=== PATIENT | female | born 1960 | race Caucasian/White ===

== ENCOUNTER 2023-07-14 07:49 | Observation (INO) ==
--- NOTE | 2023-07-05 10:54 | Anesthesiology Consultation ---
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 2021 stress echo, showing stress imaging with findings consistent with RCA/Lcx territory ischemia...congenitally bicuspid aortic valve with mild AI present. Abnormal prompted cardiac catheterization, with showed angiographically normal coronary arteries...EKG obtained in clinic today showing normal sinus rhythm with ventricular response of 79 bpm...easily able to meet METS greater than 4, without the development of anginal symptoms. Revised cardiac risk index score of 0 points (class I risk) or 3.9% 30 day risk of , [place] or cardiac arrest. No further cardiac testing recommended prior to undergoing planned oracle scm consultant procedure. .Will update echo...does not need to occur prior to planned procedure..." - tirzepatide instructions: Patient informed by PAT RN to stop 7 days prior to surgery. - Per technology manager on 07/05/23: No known infectious disease contacts, current infectious disease symptoms in past 10 days or COVID positive test result in the past 30 days. Chart Review Chart Review: Acceptable Risk for Surgery and Patient NOT seen in Pre Admission Testing History Surgery Operation Date: 07/14/23 07:00 Proposed Procedures p Robotic Assisted Supracervical Hysterectomy, Robotic Assisted Sacral Colpopexy - Jeffery Hamlin MD Height/Weight Height: 5 ft 4 in Weight: 73.028 kg Allergies Allergy/AdvReac Type Severity Reaction Status Date / Time sulfamethoxazole Allergy Mild Rash Verified 07/05/23 10:02 [From Bactrim] trimethoprim [From Bactrim] Allergy Mild Rash Verified 07/05/23 10:02 Medications Home Medications Medication Instructions Recorded Confirmed Last Taken [place] [facility] 1 tab PO QAM 07/05/23 07/05/23 Unknown Cynthia 1 tab PO QAM 07/05/23 07/05/23 Unknown acetaminophen 650 mg 650 mg PO Q12H PRN Pain 07/05/23 07/05/23 Unknown tablet,extended release clonidine HCl 0.1 mg tablet 0.1 mg PO TID PRN hot flashes/BP 07/05/23 07/05/23 Unknown diphenhydramine HCl 25 mg capsule 50 mg PO HS PRN Sleep 07/05/23 07/05/23 Unknown (Benadryl) famotidine 20 mg tablet (Pepcid) 20 mg PO BID PRN Heartburn 07/05/23 07/05/23 Unknown gabapentin 100 mg tablet 100 mg PO BID PRN Pain 07/05/23 07/05/23 Unknown levothyroxine 125 mcg tablet 125 mcg PO QAM 07/05/23 07/05/23 Unknown (Synthroid) loratadine 10 mg capsule 10 mg PO BID PRN allergies 07/05/23 07/05/23 Unknown melatonin 10 mg tablet,extended 10 mg PO QPM 07/05/23 07/05/23 Unknown release oxybutynin chloride 5 mg tablet 5 mg PO BID PRN urinary symptoms 07/05/23 07/05/23 Unknown rosuvastatin 10 mg tablet (Crestor) 10 mg PO QAM 07/05/23 07/05/23 Unknown spironolactone 25 mg tablet 50 mg PO QAM 07/05/23 07/05/23 Unknown tirzepatide 5 mg/0.5 mL 5 mg subcut WK 07/05/23 07/05/23 Unknown subcutaneous pen injector (Mounjaro) Past Medical History Medical History (Updated 07/05/23 @ 10:48 by Megha Ventura PA-C) Aortic regurgitation follows with [facility] cardio "mild" Arm pain rt arm pain, 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, reason for gabapentin Cardiac murmur has bicuspid instead of tricuspid valve - mild - sees [facility] cardio Female bladder prolapse GERD (gastroesophageal reflux disease) Hiatal hernia History of chronic urinary tract infection History of postoperative nausea and vomiting Hypercholesteremia Hypothyroid Insomnia Orthostatic hypertension not noted in S cardio or PCP records, per patient taking clonidine PRN for this, PCP records note prn clonidine is for hot flashes Seasonal allergies Urinary frequency Past Surgical History Surgical History History of colonoscopy History of esophagogastroduodenoscopy (EGD) Hx of cardiac catheterization (~2020) [facility], pos stress, no stents, Hx of removal of cyst ganglion cyst, left hand, had general anesthesia Social History Smoking Status: Never smoker Do You Dip or Chew Tobacco: No Hx Alcohol Use: No Hx Substance Use: No substance use type: does not use Testing Laboratory Results 06/15/23 WBC: 6.3 H/H: 13/40 PLATELETS: 327,000 SODIUM: 137 POTASSIUM: 4 CHLORIDE: 100 CO2: 27 BUN: 15 CREATININE: 0.8 GLUCOSE: 107 Electrocardiogram Date: 06/23/23 NSR, rate 79 bpm Left axis deviation Stress Test Date: 04/19/21 Exercise Positive for inducible ischemia-subsequent cardiac catheterization completed 05/03/21: normal coronary arteries EF 55-59% Mild cLVH Grade I diastolic dysfunction Congenitally bicuspid aortic valve, mild aortic valve regurgitation Cardiac Catheterization Date: 05/03/21 Left main: no evidence of disease LAD: medium caliber vessel Cx: no evidence of disease RCA: no evidence of disease Coronary arteries are angiographically normal
--- NOTE | 2023-07-14 05:04 | History & Physical Report ---
Date of Service July 14, 2023 Assessment & Plan (1) Incomplete uterovaginal prolapse: Plan: Options were reviewed including doing nothing, Kegel exercises, pessary therapy or surgery. Patient was interested in surgery. I reviewed vaginal approach versus robotic a pproaches. She was interested in the robotic approach and also requested to have her ovaries removed. We reviewed robotic hysterectomy, sacral colpopexy, possible posterior repair, and cystoscopy We further reviewed the risks of surgery including infection, bleeding, injury, pain, mesh exposure, bowel obstruction, urinary incontinence, urinary retention and prolapse recurrence. Patient requests to keep her ovaries. Patient counseled that she may develop cysts, tumors, or even ovarian cancer in the future. She understands and still wishes to keep her oaries. All questions answered. Informed consent confirmed. Present on Admission?: Yes Admission and Anticipated Discharge Date Admission Date: 07/14/2023 Anticipated date of discharge: 07/15/23 History of Present Illness Chief Complaint: Uterovaginal prolapse Primary Care Provider: NO PCP Paula Arzate complains of feeling a vaginal bulge in the past year. Since seeing Dr. Olsen a month ago, she feels that the bulge has improved somewhat. But she has history of 5-6 UTI's this past year and is concerned that the prolapse is contributing to the UTI's. She has some urinary frequency and urgency every 3 hours, nocturia x 2. A few episodes of Urge incontinence if she waits tool long. She denies stress incontinence with coughing or sneezing currently or in the distant past. She feels that she must void twice at each visit to the restroom to completely empty. Allergies Allergy/AdvReac Type Severity Reaction Status Date / Time sulfamethoxazole Allergy Mild Rash Verified 07/14/23 08:11 [From Bactrim] trimethoprim [From Bactrim] Allergy Mild Rash Verified 07/14/23 08:11 Home Medications Medication Instructions Recorded Confirmed Type [place] [facility] 1 tab PO QAM 07/05/23 07/14/23 History Cynthia 1 tab PO QAM 07/05/23 07/14/23 History acetaminophen 650 mg 650 mg PO Q12H PRN Pain 07/05/23 07/14/23 History tablet,extended release clonidine HCl 0.1 mg tablet 0.1 mg PO TID PRN hot flashes/BP 07/05/23 07/14/23 History diphenhydramine HCl 25 mg capsule 50 mg PO HS PRN Sleep 07/05/23 07/14/23 History (Benadryl) famotidine 20 mg tablet (Pepcid) 20 mg PO BID PRN Heartburn 07/05/23 07/14/23 History gabapentin 100 mg tablet 100 mg PO BID PRN Pain 07/05/23 07/14/23 History levothyroxine 125 mcg tablet 125 mcg PO QAM 07/05/23 07/14/23 History (Synthroid) loratadine 10 mg capsule 10 mg PO BID PRN allergies 07/05/23 07/14/23 History melatonin 10 mg tablet,extended 10 mg PO QPM 07/05/23 07/14/23 History release oxybutynin chloride 5 mg tablet 5 mg PO BID PRN urinary symptoms 07/05/23 07/14/23 History rosuvastatin 10 mg tablet (Crestor) 10 mg PO QAM 07/05/23 07/14/23 History spironolactone 25 mg tablet 50 mg PO QAM 07/05/23 07/14/23 History tirzepatide 5 mg/0.5 mL 5 mg subcut WK 07/05/23 07/14/23 History subcutaneous pen injector (Mounjaro) Past Med/Surg History Problem List Incomplete uterovaginal prolapse Medical History History of chronic urinary tract infection Aortic regurgitation follows with [facility] cardio "mild" Cardiac murmur has bicuspid instead of tricuspid valve - mild - sees [facility] cardio Orthostatic hypertension not noted in [facility] cardio or PCP records, per patient taking clonidine PRN for this, PCP records note prn clonidine is for hot flashes Hypercholesteremia Hypothyroid Insomnia Arm pain rt arm pain, 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, reason for gabapentin Female bladder prolapse Urinary frequency Seasonal allergies History of postoperative nausea and vomiting Hiatal hernia GERD (gastroesophageal reflux disease) Surgical History Hx of cardiac catheterization (~2020) [facility] [place], pos stress, no stents, History of esophagogastroduodenoscopy (EGD) History of colonoscopy Hx of removal of cyst ganglion cyst, left hand, had general anesthesia Social History Smoking Status: Never smoker Second Hand Exposure: No; Do You Dip or Chew Tobacco: No; Tobacco Cessation Education Requested by Patient: No Hx Alcohol Use: No Hx Substance Use: No Preferred Language: Croatian Communication Ability: Effective Social Economist Required: No Beliefs That Will Affect Care: None Current Living Situation: Spouse Other Information That Helps Us Care for You: No Feels Safe at Home: Yes Safety Concerns: Feels Safe At This Time Assistive Devices: Glasses Review of Systems Review of Systems: All systems reviewed & are unremarkable except as noted in HPI & below Physical Exam Constitutional: WD/WN, vitals as above Eyes: PERRL, conjunctivae normal, anicteric sclerae Neck: normal visual inspection Respiratory: normal respiratory effort Cardiovascular: Rate/Rhythm: regular rate and regular rhythm Gastrointestinal (Abdomen): Inspection/Auscultation: abdomen normal to inspection Skin: no rashes, warm and dry Psychiatric: A+Ox3, euthymic affect Results & Data Results & Data Laboratory Results hgb 13.1 Cr 0.8 Hgb A1c 5.9 Code Status & VTE Plan VTE Prophylaxis Plan VTE Prophylaxis will be ordered: Yes
[2023-07-14] MEDS ORDERED: SUGAMMADEX SODIUM 200 MG/2 ML VIAL IV ONE (08:27)
[2023-07-14] MEDS ORDERED: fentaNYL citrate PF 100 MCG/2 ML VIAL ONE (08:27)
[2023-07-14] MEDS ORDERED: DEXAMETHASONE SOD INJ 4 MG/ML VIAL ONE (08:27)
[2023-07-14] MEDS ORDERED: LIDOCAINE 2% 2 ML VIAL/AMP(20MG/ML) INFIL ONE (08:27)
[2023-07-14] MEDS ORDERED: MIDAZOLAM HCL 1 MG/ML 2ML VIAL ONE (08:27)
[2023-07-14] MEDS ORDERED: ONDANSETRON INJ 2 MG/ML 2 ML VIAL ONE (08:27)
[2023-07-14] MEDS ORDERED: PROPOFOL IV EMULSION 10 MG/ML 20 ML VIAL IV ONE (08:27)
[2023-07-14] MEDS ORDERED: ROCURONIUM BROMIDE 10 MG/ML 5 ML VIAL IV ONE (08:27)
[2023-07-14] MEDS: LR 15ML/HR IV SCH (08:29)
[2023-07-14] MEDS: metroNIDAZOLE 500 MG/100 ML BAG IV SCH (08:39)
[2023-07-14] MEDS ORDERED: ePHEDrine sulfate 50 MG/ML AMP IV PRN (09:22)
[2023-07-14] MEDS ORDERED: fentaNYL citrate PF 100 MCG/2 ML VIAL IV PRN (09:22)
[2023-07-14] MEDS ORDERED: PROMETHAZINE HCL 6.25 MG in SODIUM CHLORIDE 0.9% 50 ML IV PRN (09:22)
[2023-07-14] MEDS ORDERED: ONDANSETRON INJ 2 MG/ML 2 ML VIAL IV PRN (09:22)
[2023-07-14] MEDS ORDERED: ATROPINE SULFATE 0.1 MG/ML 10ML SYR IV PRN (09:22)
[2023-07-14] MEDS ORDERED: HYDROmorphone INJ 2 MG/ML SYR/VIAL IV PRN (09:22)
[2023-07-14] MEDS ORDERED: ACETAMINOPHEN 1000 MG/100 ML IV IV ONE (09:26)
[2023-07-14] MEDS: ceFAZolin 2000MG 2,000 MG/15 ML SYR IV SCH (09:52)
[2023-07-14] MEDS ORDERED: HYDROmorphone INJ 2 MG/ML SYR/VIAL ONE (10:15)
[2023-07-14] MEDS ORDERED: oxyCODONE/ACETAMINOPHEN 5mg/325mg TAB PO PRN ×2 (12:50)
[2023-07-14] MEDS: BUPIVACAINE 0.5 % 5 MG/1 ML MPF 30ML VIAL ONE (12:50)
[2023-07-14] MEDS ORDERED: IBUPROFEN 600 MG TAB PO PRN (12:50)
[2023-07-14] MEDS ORDERED: FAMOTIDINE 20 MG TAB PO PRN (12:55)
--- NOTE | 2023-07-14 13:03 | Operative Report ---
Post Operative Report Pre & Post Diagnosis Operation Date: 07/14/23 09:50 <No data on this case meets the specified criteria> Preoperative Diagnosis: Uterovaginal prolapse, cystocele Postoperative Diagnosis: Same I identified the patient and participated in the time-out.: Yes Procedure Operation Date: 07/14/23 09:50 <No data on this case meets the specified criteria> Robotic Hysterectomy, Bilateral Salpingectomy, Sacral colpopexy, Cystoscopy Surgeon Jeffery Hamlin MD Technical Training Coordinator Jyotsna Page PA-C Estimated Blood Loss 30 Findings Consistent with Post-Op Diagnosis Grade 3 cystocele, Grade 2 uterine prolapse. Atrophic normal appearing ovaries bilaterally. Normal cystoscopy without lesions. Excellent efflux of ureters bilaterally. Fluids Crystalloid Specimens cervix, uterus, bilateral fallopian tubes Drains Chaves catheter Anesthesia Type General Complications none Disposition Accompanied Patient To Recovery: Yes Disposition: Recovery Room Indications symptomatic uterovaginal prolapse, feeling of incomplete bladder emptying, recurrent UTI's Description of Procedure After Paula rAzate was identified in the preoperative area, the diagnosis, indications, risks, benefits, and alternatives were reviewed. Patient requested to keep her ovaries but consented to robotic hysterectomy, bilateral salpingectomy, sacral colpopexy, cystoscopy. Risks of infection, bleeding, injury, urinary incontinence, mesh exposure, pain were discussed. All questions answered. Informed consent confirmed. She was then taken to the operating room and given general anesthesia per anesthesia service. She was placed in dorsal lithotomy position using Cuauhtemoc stirrups. She was prepped and draped in the usual fashion. Time out was performed. A Chaves catheter was inserted into the bladder. The cervix was visible but the cervical os was obliterated. A bulb syringe attached to a Hulka tenaculum was placed in the vagina. At the umbilicus, an 8 mm skin incision was made. An 8 mm trocar with Optiview was advanced through the incision, fascia, peritoneum, into the abdominal cavity under direct visualization. CO2 gas was attached with an opening pressure of less than 5 mm Hg. The abdomen was insufflated. On the left, two 8 mm trocars were placed under direct visualization. The right, two 8 mm trocars were placed under direct visualization. Patient was placed in Trendelenburg position to allow retraction of the bowel out the pelvis. The robot was docked and the robotic instruments were placed. The cornua of the uterus was grasped to elevate the uterus out of the pelvis. The left fallopian tube was dissected from the left atrophic ovary. The left utero-ovarian pedicle was grasped, vessel sealed, and transected. The left round ligament was grasped, vessel sealed, and transected. The bladder flap was developed. The left uterine vessels were dissected free. The left uterine vessels were grasped, vessel sealed, and transected at the level of the bulb syringe previously placed in the vagina. The right fallopian tube was dissected from the right atrophic ovary. The right utero-ovarian pedicle was grasped, vessel sealed, and transected. The right round ligament was grasped, vessel sealed, and transected. The bladder flap was completed. The right uterine vessels were dissected free. The right uterine vessels were grasped, vessel sealed, and transected at the level of the bulb syringe previously placed in the vagina. The bulb syringe was well visualized at the junction of the cervix and vagina. A colpotomy incision was made around the cervix. The cervix, uterus, bilateral fallopian tubes were delivered out the vagina and sent to pathology as specimen. Excellent hemostasis was noted. The cuff was closed in two layers with 0 delayed absorbable V-lock suture. The bladder was then dissected off the anterior vagina for 6 cm. The rectum was dissected off the posterior vagina for 8 cm. The peritoneum overlying the sacral promontory was incised and extended along the right derik-colic gutter. The Y-mesh was secured to the anterior and posterior vaginal rivers with interrupted sutures of CV-3 [place]-ruth suture. The tail end of the y-mesh was secured to the anterior longitudnal ligament just below the sacral promontory with two interrupted sutures of CV-0 [place] ruth. Excellent hemostasis was noted. The peritoneum was closed over the Y mesh with 2-0 v-lock suture in a running fashion. The robot was undocked. The trocars were removed under direct visualization. The gas was allowed to recede. The skin incisions were closed with 4-0 Monocryl in a subcuticular fashion. The bulb syringe was removed from the vagina. The vaginal cuff was intact and well supported. The anterior and posterior vaginal rivers were well supported with a normal genital hiatus. The Chaves catheter was removed. Cystoscopy was performed in a systematic fashion. No lesions were noted. Excellent efflux of ureters were noted bilaterally. The bladder was drained, the cystoscoped removed, and the Chaves catheter was reinserted. All sponge, lap and needle counts were correct. The patient was awakened, extubated, and sent to recovery room in good condition. I attest to the content of the Intraoperative Record and any orders documented therein. Any exceptions are noted below. No qualified resident was available. An advanced practice provider was necessary for assistance to position the patient, drape the patient, retract, irrigate, exchange robotic instruments, and close incisions.
--- NOTE | 2023-07-14 13:59 | Anesthesiology Progress Note ---
Date of Service July 14, 2023 Anesthesia Post Procedure Vital Signs Vital Signs: Temp Pulse Pulse Resp BP Pulse Ox O2 Del Method 07/14/23 13:50 36.3 C L 77 11 L 158/75 H 92 Room Air 07/14/23 13:40 36.3 C L 78 17 158/86 H 99 Room Air 07/14/23 13:30 74 15 131/85 100 Oxymask 07/14/23 13:20 78 13 171/81 H 98 Oxymask 07/14/23 13:10 78 17 179/80 H 97 Oxymask 07/14/23 13:00 79 13 169/77 H 98 Oxymask 07/14/23 12:54 36.1 C L 99 H 17 163/81 H 98 Oxymask 07/14/23 08:17 36.5 C 66 20 124/65 99 Room Air O2 Flow Rate 07/14/23 13:50 2 07/14/23 13:40 07/14/23 13:30 3 07/14/23 13:20 5 07/14/23 13:10 7 07/14/23 13:00 7 07/14/23 12:54 10 07/14/23 08:17 Transfer of Care Handoff Completed per policy Notes Mental Status: alert / awake / arousable Patient Amnestic to Procedure: Yes Nausea / Vomiting: adequately controlled Pain: adequately controlled Airway Patency, RR, SpO2: stable & adequate BP & HR: stable & adequate Hydration State: stable & adequate Anesthetic Complications: no major complications apparent
[2023-07-14] MEDS: GLYCERIN ADULT 12 SUPP/BOX SUPP PR ONE (15:45)
[2023-07-14] MEDS ORDERED: KETOROLAC TROMETHAMINE 15 MG/ML VIAL IM PRN (16:10)
[2023-07-14] MEDS ORDERED: Nursing to Pharmacy Communication SCH ×2 (16:15→21:30)
[2023-07-14] MEDS: KETOROLAC TROMETHAMINE 15 MG/ML VIAL ONE (16:17)
[2023-07-14] MEDS ORDERED: oxyBUTYnin chloride 5 MG TAB PO PRN (19:13)
[2023-07-14] MEDS ORDERED: diphenhydrAMINE Capsule 25 MG CAP PO PRN (19:13)
[2023-07-14] MEDS ORDERED: cloNIDine HCL 0.1 MG TAB PO PRN (19:13)
[2023-07-14] MEDS ORDERED: LORATADINE 10 MG TAB PO PRN (19:20)
[2023-07-14] MEDS ORDERED: GABAPENTIN 100 MG CAP PO PRN (21:00)
[2023-07-14] MEDS: NITROFURANTOIN MONOHYDRATE 100 MG CAP PO SCH (21:00)
[2023-07-14] MEDS: ACETAMINOPHEN 325 MG TAB PO PRN (21:01)
[2023-07-14] MEDS: MELATONIN 3 MG TAB PO SCH (21:01)
[2023-07-14] MEDS: cloNIDine HCL 0.1 MG TAB PO SCH (22:20)
[2023-07-15] MEDS: LEVOTHYROXINE SODIUM 125 MCG TABLET PO SCH (05:59)
--- NOTE | 2023-07-15 06:37 | Gynecologic Progress Note ---
Date of Service July 15, 2023 Assessment & Plan (1) Incomplete uterovaginal prolapse: Plan: POD#1 s/p robotic total hysterectomy, bilateral salpingectomy, sacral colpopexy, cystoscopy Doing well. Discharge home today. post op instructions reviewed. Procedure r kathe. All questions answered. Follow up in 2 weeks and 6 weeks. Ibuprofen and Macrobid RX. Present on Admission?: Yes Admission and Anticipated Discharge Date Admission Date: July 14, 2023 Anticipated date of discharge: 07/15/23 Subjective Feeling well. Pain well controlled. No nausea, no SOB, noCP Review of Systems Review of Systems: All systems reviewed & are unremarkable except as noted in HPI & below Physical Exam Constitutional: WD/WN, vitals as above Eyes: PERRL, conjunctivae normal, anicteric sclerae Neck: normal visual inspection Respiratory: normal respiratory effort Cardiovascular: Rate/Rhythm: regular rate and regular rhythm Gastrointestinal (Abdomen): Inspection/Auscultation: abdomen normal to inspection Incisions clean dry and intact Musculoskeletal: NT calves, neg edema Skin: no rashes, warm and dry Psychiatric: A+Ox3, euthymic affect Results & Data Vital Signs (Past 12 Hours) Vital Signs Temp Pulse Pulse Resp BP BP Pulse Ox 07/15/23 03:17 37 C 83 18 99/59 L 97 07/14/23 23:22 37.6 C H 98 H 18 122/64 94 07/14/23 21:00 37.5 C 109 H 18 148/90 H 148/90 H 07/14/23 21:00 O2 Del Method 07/15/23 03:17 Room Air 07/14/23 23:22 Room Air 07/14/23 21:00 Room Air 07/14/23 21:00 Room Air
--- NOTE | 2023-07-15 06:47 | Discharge Summary ---
Date of Service July 15, 2023 Admission HPI Per Admitting Provider Paula Arzate complains of feeling a vaginal bulge in the past year. Since seeing Dr. Olsen a month ago, she feels that the bulge has improved somewhat. But she has history of 5-6 UTI's this past year and is concerned that the prolapse is contributing to the UTI's. She has some urinary frequency and urgency every 3 hours, nocturia x 2. A few episodes of Urge incontinence if she waits tool long. She denies stress incontinence with coughing or sneezing currently or in the distant past. She feels that she must void twice at each visit to the restroom to completely empty. Admission Exam (Per Admitting) Constitutional WD/WN, vitals as above Eyes PERRL, conjunctivae normal, anicteric sclerae Neck normal visual inspection Respiratory normal respiratory effort Cardiovascular Rate/Rhythm: regular rate and regular rhythm Gastrointestinal (Abdomen) Inspection/Auscultation: abdomen normal to inspection Skin no rashes, warm and dry Psychiatric A+Ox3, euthymic affect Discharge Data Procedures Performed Operation Date: 07/14/23 09:50 Actual Procedures p Robotic Assisted Supracervical Hysterectomy, Robotic Assisted Sacral Colpopexy(Not Applicable) - Jeffery Hamlin MD Hospital Course (1) Incomplete uterovaginal prolapse: POD#1 s/p robotic total hysterectomy, bilateral salpingectomy, sacral colpopexy, cystoscopy Doing well. Discharge home today. post op instructions reviewed. Procedure reviewed. All questions answered. Follow up in 2 weeks and 6 weeks. Ibuprofen and Macrobid RX.
[2023-07-15 06:58] LABS: Basophils # (auto) 0.01 K/uL (0.00-0.20); Basophils % (auto) 0.1 %; Hematocrit (blood only) 36.7 % (37.0-47.0); Hemoglobin 12.1 g/dl (12.0-16.0); Immature Granulocytes # (auto) 0.21 K/uL (0.01-0.20); Immature Granulocytes % (auto) 1.9 %; Lymphocytes # (auto) 0.91 K/uL (1.20-3.40); Lymphocytes % (auto) 8.1 %; Mean Corpuscular Hemoglobin 30.8 pg (25.0-34.0); Mean Corpuscular Volume 93.4 fL (80.0-100.0); Monocytes # (auto) 0.96 K/uL (0.11-0.59); Monocytes % (auto) 8.5 %; Neutrophils # (auto) 9.17 K/uL (1.40-6.50); Neutrophils % (auto) 81.4 %; Platelet Count 276 K/uL (130-400); RDW Coefficient of Variation 11.7 % (11.5-14.5); RDW Standard Deviation 40.4 fL (36.4-46.3); Red Blood Count 3.93 M/uL (4.20-5.40); White Blood Count 11.26 K/ul (4.8-10.8)
[2023-07-15 07:02] LABS: BUN Creatinine Ratio 19.4 (10-20); Calcium 8.6 mg/dl (8.6-10.3); Creatinine Clr Calc Pharmacy 82.5 ml/min; Est GFR (African American) 106.9 ml/min; Est GFR (Non-African American) 92.2 ml/min; Potassium 4.6 mmol/L (3.5-5.1)
[2023-07-15] MEDS: SPIRONOLACTONE 25 MG TAB PO SCH (08:24)
[2023-07-15] MEDS: ROSUVASTATIN CALCIUM 10 MG TAB PO SCH (08:24)
[2023-07-15] MEDS ORDERED: [UNRECOGNIZED DRUG - REMARK] PO SCH (09:00)
[2023-07-15] MEDS ORDERED: [UNRECOGNIZED DRUG - OTHER] PO SCH (09:00)
--- OUTSIDE RECORDS SUMMARY | 2023-07-15 09:53 | External Medical Summary ---
Author Name Unknown Address Unknown Organization [id number]:[facility] - [address] [facility] [address] Laboratory Report Ordering Provider Test Date Status SHANDA MARY 07/10/2023 07:33:50 Final Observation Date Value Abnormality Reference (Units ) Status Bacteria identified in Specimen by Culture 07/10/2023 07:33:50 [id number]^ENTEROC OCCUS SPECIES Abnormal Final 10,000 to 100,000 colonies/m L Enterococcus species Bacteria identified in Specimen by Culture 07/10/2023 07:33:50 [id number]^STAPHYLOCOCCUS AUREUS MRSA Abnormal Final 10,000 to 100,000 colonies/m L Staphylococcus aureus MRSA, This patient may require isolation. Performing Location [facility] [place] [address] [facility] [address] Ordering Provider Test Date Status SHANDA MARY 07/10/2023 07:33:50 Final Observation Date Value Abnormality Reference (Units ) Status Ampicillin 07/10/2023 07:33:50 <=2 Susceptible Final Nitrofurantoin susceptibility 07/10/2023 07:33:50 <=16 Susceptible Final Tetracyclinesusceptibility 07/10/2023 07:33:50 >=16 Resistant Final Vancomycinsusceptibility 07/10/2023 07:33:50 1 Susceptible Final Performing Location [facility] [place] [address] [facility] [id number] Ordering Provider Test Date Status SHANDA MARY 07/10/2023 07:33:50 Final Observation Date Value Abnormality Reference (Units ) Status Nitrofurantoin susceptibility 07/10/2023 07:33:50 <=16 Susceptible Final Oxacillinsusceptibility 07/10/2023 07:33:50 >=4 Resistant Final Oxacillin/Methicillin resist ant Staphylococci are considered clinically resistant to all Beta-lactam (Penicillin and Cephalosporin) antibiotics. Quinolone antibiotics should also not be used for Staphylococci that are Oxacillin resistant. Tetracyclinesusceptibility 07/10/2023 07:33:50 <=1 Sera ceptible Final TMP-SMZ susceptibility 07/10/2023 07:33:50 <=10 Suscept ible Final Vancomycinsusceptibility 07/10/2023 07:33:50 1 Susce ptible Final Test: Culture, Urine, Quanti tative
Specimen Source: Urine, Clean Catch
Specimen Type: Urine
Specimen Date: 07/10/2023 7:33 AM
Result Date: 07/13/2023 2:06 PM
Result Status: Final result
Abnormal: Yes
Resulting Lab: [facility]
[address]
[facility] [address]

CULTURE

10,000 to 100,000 colonies/mL Enterococcus species (Abnormal)

10,000 to 100,000 colonies/mL Staphylococcus aureus MRSA, This patient may
require isolation. (Abnormal)

SUSCEPTIBILITY

Enterococcus Staphylococcus
species aureus MRSA, This
patient may
require
isolation.
METHOD MICROBROTH MICROBROTH
DILUTIONS DILUTIONS

AMPICILLIN <=2 Susceptible
NITROFURANTOIN <=16 Susceptible <=16 Susceptible
OXACILLIN >=4 Resistant
TETRACYCLINE >=16 Resistant <=1 Susceptible
TRIMETH/SULFAMETHOXAZOLE <=10 Susceptible
VANCOMYCIN 1 Susceptible 1 Susceptible

null Performing Location [facility] [place] [address] [facility] [address]
--- OUTSIDE RECORDS SUMMARY | 2023-07-15 09:53 | External Medical Summary | Summary of Care ---
Author Name Unknown Organization [facility] Address [address] [place] [address] Phone [phone] Care Team Providers Care Associate Technician Name Role Phone Petra De La Cruz PA-C Primary Care Provider Reason for Visit * Reason Comments Outpatient Testing Encounter Details Date Type Department Care Team (Late st Contact Info) Description 07/10/2023 7:40 AM EDT Laboratory Laboratory, [place] [id number] [place] [address] [facility], Lab [address] [place] [id number] Overweight (BMI 25.0-29.9); Recurrent UTI Allergies Active Allergy Reactions Criticality Noted Date Comments Sulfa Antibiotics Rash Low 08/04/2020 documented as of this encounter (statuses as of 07/10/2023) Medications Medication Sig Dispensed Refills Start Date End Date Status diphenhydrAMINE HCl 25 MG Oral Capsule at bedtime as needed. 0 Active Caltrate 600+D3 Soft 600-800 MG-UNIT Oral Tablet Chewable (Calcium Carb-Cholecalciferol ) Take by mouth. Patient takes 2 daily. 0 Active Slow Fe 142 (45 Fe) MG Oral Tablet Extended Release (Ferrous Sulfate ER) Take by mouth 2 times a day. 0 Active Rosuvastatin Calcium 10 MG Oral Tablet (Crestor)Indications :Other hyperlipidemia TAKE 1 TABLET BY MOUTH IN THE MORNING 30 Tablet 5 09/19/2022 Active oxyBUTYnin Chloride 5 MG Oral Tablet (Ditropan)Indication s:Overactive bladder due to prolapse of female genital organ TAKE ONE-HALF (1/2) TABLET IN THE MORNING, ONE-HALF (1/2) TABLET AT NOON AND ONE-HALF (1/2) TABLET BEFORE BEDTIME 135 Tablet 3 12/19/2022 Active Additional Information Patient taking differently: Takes 1/2 tab in morning and 1 tablet at night, Reported on 06/23/2023 Estradiol 0.1 MG/GM Vaginal Cream (Estrace) Apply pea sized amount (0.5 gm) vaginally every other night. 42.5 g 3 01/11/2023 Active Additional Information Patient not taking.Reported on 06/23/2023 cloNIDine HCl 0.1 MG Oral Tablet (Catapres) TAKE 1 TABLET BY MOUTH EVERY MORNING, 1 TABLET BY MOUTH AT NOON AND 1 TABLET BY MOUTH AT BEDTIME 270 Tablet 0 04/14/2023 Active Additional Information Patient taking differently: TAKE TABLET BY MOUTH EVERY MORNING, AND 2 TABLET BY MOUTH AT BEDTIME, Reported on 06/23/2023 Synthroid 125 MCG Oral TabletIndications:Ac quired hypothyroidism,Abnor mal stress echocardiogram TAKE 1 TABLET BY MOUTH IN THE MORNING AT LEAST 30 MINUTES PRIOR TO BREAKFAST OR OTHER MEDICATIONS 90 Tablet 0 05/10/2023 Active Spironolactone 25 MG Oral Tablet (Aldactone) TAKE 1 TO 2 TABLETS ONCE DAILY 180 Tablet 1 06/05/2023 Active Gabapentin 100 MG Oral Capsule (Neurontin)Indicatio ns:Nerve pain TAKE 1 CAPSULE BY MOUTH ONCE DAILY NEEDED FOR PAIN 90 Capsule 0 06/19/2023 Active documented as of this encounter (statuses as of 07/10/2023) Active Problems Problem Noted Date Diagnosed Date Postoperative state 01/23/2023 YONIS III (cervical intraepithelial neoplasia III) 11/29/2022 Encounter for Papanicolaou c ervical smear to confirm findings of recent normal smear following initial abnormal smear 11/29/2022 Dyslipidemia, goal LDL below 70 04/22/2021 Positive cardiac stress test 04/22/2021 HTN, goal below 150/90 08/04/2020 Acquired hypothyroidism 08/04/2020 Lower extremity edema 08/04/2020 Prolapse of female genital organs 11/13/2018 Mixed stress and urge urinary incontinence 11/13 documented as of this encounter (statuses as of 07/10/2023) Immunizations Name Administration Dates Next Due PPD 01/28/2023, 2,12/21/2021,2021,06/12/2020 Seasonal Influenza Virus Vac cine, Unspecified Formulation 01/06/2023 Seasonal Influenza, PF, 6 M & above, IM , (FluLaval or Fluzone) 10/30/2020 Seasonal Influenza, QUAD, wi th Preserv, 6 mons & Above, 0.5 mL, IM 12/28/2021 TDAP (age 10 and older)(Boostrix) 08/04/2020 documented as of this encounter Social History Tobacco Use Types Packs/Day Years Used Date Smoking Tobacco: Never Smokeless Tobacco: Never Alcohol Use Standard Drinks/Week Comments Yes 0 (1 standard drink = 0.6 oz pur e alcohol) occ PHQ-2 Answer Date Recorded PHQ Adult Total Score 0 06/19/2023 Hunger Vital Sign Answer Date Recorded Within the past 12 months, y ou worried that your food would run out before you got the money to buy more. Never true 08/03/19 23 Within the past 12 months, t he food you bought just didn't last and you didn't have money to get more. Never true 08/02/2022 Sex and Gender Information Value Date Recorded Sex Assigned at Female 04/21/2021 12:28 PM EST Gender Identity Female 04/21/2021 12:28 PM EST Sexual Orientation Straight 04/21/2021 12 :28 PM EST Job Start Date Occupation Industry Not on file Not on file Not on file documented as of this encounter Plan of Treatment Upcoming Encounters Date Type Department Care Team (Late st Contact Info) Description 07/21/2023 1:15 PM EDT Cardiac Studies Cardiac Studies [facility] [address] [facility] [place] [address] 07/26/2023 8:00 AM EDT Telemedicine Urogynecology [facility] [address] [address] Jeffery Hamlin MD [address] [address] 07/31/2023 10:15 AM EDT Appointment Radiology, [facility] [address] [place] [address] 07/31/2023 1:00 PM EDT Appointment Radiology, [facility] [address] [place] [address] 08/23/2023 3:10 PM EDT Office Visit Urogynecology [facility] [address] [facility] [place] [address] Jeffery Hamlin MD [address] [place] [address] 06/24/2024 5:00 PM EDT Office Visit Family Practice, [facility] [address] [place] [address] Petra De La Cruz PA-C [address] [place] [address] 07/10/2024 11:30 AM EDT Office Visit Cardiology, [place] [address] [place] [address] Kaila Simental, CURLY [address] [place] [address] Scheduled Orders Name Type Priority Associated Diagnoses Orde r Schedule URINALYSIS, REFLEX TO CULTUR E (CUP ONLY) Lab Routine Recurrent UTI Ordered: 07/10/2023 URINALYSIS, REFLEX TO CULTURE Lab Routine Recurrent UTI Ordered: 07/10/2023 Health Maintenance Due Date Last Done Comments HIV Screening 1975 Hepatitis C Screening 01/25/1976 Colonoscopy 2003 Fecal Occult Blood Test 2003 Sigmoidoscopy 2003 Zoster Vaccines (1 of 2) 01/25/2008 COVID-19 Vaccine ( - 2022- season) 2022 DXA Scan 2023 Pneumococcal Vaccine: 65+ Years (1 of 1 - PCV) 2023 Mammogram 04/11/2023 04/11/2022, 10/15/2020 GFR 06/14/2024 06/15/2023, 04/0 04/2022, 03/14/2022, Additional history exists TSH 06/14/2024 06/15/2023, 04/0 04/2022, 03/14/2022, Additional history exists Depression Screening 06/18/2024 06/19/2023 Cologuard 07/06/2025 07/06/2022, 04/2 10/2022, 06/25/2022 Colorectal Cancer Screening 07/06/2025 Albumin/Creatinine Ratio 05/07/2026 024, 03/14/2022, 04/20/2021 Diabetes Screening 06/14/2026 06/15/2023, 0 05/30/2022, 03/14/2022, Additional history exists Lipid Panel 06/14/2028 06/15/2023, 04/0 04/2022, 03/14/2022, Additional history exists DTaP,Tdap,and Td Vaccines (2 - Td or Tdap) 08/04/2030 08/04/2020 Cervical Cancer Screening Discontinued HPV/Co-Test Discontinued 07/18/2022 Pap Smear Discontinued 07/18/2022 Influenza Vaccine (FLU shot) Completed 01/06/2023, 12/28/2021, 10/30/2020 GARDASIL-HPV IMMUNIZATION SERIES Aged Out No longer eligible based on patient's age to complete this topic Hepatitis B Aged Out No longer eligi ble based on patient's age to complete this topic MENINGOCOCCAL (MENACTRA/MENVEO) Aged Out No longer eligible based on patient's age to complete this topic documented as of this encounter Medical Devices Not on filedocumented as of this encounter Visit Diagnoses Diagnosis Overweight (BMI 25.0-29.9) Overweight Recurrent UTI Urinary tract infection, site not specified documented in this encounter Advance Directives Latest Code Status on File Code Status Date Activated Date Inactivated Comments Full Code 12/13/2022 2:27 PM 12/13/2022 8:22 PM Thi s order reflects the patients wishes and were consensually agreed upon. Question Answer Comments Discussion of Advance Directives occurred with: Not Discussed due to patient's condition Care Teams Associate Technician Relationship Specialty Start Date End Date Petra De La Cruz PA-C [facility] [place] [address] PCP - General Physician Electronic Gluing Machine Operator 05/30/22 documented as of this encounter
--- OUTSIDE RECORDS SUMMARY | 2023-07-15 09:53 | External Medical Summary | Summary of Care ---
Author Name Unknown Organization [facility] Address [address] [place] [address] Phone [phone] Care Team Providers Care Bead Filler Name Role Phone Petra Land PA-C Primary Care Provider Reason for Visit * Reason Comments eRx-Medication Refill Encounter Details Date Type Department Care Team (Late st Contact Info) Description 07/12/2023 Refill Family [facility] [address] [place] [address] Petra Land PA-C [address] [place], [place] [id number] Allergies Active Allergy Reactions Criticality Noted Date Comments Sulfa Antibiotics Rash Low 08/04/2020 documented as of this encounter (statuses as of 07/12/2023) Medications Medication Sig Dispensed Refills Start Date End Date Status diphenhydrAMINE HCl 25 MG Oral Capsule at bedtime as needed. 0 Active Caltrate 600+D3 Soft 600-800 MG-UNIT Oral Tablet Chewable (Calcium Carb-Cholecalcifero l) Take by mouth. Patient takes 2 daily. 0 Active Slow Fe 142 (45 Fe) MG Oral Tablet Extended Release (Ferrous Sulfate ER) Take by mouth 2 times a day. 0 Active Rosuvastatin Calcium 10 MG Oral Tablet (Crestor)Indication s:Other hyperlipidemia TAKE 1 TABLET BY MOUTH IN THE MORNING 30 Tablet 5 3 Active oxyBUTYnin Chloride 5 MG Oral Tablet (Ditropan)Indicatio ns:Overactive bladder due to prolapse of female genital organ TAKE ONE-HALF (1/2) TABLET IN THE MORNING, ONE-HALF (1/2) TABLET AT NOON AND ONE-HALF (1/2) TABLET BEFORE BEDTIME 135 Tablet 3 3 Active Additional Information Patient taking differently: Takes 1/2 tab in morning and 1 tablet at night, Reported on 06/23/2023 Estradiol 0.1 MG/GM Vaginal Cream (Estrace) Apply pea sized amount (0.5 gm) vaginally every other night. 42.5 g 3 3 Active Additional Information Patient not taking.Reported on 06/23/2023 Synthroid 125 MCG Oral TabletIndications:A cquired hypothyroidism,Abno rmal stress echocardiogram TAKE 1 TABLET BY MOUTH IN THE MORNING AT LEAST 30 MINUTES PRIOR TO BREAKFAST OR OTHER MEDICATIONS 90 Tablet 0 4 Active Spironolactone 25 MG Oral Tablet (Aldactone) TAKE 1 TO 2 TABLETS ONCE DAILY 180 Tablet 1 4 Active Gabapentin 100 MG Oral Capsule (Neurontin)Indicati ons:Nerve pain TAKE 1 CAPSULE BY MOUTH ONCE DAILY NEEDED FOR PAIN 90 Capsule 0 4 Active Nitrofurantoin Monohyd Macro 100 MG Oral Capsule (Macrobid) Take 1 Capsule by mouth in the morning and 1 Capsule before bedtime. Do all this for 7 days. With food until gone. 14 Capsule 0 4 07/18/19 24 Active cloNIDine HCl 0.1 MG Oral Tablet (Catapres) TAKE 1 TABLET EVERY MORNING, 1 TABLET AT NOON AND 1 TABLET AT BEDTIME (NEED OFFICE VISIT) 270 Tablet 1 4 Active cloNIDine HCl 0.1 MG Oral Tablet (Catapres) TAKE 1 TABLET BY MOUTH EVERY MORNING, 1 TABLET BY MOUTH AT NOON AND 1 TABLET BY MOUTH AT BEDTIME 270 Tablet 0 4 07/12/19 24 Discontinued documented as of this encounter (statuses as of 07/12/2023) Active Problems Problem Noted Date Diagnosed Date [...] as of this encounter (statuses as of 07/12/2023) Immunizations Name Administration Dates Next Due PPD [...] money to buy more. Never true 08/03/19 Within the past 12 months, t he [...] on file documented as of this encounter Miscellaneous Notes * Telephone Encounter - Petra Land PA-C - 07/12/2023 8:27 AM EDT Signed Prescriptions: Disp Refills cloNIDine HCl 0.1 MG Oral Tablet (Catapres)270 Ta*1 Sig: TAKE 1 TABLET EVERY MORNING, 1 TABLET AT NOON AND 1 TABLET AT BEDTIME (NEED OFFICE VISIT) Authorizing Provider: PETRA LAND * Telephone Encounter - Adriana Skelton MED ASSIST - 07/12/2023 7:45 AM EDT Pending Prescriptions: Disp Refills cloNIDine HCl 0.1 MG Oral Tablet (Catapres)270 Ta*1 Sig: TAKE 1 TABLET EVERY MORNING, 1 TABLET AT NOON AND 1 TABLET AT BEDTIME (NEED OFFICE VISIT) * Telephone Encounter - Adriana Skelton MED ASSIST - 07/12/2023 7:44 AM EDT Pending Prescriptions: Disp Refills cloNIDine HCl 0.1 MG Oral Tablet (Catapre*270 Ta*3 Sig: TAKE 1 TABLET EVERY MORNING, 1 TABLET AT NOON AND 1 TABLET AT BEDTIME (NEED OFFICE VISIT) Last Visit: 06/19/2023 (in office), 11/11/2021 (telemedicine) Next Visit: 06/24/2024 Last date the medication was ordered: 04/14/2023 Patient Active Problem List Diagnosis Code HTN, goal below 150/90 I10 Acquired hypothyroidism E03.9 Lower extremity edema R60.0 Prolapse of female genital organs N81.9 Mixed stress and urge urinary incontinence N39.46 Dyslipidemia, goal LDL below 70 E78.5 Positive cardiac stress test R94.39 YONIS III (cervical intraepithelial neoplasia III) D06.9 Encounter for Papanicolaou cervical smear to confirm findings of recent normal smear following initial abnormal smear Z01.42 Postoperative state Z98.890 Labs: Lab Results Component Value Date/Time CREATININE - [facility] 0.8 06/15/2023 08:43 AM CREATININE, RANDOM URINE - [facility] 108 05/08/2023 04:11 PM Lab Results Component Value Date/Time POTASSIUM - [facility] 4.0 06/15/2023 08:43 AM Lab Results Component Value Date/Time TSH - [facility] 1.53 06/15/2023 08:43 AM Lab Results Component Value Date/Time LDL CHOLESTEROL (CALCULATED) - [facility] 113 06/15/2023 08:43 AM LDL CHOLESTEROL (CALCULATED) - [facility] 81 05/30/2022 11:30 AM Lab Results Component Value Date/Time ALT - [facility] 24 06/15/2023 08:43 AM Hemoglobin AIC Results: Lab Results Component Value Date/Time HEMOGLOBIN A1C - [facility] 5.9 (H) 07/10/2023 07:33 AM * Telephone Encounter - Ena Mcmahon - 07/12/2023 4:19 AM EDTPending Prescriptions: Disp Refills cloNIDine HCl 0.1 MG Oral Tablet [Pharmacy*270 Ta*3 Sig: TAKE 1TABLET EVERY MORNING, 1 TABLET AT NOON AND 1 TABLET AT BEDTIME (NEED OFFICE VISIT) documented in this encounter Plan of Treatment Upcoming Encounters Date Type Department Care Team (Late st Contact Info) Description 07/21/2023 1:15 PM EDT Cardiac Studies Cardiac Studies [facility] [address] [facility] [place] [address] 07/26/2023 8:00 AM EDT Telemedicine Urogynecology [facility] [address] [id number] Jeffery Hamlin MD [address] [place] [address] 07/31/2023 10:15 AM EDT Appointment Radiology, [facility] [address] [place] [address] 07/31/2023 1:00 PM EDT Appointment Radiology, [facility] [address] [place] [address] 08/23/2023 3:10 PM EDT Office Visit Urogynecology [facility] [address] [place] [address] Jeffery Hamlin MD [address] [facility] [place] [address] 06/24/2024 5:00 PM EDT Office Visit Family Practice, [facility] [address] [place] [address] Petra Land PA-C [address] [place] [address] 07/10/2024 11:30 AM EDT Office Visit Cardiology, [place] [address] [place] [address] Kaila Simental, CURLY [address] [place], [place] [phone] Health Maintenance Due Date Last Done Comments HIV Screening 1975 Hepatitis C Screening 01/25/1976 Colonoscopy 2003 Fecal Occult Blood Test 2003 Sigmoidoscopy 2003 Zoster Vaccines (1 of 2) 01/25/2008 COVID-19 Vaccine ( - 2022-24 season) 2022 DXA Scan 2023 Pneumococcal Vaccine: 65+ Years (1 of 1 - PCV) 2023 Mammogram 04/11/2023 04/11/2022, 10/15/2020 GFR 06/14/2024 06/15/2023, 04/0 04/2022, 03/14/2022, Additional history exists TSH 06/14/2024 06/15/2023, 04/0 04/2022, 03/14/2022, Additional history exists Depression Screening 06/18/2024 06/19/2023 Cologuard 07/06/2025 07/06/2022, 2 10/2022, 06/25/2022 Colorectal Cancer Screening 07/06/2025 Albumin/Creatinine Ratio 05/07/2026 024, 03/14/2022, 04/20/2021 Diabetes Screening 07/09/2026 07/10/2023, 0 06/15/2023, 05/30/2022, Additional history exists Lipid Panel 06/14/2028 06/15/2023, [...] Not on filedocumented as of this encounter Advance Directives Latest Code Status on File Code Status Date Activated Date Inactivated Comments Full Code 12/13/2022 2:27 PM 12/13/2022 8:22 PM Thi s order reflects the patients wishes and were consensually agreed upon. Question Answer Comments Discussion of Advance Directives occurred with: Not Discussed due to patient's condition Care Teams Bead Filler Relationship Specialty Start Date End Date Petra Land PA-C [address] [place] [address] PCP - General Physician Endoscopy Technican 05/30/22 documented as of this encounter
--- OUTSIDE RECORDS SUMMARY | 2023-07-15 09:53 | External Medical Summary ---
Author Name Unknown Address Unknown Organization [id number]:[facility] [place] [address] [place] [address] Laboratory Report Ordering Provider Test Date Status SHANDA MARY 07/10/2023 07:33:26 Final Observation Date Value Abnormality Reference (Units ) Status HbA1C 07/10/2023 07:33:26 5.9 Above high normal 4. 0-5.6 (%) Final The use of HbA1c to monitor glycemic status is based on normal hemoglobin and HbA composition. This test should not be used in patients with abnormal hemoglobin that affects the half life of the red blood cell or the in vivo glycation rates. Glucose, estimated average 07/10/2023 07:33:26 123 <126 (mg/dL) Final Performing Location [facility] [address] [facility] [address]
--- OUTSIDE RECORDS SUMMARY | 2023-07-15 09:53 | External Medical Summary | Summary of Care ---
Author Name Unknown Organization [facility] Address [address] [place] [address] Phone [phone] Care Team Providers Care Balance Staff Inspector Name Role Phone Petra De La Cruz PA-C Primary Care Provider Reason for Referral * Medication Prior Authorization - Closed Specialty Diagnoses / Procedures Referred By Contjean marie t Referred To Contact Diagnoses Nerve pain Petra De La Cruz PA-C [address] [place] [phone] Referral ID Status Reason Start Date Expiration Date Visits Re quested Visits Authorized [id number] Closed 999 184 Reason for Visit * Reason Comments NEW PATIENT Get established, rev iew recent lab results. . Encounter Details Date Type Department Care Team (Late st Contact Info) Description 06/19/2023 5:00 PM EDT Office Visit [facility] [address] [place] [address] Petra De La Cruz PA-C [address] [place] [id number] Dyslipidemia, goal LDL below 70*; Acquired hypothyroidism; HTN, goal below 150/90; Mixed stress and urge urinary incontinence; Postmenopausal status, age-related; Nerve pain; Risk and functional assessment; Recurrent UTI Allergies Active Allergy Reactions Criticality Noted Date Comments Sulfa Antibiotics Rash Low 08/04/2020 documented as of this encounter (statuses as of 06/19/2023) Medications Medication Sig Dispensed Refills Start Date End Date Status diphenhydrAMINE HCl 25 MG Oral Capsule Benadryl 0 Active Caltrate 600+D3 Soft 600-800 MG-UNIT Oral Tablet Chewable (Calcium Carb-Cholecalcifer ol) Take by mouth. Patient takes 2 daily. 0 Active Slow Fe 142 (45 Fe) MG Oral Tablet Extended Release (Ferrous Sulfate ER) Take by mouth 2 times a day. 0 Active Rosuvastatin Calcium 10 MG Oral Tablet (Crestor)Indicatio ns:Other hyperlipidemia TAKE 1 TABLET BY MOUTH IN THE MORNING 30 Tablet 5 3 Active oxyBUTYnin Chloride 5 MG Oral Tablet (Ditropan)Indicati ons:Overactive bladder due to prolapse of female genital organ TAKE ONE-HALF (1/2) TABLET IN THE MORNING, ONE-HALF (1/2) TABLET AT NOON AND ONE-HALF (1/2) TABLET BEFORE BEDTIME 135 Tablet 3 3 Active Estradiol 0.1 MG/GM Vaginal Cream (Estrace) Apply pea sized amount (0.5 gm) vaginally every other night. 42.5 g 3 3 Active cloNIDine HCl 0.1 MG Oral Tablet (Catapres) TAKE 1 TABLET BY MOUTH EVERY MORNING, 1 TABLET BY MOUTH AT NOON AND 1 TABLET BY MOUTH AT BEDTIME 270 Tablet 0 4 Active Synthroid 125 MCG Oral TabletIndications: Acquired hypothyroidism,Abn ormal stress echocardiogram TAKE 1 TABLET BY MOUTH IN THE MORNING AT LEAST 30 MINUTES PRIOR TO BREAKFAST OR OTHER MEDICATIONS 90 Tablet 0 4 Active Spironolactone 25 MG Oral Tablet (Aldactone) TAKE 1 TO 2 TABLETS ONCE DAILY 180 Tablet 1 4 Active Gabapentin 100 MG Oral Capsule (Neurontin)Indicat ions:Nerve pain TAKE 1 CAPSULE BY MOUTH ONCE DAILY NEEDED FOR PAIN 90 Capsule 0 4 Active Amoxicillin-Pot Clavulanate 875-125 MG Oral Tablet (Augmentin) Take 1 Tablet by mouth in the morning and 1 Tablet before bedtime. 0 024 Discontinued predniSONE 20 MG Oral Tablet (Deltasone)Indicat ions:Pain, dental Take 2 Tablets by mouth in the morning for 5 days. 10 Tablet 0 4 024 Discontinued oxyCODONE-Acetamin ophen 5-325 MG Oral Tablet (Percocet) Take 1 Tablet by mouth every 6 hours as needed for Pain, Mild. 0 4 024 Discontinued(Ri dication List Clean Up) Ciprofloxacin HCl 500 MG Oral Tablet (Cipro)Indications :Acute cystitis with hematuria Take 1 Tablet by mouth in the morning and 1 Tablet before bedtime. Do all this for 5 days. 10 Tablet 0 4 024 Discontinued Gabapentin 100 MG Oral Capsule (Neurontin)Indicat ions:Nerve pain TAKE 1 CAPSULE BY MOUTH ONCE DAILY NEEDED FOR PAIN 7 Capsule 0 4 024 Discontinued(Re fill) documented as of this encounter (statuses as of 06/19/2023) Active Problems Problem Noted Date Diagnosed Date [...] as of this encounter (statuses as of 06/19/2023) Immunizations Name Administration Dates Next Due PPD [...] Answer Date Recorded PHQ Adult Total Score 1 06/13/2022 Hunger Vital Sign Answer Date Recorded Within [...] on file documented as of this encounter Last Filed Vital Signs Vital Sign Reading Time Taken Comments Blood Pressure 120/80 06/19/2023 4:20 PM EDT Pulse 104 06/19/2023 4:20 PM EDT Temperature 37.1 C (98.7 F) 06/19/2023 4:20 PM ED T Respiratory Rate 20 06/19/2023 4:20 PM EDT Oxygen Saturation 96% 06/19/2023 4:20 PM EDT Inhaled Oxygen Concentration - - Weight 74.7 kg (164 lb 9.6 oz) 06/19/2023 4:20 P M EDT Height 162.6 cm (5' 4") 06/19/2023 4:20 PM EDT Body Mass Index 28.25 06/19/2023 4:20 PM EDT documented in this encounter Patient Instructions * Patient Instructions* Petra De La Cruz PA-C - 06/19/2023 4:17 PM EDT Please have your blood work performed prior to your next visit, fasting 10-12 hours, you can drink water and/or black coffee. Continue your medications as prescribed. Patient Instructions - Fall Prevention (This education is for all patients over 65 regardless of symptoms) Remember to take your current medications as prescribed. In order to prevent falls, you are encouraged to: Exercise Utilize assistive/adaptive devices Avoid multifocal lenses when walking Avoid hazards in home Maintain a regular toileting schedule Any questions please contact our office. Preventing Falls in the Home (This education is for all patients over 65 regardless of symptoms) As you get older, falls are more likely. Thats because your reaction time slows. Your muscles and joints may also get stiffer, making them less flexible. Illness, medications, and vision changes can also affect your balance. A fall could leave you unable to live on your own. To make your home safer, follow these tips: Floors Put nonskid pads under area rugs Remove throw rugs Replace worn floor coverings Tack carpets firmly to each step on carpeted stairs. Put nonskid strips on the edges of uncarpeted stairs Keep floors and stairs free of clutter and cords Arrange furniture so there are clear pathways Clean up any spills right away Bathrooms Install grab bars in the tub or shower Apply nonskid strips or put a nonskid rubber mat in the tub or shower Sit on a bath chair to bathe Use bathmats with nonskid backing Lighting Keep a flashlight in each room Put a nightlight along the pathway between the bedroom and the bathroom Pili Patient Education Copyright 2008 - 2010 [employer] except where otherwise noted Preventing Falls: Exercises to Improve Balance, Flexibility, Strength, and Staying Power (This education is for all patients over 65 regardless of symptoms) Certain types of exercises may help make you less likely to fall. Try the ones below. Or do other exercises that your healthcare provider suggests. Depending on your health, you may need to start slowly. Dont let that stop you. Even small amounts of exercise can help you. Be sure to talk to yourhealthcare provider before starting any exercise program. Improve Balance Many types of exercise can help improve balance. Shin chi and yoga are good examples. Heres another one to try. You can do it anytime and almost anywhere. Stand next to a counter or solid support. Push yourself up onto your tiptoes. Hold for 5 seconds. If you start to lose your balance, hold on to the counter. Rest and repeat 5 times. Work up to holding for 20 to 30 seconds, if you can. Increase Flexibility Being more flexible makes it easier for you to move around safely. Try exercises like the seated hamstring stretch. Sit in a chair and put one foot on a stool. Straighten your leg and reach with both hands down either side of your leg. Reach as far down your leg as you can. Hold for about 20 seconds. Go back to the starting position. Then repeat 5 times. Switch legs. Build Strength Resistance exercises help build strength. You can do them without equipment. Or you can use weights, elastic bands, or special machines. One such exercise is called the biceps curl. You can hold a 1 pound weight or even a can of soup. Do this exercise at least 3 times a week. Strive for everyday. Sit up straight in a chair. Keep your elbow close to your body and your wrist straight. Bend your arm, moving your hand up to your shoulder. Then slowly lower your arm. Repeat 5 times. Switch to the other arm. Build Your Staying Power Aerobic exercises make your heart and lungs stronger so you can keep moving longer. Walking and swimming are two of the best types of exercises you can do. Using a stationary bike is great, too. Find an aerobic exercise that you enjoy. Start slowly and build up. Even 5 minutes is helpful. Aimfor a goal of 30 minutes, at least 3 times a week. You dont have to do 30 minutes in one session. Break it up and walk a little throughout the day. More Helpful Tips Start easy. Slowly work up to doing more. Talk with your healthcare provider about the best exercises for you. Call senior centers or health clubs about exercise programs. If needed, have a family member watch you walk every so often to check your stability. Exercise with a friend. Choose an activity you both enjoy. Try exercises that you can do anytime, anywhere. Here are two examples. Have someone with you when you first try these: Practice walking by placing one foot right in front of the other. Stand up and sit down 10 times. Repeat this throughout the day. Pili Patient Education Copyright 2009 - 2010 Pili except where otherwise noted. Preventing Falls: Moving Safely Using a Cane or Walker (This education is for all patients over 65 regardless of symptoms) Keep the cane away from your feet so you dont trip. A walking aid, such as a cane or walker, can help you stay more independent and avoid falls. Remember to keep your walking aid within easy reach when youre in a chair or in bed. And learn how to use it safely so you dont injure yourself. Using a Cane If you have a stronger side, hold the cane on that side. Get your balance. Move the cane and your weaker leg forward. Support your weight on both the cane and your weaker side. Step with your stronger leg. Start again from step 1. If youre using a folding walker, be sure you know how to lock it open. Check that its locked open before each use. Using a Walker Roll the walker (or lift it, if youre using one without wheels) forward about 12 inches. Step forward with your weaker leg first. Use the walker to help keep your balance. Bring your other foot forward to the center of the walker. Start again from step 1. Helpful Tips Check with your healthcare provider about the right walking aid to use. Ask about a walker with a seat attached. Check the tips of your cane or walker to make sure they have nonskid covers. Move slowly from room to room. Dont garza. Sit down to get dressed. Use a robert pack or backpack to keep your hands free. Get help for jobs that mean climbing, even on a stepstool. Pili Patient Education Copyright 2008 - 2010 [employer] except where otherwise noted. Urinary Incontinence Plan of Care Documentation: (This education is for all patients over 65 regardless of symptoms) Current medications reconciled. Patient encouraged to: Practice kegal exercises Provide education materials Use the restroom every 2 hours throughout the day Limit caffeine, alcohol, spicy foods and acidic foods Keep a bladder diary Limit fluid intake 3-4 hours before bed Lose weight Prevent constipation Take fluid pills at a time when you can get to the bathroom quickly Control sugar better if diabetic Limit fluid intake to 60 oz. per day Wear support stockings (TEDs)if you have edema Adriana Skelton, MED ASSIST 06/19/2023 Kegel Exercises Kegel exercises dont require special clothing or equipment. Theyre easy to learn and simple to do. And if you do them right, no one can tell youre doing them, so they can be done almost anywhere. Your doctor, nurse, or physical therapist can answer any questions you have and help you get started. A Weak Pelvic Floor The pelvic floor muscles may weaken due to aging, and vaginal childbirth, injury, surgery, chronic cough, or lack of exercise. If the pelvic floor is weak, your bladder and other pelvic organs may sag out of place. The urethra may also open too easily and allow urine to leak out. Kegel exercises can help you strengthen your pelvic floor muscles so they can better support the pelvic organs and control urine flow. How Kegel Exercises Are Done Try each of the Kegel exercises described below. When youre doing them, try not to move your leg, buttock, or stomach muscles. While youre urinating, try to stop the flow of urine. Start and stop it as often as you can. Contract as if you were stopping your urine stream, but do it when youre not urinating. Tighten your rectum as if trying not to pass gas. Contract your anus, but dont move your buttocks. Helpful Hints Do your Kegels as often as you can. The more you do them, the faster youll feel the results. Pick an activity you do often as a reminder. For instance, do your Kegels every time you sit down. Tighten your pelvic floor before you sneeze, get up from a chair, cough, laugh, or lift. This protects your pelvic floor from injury and can help prevent urine leakage. Try to hold each Kegel for a slow count to five. You probably wont be able to hold them for thatlong at first, but keep practicing. It will get easier as your pelvic floor gets stronger. Eventually, special weights that you place in your vagina may be recommended to help make your Kegels even more effective. Pili Patient Education Copyright 2009 - 2010 Pili except where otherwise noted. Here are some helpful tips for your urinary incontinence: (This education is for all patients over 65 regardless of symptoms) Practice Kegel exercises Use the restroom every 2 hours throughout the day Limit caffeine, alcohol, spicy foods, and acidic foods Keep a bladder diary Limit fluid intake 3-4 hours before bed Lose weight Prevent constipation Take fluid pills at a time when can get to the bathroom quickly Control sugar better if diabetic Limit fluid intake to 60 oz. per day Any questions, please feel free to contact our office. documented in this encounter Progress Notes * Petra De La Cruz PA-C - 06/19/2023 4:19 PM EDT Chief Complaint Patient presents with NEW PATIENT Get established, review recent lab results. . Subjective: Paula Arzate is a 63 year old female HPI: Patient presents today for routine follow up. She is a new patient to me, was previously seeing Dr. Osorio. She has HTN and is currently on clonidine, spironolactone. She was also taking clonidine for hot flashes. She has urinary incontinence and is currently on ditropan and estrace. She follows bladder prolapse. She follows urogyn and has an scheduled appt 07/26/2023. 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 She has hypothyroidism and is currently on levothyroxine. She has HLD and is currently on crestor. She tolerates this well. She has a h/o positive cardiac stress test, cardiac catheterization was negative. She has a h/o needle stick injury from a flu shot. Area is still sore if she touches. She was givengabapentin due to the nerve pain. She reports it mostly bothers her in the winter time. She takes the gabapentin as needed. Patient has been verbally educated on the need or importance of Hepatitis C, HIV, and Immunizations: shingles, pneumonia and patient has declined topic(s). Past Medical History: Diagnosis Date Acquired hypothyroidism On synthroid OAB (overactive bladder) on oxybutynin Uterovaginal prolapse Medication list, PMH, Family history, social history, and problem list have been reviewed and updated in the Electronic Medical Record as noted below. Patient Active Problem List Diagnosis Code HTN, [...] initial abnormal smear Z01.42 Postoperative state Z98.890 Current Outpatient Medications Medication Sig Dispense Refill Caltrate 600+D3 Soft 600-800 MG-UNIT Oral Tablet Chewable (Calcium Carb- Cholecalciferol) Take by mouth. Patient takes 2 daily. Rosuvastatin Calcium 10 MG Oral Tablet (Crestor) TAKE 1 TABLET BY MOUTH IN THE MORNING 30 Tablet 5 oxyBUTYnin Chloride 5 MG Oral Tablet (Ditropan) TAKE ONE-HALF (1/2) TABLET IN THE MORNING, ONE-HALF(1/2) TABLET AT NOON AND ONE-HALF (1/2) TABLET BEFORE BEDTIME 135 Tablet 3 Estradiol 0.1 MG/GM Vaginal Cream (Estrace) Apply pea sized amount (0.5 gm) vaginally every other night. 42.5 g 3 cloNIDine HCl 0.1 MG Oral Tablet (Catapres) TAKE 1 TABLET BY MOUTH EVERY MORNING, 1 TABLET BY MOUTHAT NOON AND 1 TABLET BY MOUTH AT BEDTIME 270 Tablet 0 Synthroid 125 MCG Oral Tablet TAKE 1 TABLET BY MOUTH IN THE MORNING AT LEAST 30 MINUTES PRIOR TO BREAKFAST OR OTHER MEDICATIONS 90 Tablet 0 Spironolactone 25 MG Oral Tablet (Aldactone) TAKE 1 TO 2 TABLETS ONCE DAILY 180 Tablet 1 Gabapentin 100 MG Oral Capsule (Neurontin) TAKE 1 CAPSULE BY MOUTH ONCE DAILY NEEDED FOR PAIN 90Capsule 0 diphenhydrAMINE HCl 25 MG Oral Capsule Benadryl Slow Fe 142 (45 Fe) MG Oral Tablet Extended Release (Ferrous Sulfate ER) Take by mouth 2 times a day. (Patient not taking: Reported on 04/05/2023) No current facility-administered medications for this visit. Past Surgical History: Procedure Laterality Date BREAST BIOPSY CORONARY ANGIOGRAPHY W/LEFT HEART CATH Right 05/03/2021 CORONARY ANGIOGRAPHY W/LEFT HEART CATH performed by Robert Olson MD at [facility] – [place], [place] REMOVE CERVIX CONE W/LOOP ELECTRODE N/A 12/13/2022 LOOP ELECTROSURGERY EXCISION PROCEDURE performed by Alan Olsen MD at [facility] Review of patient's allergies indicates: Allergen Reactions Sulfa Antibiotics Rash Family History Problem Relation Age of Onset Other (RAMILA) Mother 40 Leukemia Mother 83 Heart attack Mother 60 - 69 GI problems Father diverticulitis GI problems Sister 40 diverticulitis, partial colectomy Breast Cancer Sister 58 no genetic testing Cancer Grandfather (Paternal) GI problems Niece diverticulitis GI problems Niece diverticulitis GI problems Niece diverticulitis Cancer Cousin (Paternal) colon vs pancreatic Other (RAMILA) Aunt (Maternal) 40s Other (RAMILA) Aunt (Maternal) 40s Other (RAMILA) Aunt (Maternal) 40s Family Status Relation Status Mo at age 83 Fa at age 40s d. suicide Sis Alive, age 62y MGMA at age 60s MGFA at age 70s PGMA at age 60s PGFA Son Alive, age 28y Niece Alive Niece Alive Niece Alive PCOUS at age 60s PCOUS Alive PCOUS Alive MAUNT MAUNT MAUNT PAUNT MUNC Other pat. aunts/uncles n=10 d. heart/stroke Other Alive Social History Tobacco Use Smoking status: Never Smokeless tobacco: Never Substance Use Topics Alcohol use: Yes Comment: occ Vaping/E-Cigarette Use Vaping/E-Cigarette Use Never User Vaping/E-Cigarette Substances Vaping/E-Cigarette Devices Review of Systems Constitutional: Negative for chills and fever. Respiratory: Negative for cough and shortness of breath. Cardiovascular: Negative for chest pain and palpitations. Gastrointestinal: Negative for abdominal pain, constipation and diarrhea. Skin: Negative for rash. Objective: BP 120/80 (BP Site: Left Arm, BP Position: Sitting, BP Cuff Size: Regular) | Pulse 104 | Temp 37.1 C (98.7 F) (Tympanic) | Resp 20 | Ht 1.626 m (5' 4") | Wt 74.7 kg (164 lb 9.6 oz) | SpO2 96% | BMI 28.25 kg/m | BSA 1.84 m Wt Readings from Last 4 Encounters: 06/19/23 74.7 kg (164 lb 9.6 oz) 04/14/23 74.1 kg (163 lb 6.4 oz) 04/05/23 74.4 kg (164 lb) 03/21/23 77.1 kg (170 lb) Physical Exam Constitutional: Appearance: Normal appearance. HENT: Right Ear: External ear normal. Left Ear: External ear normal. Eyes: Extraocular Movements: Extraocular movements intact. Conjunctiva/sclera: Conjunctivae normal. Pupils: Pupils are equal, round, and reactive to light. Neck: Vascular: No carotid bruit. Cardiovascular: Rate and Rhythm: Normal rate and regular rhythm. Heart sounds: Normal heart sounds. No murmur heard. Pulmonary: Effort: Pulmonary effort is normal. Breath sounds: Normal breath sounds. No wheezing. Neurological: General: No focal deficit present. Mental Status: She is alert and oriented to person, place, and time. Psychiatric: Mood and Affect: Mood normal. Behavior: Behavior normal. Results for orders placed or performed in visit on 06/15/23 LIPID PANEL WITH DIRECT LDL IF TG IS HIGH Result Value Ref Range Triglycerides 100 <=174 mg/dL Cholesterol 186 <200 mg/dL HDL Cholesterol 53 >49 mg/dL Non-HDL Cholesterol 133 <=159 mg/dL LDL Cholesterol 113 <=129 mg/dL COMPREHENSIVE METABOLIC PANEL Result Value Ref Range BUN 15 6 - 20 mg/dL Creatinine 0.8 0.5 - 1.0 mg/dL Estimated Glomerular Filtration Rate 88 >=60 mL/min Sodium 137 135 - 146 mmol/L Potassium 4.0 3.5 - 5.1 mmol/L Chloride 100 98 - 107 mmol/L CO2 27 22 - 32 mmol/L Anion Gap 10 7 - 15 mmol/L Glucose 107 70 - 120 mg/dL Albumin 4.5 3.8 - 5.0 g/dL AST 19 10 - 35 U/L Alkaline Phosphatase 56 35 - 130 U/L Bilirubin, Total 0.4 <=1.2 mg/dL Calcium 9.3 8.4 - 10.2 mg/dL Protein 6.9 6.0 - 8.3 g/dL ALT 24 10 - 35 U/L TSH WITH FREE T4 IF INDICATED Result Value Ref Range TSH 1.53 0.27 - 4.20 uIU/mL 25-HYDROXY VITAMIN D Result Value Ref Range 25-Hydroxy Vitamin D 39 >19 ng/mL CBC Result Value Ref Range WBC 6.31 4.00 - 10.80 K/uL RBC 4.17 3.85 - 5.15 M/uL HGB 13.1 12.0 - 15.3 g/dL HCT 40.1 36.0 - 45.2 % MCV 96.2 81.5 - 97.5 fL MCH 31.4 27.0 - 34.0 pg MCHC 32.7 32.0 - 36.0 g/dL RDW 12.3 11.5 - 15.5 % PLT 327 140 - 400 K/uL MPV 9.0 6.6 - 11.1 fL DIFFERENTIAL, AUTOMATED Result Value Ref Range WBC 6.31 4.00 - 10.80 K/uL Neutrophils % 54.4 40.0 - 75.0 % Lymphocytes % 29.3 18.0 - 42.0 % Monocytes % 12.2 (H) 1.0 - 11.0 % Eosinophils % 3.6 0.0 - 6.0 % Basophils % 0.5 0.0 - 2.0 % Absolute Neutrophils 3.43 1.80 - 7.70 K/uL Absolute Lymphocytes 1.85 1.00 - 4.80 K/ul Absolute Monocytes 0.77 0.00 - 1.10 K/uL Absolute Eosinophils 0.23 0.00 - 0.70 K/uL Absolute Basophils 0.03 0.00 - 0.20 K/uL ASSESSMENT/PLAN: Dyslipidemia, goal LDL below 70 (Primary) Discussed not at goal, she declines increasing medication - LIPID PANEL WITH DIRECT LDL IF TG IS HIGH; Future; Expected date: 05/18/2024 - ALBUMIN / CREATININE RATIO, URINE; Future; Expected date: 05/18/2024 - CBC WITH WBC DIFFERENTIAL; Future; Expected date: 05/18/2024 - COMPREHENSIVE METABOLIC PANEL; Future; Expected date: 05/18/2024 - TSH WITH FREE T4 IF INDICATED; Future; Expected date: 05/18/2024 - 25-HYDROXY VITAMIN D; Future; Expected date: 05/18/2024 Acquired hypothyroidism TSH at goal - LIPID PANEL WITH DIRECT LDL IF TG IS HIGH; Future; Expected date: 05/18/2024 - ALBUMIN / CREATININE RATIO, URINE; Future; Expected date: 05/18/2024 - CBC WITH WBC DIFFERENTIAL; Future; Expected date: 05/18/2024 - COMPREHENSIVE METABOLIC PANEL; Future; Expected date: 05/18/2024 - TSH WITH FREE T4 IF INDICATED; Future; Expected date: 05/18/2024 - 25-HYDROXY VITAMIN D; Future; Expected date: 05/18/2024 HTN, goal below 150/90 BP stable - LIPID PANEL WITH DIRECT LDL IF TG IS HIGH; Future; Expected date: 05/18/2024 - ALBUMIN / CREATININE RATIO, URINE; Future; Expected date: 05/18/2024 - CBC WITH WBC DIFFERENTIAL; Future; Expected date: 05/18/2024 - COMPREHENSIVE METABOLIC PANEL; Future; Expected date: 05/18/2024 - TSH WITH FREE T4 IF INDICATED; Future; Expected date: 05/18/2024 - 25-HYDROXY VITAMIN D; Future; Expected date: 05/18/2024 Mixed stress and urge urinary incontinence Postmenopausal status, age-related - DEXA SCAN/BONE MINERAL AXIAL - 25-HYDROXY VITAMIN D; Future; Expected date: 05/18/2024 Nerve pain - Gabapentin 100 MG Oral Capsule (Neurontin); TAKE 1 CAPSULE BY MOUTH ONCE DAILY NEEDED FOR PAIN Risk and functional assessment Follow Up: Return in about 1 year (around 06/18/2024) for routine follow up. | For: routine follow up Patient Instructions Please have your blood work performed prior to your next visit, fasting 10-12 hours, you can drink water and/or black coffee. Continue your medications as prescribed. Patient Instructions - Fall Prevention (This education is for all patients over 65 regardless of symptoms) Remember to take your current medications as prescribed. In order to prevent falls, you are encouraged to: Exercise Utilize assistive/adaptive devices Avoid multifocal lenses when walking Avoid hazards in home Maintain a regular toileting schedule Any questions please contact our office. Preventing Falls in the Home (This education is for all patients over 65 regardless of symptoms) As you get older, falls are more likely. Thats because your reaction time slows. Your muscles and joints may also get stiffer, making them less flexible. Illness, medications, and vision changes can also affect your balance. A fall could leave you unable to live on your own. To make your home safer, follow these tips: Floors Put nonskid pads under area rugs Remove throw rugs Replace worn floor coverings Tack carpets firmly to each step on carpeted stairs. Put nonskid strips on the edges of uncarpeted stairs Keep floors and stairs free of clutter and cords Arrange furniture so there are clear pathways Clean up any spills right away Bathrooms Install grab bars in the tub or shower Apply nonskid strips or put a nonskid rubber mat in the tub or shower Sit on a bath chair to bathe Use bathmats with nonskid backing Lighting Keep a flashlight in each room Put a nightlight along the pathway between the bedroom and the bathroom [employer]ili Patient Education Copyright 2008 - 2010 [employer] except where otherwise noted Preventing Falls: Exercises to Improve Balance, Flexibility, Strength, and Staying Power (This education is for all patients over 65 regardless of symptoms) Certain types of exercises may help make you less likely to fall. Try the ones below. Or do other exercises that your healthcare provider suggests. Depending on your health, you may need to start slowly. Dont let that stop you. Even small amounts of exercise can help you. Be sure to talk to yourhealthcare provider before starting any exercise program. Improve Balance Many types of exercise can help improve balance. Shin chi and yoga are good examples. Heres another one to try. You can do it anytime and almost anywhere. Stand next to a counter or solid support. Push yourself up onto your tiptoes. Hold for 5 seconds. If you start to lose your balance, hold on to the counter. Rest and repeat 5 times. Work up to holding for 20 to 30 seconds, if you can. Increase Flexibility Being more flexible makes it easier for you to move around safely. Try exercises like the seated hamstring stretch. Sit in a chair and put one foot on a stool. Straighten your leg and reach with both hands down either side of your leg. Reach as far down your leg as you can. Hold for about 20 seconds. Go back to the starting position. Then repeat 5 times. Switch legs. Build Strength Resistance exercises help build strength. You can do them without equipment. Or you can use weights, elastic bands, or special machines. One such exercise is called the biceps curl. You can hold a 1 pound weight or even a can of soup. Do this exercise at least 3 times a week. Strive for everyday. Sit up straight in a chair. Keep your elbow close to your body and your wrist straight. Bend your arm, moving your hand up to your shoulder. Then slowly lower your arm. Repeat 5 times. Switch to the other arm. Build Your Staying Power Aerobic exercises make your heart and lungs stronger so you can keep moving longer. Walking and swimming are two of the best types of exercises you can do. Using a stationary bike is great, too. Find an aerobic exercise that you enjoy. Start slowly and build up. Even 5 minutes is helpful. Aimfor a goal of 30 minutes, at least 3 times a week. You dont have to do 30 minutes in one session. Break it up and walk a little throughout the day. More Helpful Tips Start easy. Slowly work up to doing more. Talk with your healthcare provider about the best exercises for you. Call senior centers or health clubs about exercise programs. If needed, have a family member watch you walk every so often to check your stability. Exercise with a friend. Choose an activity you both enjoy. Try exercises that you can do anytime, anywhere. Here are two examples. Have someone with you when you first try these: Practice walking by placing one foot right in front of the other. Stand up and sit down 10 times. Repeat this throughout the day. [employer] Patient Education Copyright 2008 - 2010 [employer] except where otherwise noted. Preventing Falls: Moving Safely Using a Cane or Walker (This education is for all patients over 65 regardless of symptoms) Keep the cane away from your feet so you dont trip. A walking aid, such as a cane or walker, can help you stay more independent and avoid falls. Remember to keep your walking aid within easy reach when youre in a chair or in bed. And learn how to use it safely so you dont injure yourself. Using a Cane If you have a stronger side, hold the cane on that side. Get your balance. Move the cane and your weaker leg forward. Support your weight on both the cane and your weaker side. Step with your stronger leg. Start again from step 1. If youre using a folding walker, be sure you know how to lock it open. Check that its locked open before each use. Using a Walker Roll the walker (or lift it, if youre using one without wheels) forward about 12 inches. Step forward with your weaker leg first. Use the walker to help keep your balance. Bring your other foot forward to the center of the walker. Start again from step 1. Helpful Tips Check with your healthcare provider about the right walking aid to use. Ask about a walker with a seat attached. Check the tips of your cane or walker to make sure they have nonskid covers. Move slowly from room to room. Dont garza. Sit down to get dressed. Use a robert pack or backpack to keep your hands free. Get help for jobs that mean climbing, even on a stepstool. [employer] Patient Education Copyright 2008 - 2010 [employer] except where otherwise noted. Urinary Incontinence Plan of Care Documentation: (This education is for all patients over 65 regardless of symptoms) Current medications reconciled. Patient encouraged to: Practice kegal exercises Provide education materials Use the restroom every 2 hours throughout the day Limit caffeine, alcohol, spicy foods and acidic foods Keep a bladder diary Limit fluid intake 3-4 hours before bed Lose weight Prevent constipation Take fluid pills at a time when you can get to the bathroom quickly Control sugar better if diabetic Limit fluid intake to 60 oz. per day Wear support stockings (TEDs)if you have edema Adriana Skelton, MED ASSIST 06/19/2023 Kegel Exercises Kegel exercises dont require special clothing or equipment. Theyre easy to learn and simple to do. And if you do them right, no one can tell youre doing them, so they can be done almost anywhere. Your doctor, nurse, or physical therapist can answer any questions you have and help you get started. A Weak Pelvic Floor The pelvic floor muscles may weaken due to aging, and vaginal childbirth, injury, surgery, chronic cough, or lack of exercise. If the pelvic floor is weak, your bladder and other pelvic organs may sag out of place. The urethra may also open too easily and allow urine to leak out. Kegel exercises can help you strengthen your pelvic floor muscles so they can better support the pelvic organs and control urine flow. How Kegel Exercises Are Done Try each of the Kegel exercises described below. When youre doing them, try not to move your leg, buttock, or stomach muscles. While youre urinating, try to stop the flow of urine. Start and stop it as often as you can. Contract as if you were stopping your urine stream, but do it when youre not urinating. Tighten your rectum as if trying not to pass gas. Contract your anus, but dont move your buttocks. Helpful Hints Do your Kegels as often as you can. The more you do them, the faster youll feel the results. Pick an activity you do often as a reminder. For instance, do your Kegels every time you sit down. Tighten your pelvic floor before you sneeze, get up from a chair, cough, laugh, or lift. This protects your pelvic floor from injury and can help prevent urine leakage. Try to hold each Kegel for a slow count to five. You probably wont be able to hold them for thatlong at first, but keep practicing. It will get easier as your pelvic floor gets stronger. Eventually, special weights that you place in your vagina may be recommended to help make your Kegels even more effective. [employer] Patient Education Copyright 2009 - 2011 [employer] except where otherwise noted. Here are some helpful tips for your urinary incontinence: (This education is for all patients over 65 regardless of symptoms) Practice Kegel exercises Use the restroom every 2 hours throughout the day Limit caffeine, alcohol, spicy foods, and acidic foods Keep a bladder diary Limit fluid intake 3-4 hours before bed Lose weight Prevent constipation Take fluid pills at a time when can get to the bathroom quickly Control sugar better if diabetic Limit fluid intake to 60 oz. per day Any questions, please feel free to contact our office. Petra De La Cruz PA-C 06/19/23 documented in this encounter Nursing Notes * Adriana Skelton MED ASSIST - 06/19/2023 4:23 PM EDT Patient presents today for a new patient - get established visit. Patient has been verbally educated on the need or importance of Immunizations: shingles and pneu vaccines, KIMBERLEY Pitt documented in this encounter Plan of Treatment Upcoming Encounters Date Type Department Care Team (Late st Contact Info) Description 06/23/2023 2:00 PM EDT [facility] [address] [place] [address] Kaila Simental CRNP [address] [place] [address] 07/26/2023 8:00 AM EDT Telemedicine Urogynecology [facility] [address] [facility] [place] [address] Jeffery Hamlin MD [address] [place] [address] 07/31/2023 10:15 AM EDT Appointment Radiology, [facility] [address] [place] [address] 07/31/2023 1:00 PM EDT Appointment Radiology, [facility] [address] [place] [address] 08/23/2023 3:10 PM EDT Office Visit Urogynecology [facility] [address] [place] [address] Jeffery Hamlin MD [address] [place] [address] 06/24/2024 5:00 PM EDT Office Visit [facility] [address] [place] [address] Petra De La Cruz PA-C [address] [place] [address] Scheduled Orders Name Type Priority Associated Diagnoses Orde r Schedule DEXA SCAN/BONE MINERAL AXIAL Medical Imaging Routine Postmenopausal status, age-related Ordered: 06/19/2023 LIPID PANEL WITH DIRECT LDL IF TG IS HIGH Lab Routine Dyslipidemia, goal LDL below 70 Acquired hypothyroidism HTN, goal below 150/90 Expected: 05/18/2024 (Approximate), Expires: 07/18/2024 ALBUMIN / CREATININE RATIO, URINE Lab Routine Dyslipidemia, goal LDL below 70 Acquired hypothyroidism HTN, goal below 150/90 Expected: 05/18/2024 (Approximate), Expires: 07/18/2024 CBC WITH WBC DIFFERENTIAL Lab Routine Dyslipidemia, goal LDL below 70 Acquired hypothyroidism HTN, goal below 150/90 Expected: 05/18/2024 (Approximate), Expires: 07/18/2024 COMPREHENSIVE METABOLIC PANEL Lab Routine Dyslipidemia, goal LDL below 70 Acquired hypothyroidism HTN, goal below 150/90 Expected: 05/18/2024 (Approximate), Expires: 07/18/2024 TSH WITH FREE T4 IF INDICATED Lab Routine Dyslipidemia, goal LDL below 70 Acquired hypothyroidism HTN, goal below 150/90 Expected: 05/18/2024 (Approximate), Expires: 07/18/2024 25-HYDROXY VITAMIN D Lab Routine Dyslipidemia, goal LDL below 70 Acquired hypothyroidism HTN, goal below 150/90 Postmenopausal status, age-related Expected: 05/18/2024 (Approximate), Expires: 07/18/2024 URINALYSIS, REFLEX TO CULTURE (NOT FOR NEUTROPENIC PATIENTS) Lab Routine Recurrent UTI Expected: 06/19/2023, Expires: 06/18/2024 Health Maintenance Due Date Last Done Comments HIV Screening 1975 Hepatitis C Screening 01/25/1976 Colonoscopy 2003 Fecal Occult Blood Test 2003 Sigmoidoscopy 2003 Zoster Vaccines (1 of 2) 01/25/2008 COVID-19 Vaccine (1 - 2022-24 season) 2022 DXA Scan 2023 [...] as of this encounter Visit Diagnoses Diagnosis Dyslipidemia, goal LDL below 70- Primary Other and unspecified hyperlipidemia Acquired hypothyroidism Unspecified hypothyroidism HTN, goal below 150/90 Mixed stress and urge urinary incontinence Mixed incontinence urge and stress (male)(female) Postmenopausal status, age-related Asymptomatic postmenopausal status (age-related) (natural) Nerve pain Neuralgia, neuritis, and radiculitis, unspecified Risk and functional assessment Screening for unspecified condition Recurrent UTI Urinary tract infection, site not specified documented in this encounter Advance Directives Latest Code Status on File Code Status Date Activated Date Inactivated Comments Full Code 12/13/2022 2:27 PM 12/13/2022 8:22 PM Thi s order reflects the patients wishes and were consensually agreed upon. Question Answer Comments Discussion of Advance Directives occurred with: Not Discussed due to patient's condition Care Teams Balance Staff Inspector Relationship Specialty Start Date End Date Petra De La Cruz PA-C [address] [place] [address] PCP - General Physician Cardiology Clinical Nurse Specialist 05/30/22 documented as of this encounter
--- OUTSIDE RECORDS SUMMARY | 2023-07-15 09:53 | External Medical Summary | Summary of Care ---
Author Name Unknown Organization [facility] Address [address] [place] [address] Phone [phone] Care Team Providers Care Psychology Professor Name Role Phone Petra De La Cruz PA-C Primary Care Provider Encounter Details Date Type Department Care Team (Late st Contact Info) Description 06/26/2023 Orders Only PATIENT PORTAL DO NOT DELETE THIS DEPT USED BY [place] [id number] Allergies Active Allergy Reactions Criticality Noted Date Comments Sulfa Antibiotics Rash Low 08/04/2020 documented as of this encounter (statuses as of 06/26/2023) Medications Medication Sig Dispensed Refills Start Date [...] as of this encounter (statuses as of 06/26/2023) Active Problems Problem Noted Date Diagnosed Date [...] as of this encounter (statuses as of 06/26/2023) Immunizations Name Administration Dates Next Due PPD [...] 1:15 PM EDT Cardiac Studies Cardiac Studies [address] [place] [address] 07/26/2023 8:00 AM EDT Telemedicine [facility]cology [facility] [place] [address] Jeffery Hamlin MD [address] [place] [address] 07/31/2023 10:15 AM EDT Appointment Radiology, [facility] [address] [facility] [address] 07/31/2023 1:00 PM EDT Appointment Radiology, [address] [id number] 08/23/2023 3:10 PM EDT [facility] [address] [place] [address] Jeffery Hamlin MD [address] [place] [address] 06/24/2024 5:00 PM EDT [facility] [address] [place] [address] Petra De La Cruz PA-C [address] [place] [address] 07/10/2024 11:30 AM EDT Office Visit Cardiology, [place] [address] [place] [address] Kaila Simental, CURLY [address] [place], [place] [id number] Health Maintenance Due Date Last Done Comments HIV Screening 1975 Hepatitis C Screening 01/25/1976 Colonoscopy 2003 Fecal Occult Blood Test 2003 Sigmoidoscopy 2003 Zoster Vaccines (1 of 2) 01/25/2008 COVID-19 Vaccine (1 - 2022- season) 2022 DXA Scan 2023 [...] Discussed due to patient's condition Care Teams Psychology Professor Relationship Specialty Start Date End Date Petra De La Cruz PA-C [facility] [place] [address] PCP - General Physician Travel Registered Nurse Pacu 05/30/22 documented as of this encounter
--- OUTSIDE RECORDS SUMMARY | 2023-07-15 09:53 | External Medical Summary ---
Author Name Unknown Address Unknown Organization K1G:LABORATORY [facility] - [address] [facility] [id number] Laboratory Report Ordering Provider Test Date Status SHANDA MARY 07/10/2023 07:33:50 Final Observation Date Value Abnormality Reference (Units ) Status Color of Urine by Auto 07/10/2023 07:33:50 Yellow Light Yellow, Yellow, Dark Yellow Final Clarity, Urine 07/10/2023 07:33:50 Clear Clear Final Glucose [Mass/volume] in Urine by Automated test strip 07/10/2023 07:33:50 Negative Negative (mg/dL) Final Bilirubin.total [Presence] in Urine by Automated test strip 07/10/2023 07:33:50 Negative Negative Final Ketones [Mass/volume] in Urine by Automated test strip 07/10/2023 07:33:50 Negative Negative (mg/dL) Final Specific gravity, Urine 07/10/2023 07:33:50 1.010 1.003-1.030 Final Hemoglobin [Presence] in Urine by Automated test strip 07/10/2023 07:33:50 Trace Abnormal Negative Final pH, Urine 07/10/2023 07:33:50 7.0 5.0-7.5 (Units) Final Protein [Mass/volume] in Urine by Automated test strip 07/10/2023 07:33:50 Negative Negative (mg/dL) Final Urobilinogen [Mass/volume] in Urine by Automated test strip 07/10/2023 07:33:50 0.2 0.2, 1.0 (mg/dL) Final Nitrite [Presence] in Urine by Automated test strip 07/10/2023 07:33:50 Negative Negative Final Leukocyte esterase [Presence] in Urine by Automated test strip 07/10/2023 07:33:50 Large Abnormal Negative Final RBC, Urine 07/10/2023 07:33:50 3-5 Abnormal 0-2 (/HPF) Final WBC, Urine 07/10/2023 07:33:50 10-19 Abnormal 0-2 (/HPF) Final Bacteria [#/area] in Urine sediment by Microscopy high power field 07/10/2023 07:33:50 0-25 0-25 (/HPF) Final Epithelial cells.squamous [#/area] in Urine sediment by Microscopy high power field 07/10/2023 07:33:50 Many Abnormal None (/HPF) Final Leukocyte clumps [#/area] in Urine sediment by Microscopy high power field 07/10/2023 07:33:50 Present Abnormal None (/HPF) Final CULTURE, URINE - [facility] 07/10/2023 07:33:50 Final Quantitative urine culture t o be performed Performing Location LABORATORY [facility] - [address] [facility] [id number]
--- OUTSIDE RECORDS SUMMARY | 2023-07-15 09:53 | External Medical Summary | Summary of Care ---
Author Name Unknown Organization [facility] Address [address] [place] [address] Phone [phone] Care Team Providers Care Plastics Spreading Machine Operator Name Role Phone Petra De La Cruz PA-C Primary Care Provider Reason for Visit * Reason Comments eRx-Medication Refill Encounter Details Date Type Department Care Team (Late st Contact Info) Description 06/18/2023 Refill Family [facility] [address] [place] [address] Petra De La Cruz PA-C [address] [place], [place] [phone] Nerve pain Allergies Active Allergy Reactions Criticality Noted Date [...] THE MORNING 30 Tablet 5 09/19/2022 Active Additional Information Patient not taking.Reported on 04/05/2023 oxyBUTYnin Chloride 5 MG Oral Tablet (Ditropan)Indication s:Overactive bladder due to prolapse of female genital organ TAKE ONE-HALF (1/2) TABLET IN THE MORNING, ONE-HALF (1/2) TABLET AT NOON AND ONE-HALF (1/2) TABLET BEFORE BEDTIME 135 Tablet 3 12/19/2022 Active Estradiol 0.1 MG/GM Vaginal Cream (Estrace) Apply pea sized amount (0.5 gm) vaginally every other night. 42.5 g 3 01/11/2023 Active Amoxicillin-Pot Clavulanate 875-125 MG Oral Tablet (Augmentin) Take 1 Tablet by mouth in the morning and 1 Tablet before bedtime. 0 Active oxyCODONE-Acetaminop hen 5-325 MG Oral Tablet (Percocet) Take 1 Tablet by mouth every 6 hours as needed for Pain, Mild. 0 03/23/2023 Active cloNIDine HCl 0.1 MG Oral Tablet (Catapres) TAKE 1 TABLET BY MOUTH EVERY MORNING, 1 TABLET BY MOUTH AT NOON AND 1 TABLET BY MOUTH AT BEDTIME 270 Tablet 0 04/14/2023 Active Synthroid 125 MCG Oral TabletIndications:Ac quired hypothyroidism,Abnor [...] DAILY NEEDED FOR PAIN 7 Capsule 0 06/13/2023 Active documented as of this encounter (statuses [...] Name Administration Dates Next Due PPD 01/28/2023, 2,12/21/2021,07/29/19,06/12/2020 Seasonal Influenza, PF, 6 M & above, [...] encounter Miscellaneous Notes * Telephone Encounter - Ena Mcmahon - 06/19/2023 5:30 AM EDTRefused Prescriptions: Disp Refills Gabapentin 100 MG Oral Capsule (Neurontin) 7 Caps*0 Sig: TAKE 1CAPSULE BY MOUTH ONCE DAILY NEEDED FOR PAINRefused By: Abdi MCMAHONon for Refusal: Duplicate Request documented in this encounter Plan of Treatment Upcoming Encounters Date Type Department Care Team (Late st Contact Info) Description 06/19/2023 5:00 PM EDT Office Visit Family [facility] [address] [place] [address] Petra De La Cruz PA-C [address] [place] [address] 06/23/2023 2:00 PM EDT Office Visit Cardiology, [place] [address] [place] [address] Kaila Simental, CURLY [address] [facility] [place] [id number] 07/26/2023 8:00 AM EDT Telemedicine Urogynecology [facility] [address] [facility] [place] [address] Jeffery Hamlin MD [address] [facility] [place] [address] 07/31/2023 10:15 AM EDT Appointment Radiology, [facility] [address] [place] [address] 08/23/2023 3:10 PM EDT Office Visit Urogynecology [facility] [address] [facility] [place] [address] Jeffery Hamlin MD [address] [place] [address] Health Maintenance Due Date Last Done Comments HIV Screening 1975 Hepatitis C Screening 01/25/1976 Colonoscopy 2003 Fecal Occult Blood Test 2003 Sigmoidoscopy 2003 Zoster Vaccines (1 of 2) 01/25/2008 COVID-19 Vaccine (1 - 2022-24 season) 2022 DXA Scan 2023 Pneumococcal Vaccine: 65+ Years (1 of 1 - PCV) 2023 Mammogram 04/11/2023 04/11/2022, 10/15/2020 Depression Screening 06/14/2023 06/13/2022 GFR 06/14/2024 06/15/2023, 04/0 04/2022, 03/14/2022, Additional history exists TSH 06/14/2024 06/15/2023, 04/0 04/2022, 03/14/2022, Additional history exists Cologuard 07/06/2025 07/06/2022, 042 10/2022, 06/25/2022 Colorectal Cancer Screening 07/06/2025 Albumin/Creatinine [...] as of this encounter Visit Diagnoses Diagnosis Nerve pain Neuralgia, neuritis, and radiculitis, unspecified documented in this encounter Advance Directives Latest Code Status on File Code Status Date Activated Date Inactivated Comments Full Code 12/13/2022 2:27 PM 12/13/2022 8:22 PM Thi s order reflects the patients wishes and were consensually agreed upon. Question Answer Comments Discussion of Advance Directives occurred with: Not Discussed due to patient's condition Care Teams Plastics Spreading Machine Operator Relationship Specialty Start Date End Date Petra De La Cruz PA-C [facility] [place] [address] PCP - General Physician Tour Driver 05/30/22 documented as of this encounter
--- OUTSIDE RECORDS SUMMARY | 2023-07-15 09:53 | External Medical Summary | Summary of Care ---
Author Name Unknown Organization [facility] Address [address] [place] [address] Phone [phone] Care Team Providers Care Employee Communications Intern Name Role Phone Petra De La Cruz PA-C Primary Care Provider Reason for Visit * Reason Comments Outpatient Testing Encounter Details Date Type Department Care Team (Late st Contact Info) Description 07/10/2023 7:40 AM EDT Laboratory Laboratory, [place] [id number] [place] [address] [facility], Lab [address] [place] [phone] Overweight (BMI 25.0-29.9); Recurrent UTI Allergies [...] 1:15 PM EDT Cardiac Studies Cardiac Studies [facility] [address] [facility] [place] [address] 07/26/2023 8:00 AM EDT Telemedicine Urogynecology [facility] [address] [place] [address] Jeffery Hamlin MD [address] [place] [address] 07/31/2023 10:15 AM EDT Appointment Radiology, [facility] [address] [place] [address] 07/31/2023 1:00 PM EDT Appointment Radiology, [facility] [address] [place] [address] 08/23/2023 3:10 PM EDT Office Visit Urogynecology [facility] [address] [facility] [place] [address] Jeffery Hamlin MD [address] [place] [address] 06/24/2024 5:00 PM EDT Office Visit Family Practice, [facility] [address] [place] [address] Petra De La Cruz PA-C [address] [place] [address] 07/10/2024 11:30 AM EDT Office Visit Cardiology, [place] [address] [place] [address] Kaila Simental, CURLY [address] [place] [address] Scheduled Orders Name Type Priority [...] Discussed due to patient's condition Care Teams Employee Communications Intern Relationship Specialty Start Date End Date Petra De La Cruz PA-C [facility] [place] [address] PCP - General Physician Channel Sales Director 05/30/22 documented as of this encounter
--- OUTSIDE RECORDS SUMMARY | 2023-07-15 09:53 | External Medical Summary | Summary of Care ---
Author Name Unknown Organization [facility] Address [address] [place] [address] Phone [phone] Care Team Providers Care Television Picture Tube Rebuilder Name Role Phone Petra De La Cruz PA-C Primary Care Provider Reason for Referral * Precert (Within 10 days (routine)) - Pending Review Specialty Diagnoses / Procedures Referred By Contjean marie t Referred To Contact Cardiac Studies Diagnoses Aortic valve insufficiency, etiology of cardiac valve disease unspecified Procedures ECHO, COMPLETE (2D), TRANS-THORACIC Kaila Simental CRNP [address] [place] [address] Referral ID Status Reason Start Date Expiration Date Visits Requested Visits Authorized [id number] Pending Review Precert 06/23/2023 999 999 Reason for Visit * Reason Comments Follow Up Encounter Details Date Type Department Care Team (Late st Contact Info) Description 06/23/2023 2:00 PM EDT Office Visit [facility] [address] [place] [address] Kaila Simentla CRNP [address] [place] [address] Aortic valve insufficiency, etiology of cardiac valve disease unspecified*; Lower extremity edema; Dyslipidemia, goal LDL below 130 Allergies Active Allergy Reactions Criticality Noted Date Comments Sulfa Antibiotics Rash Low 08/04/2020 documented as of this encounter (statuses as of 06/23/2023) Medications Medication Sig Dispensed Refills Start Date [...] as of this encounter (statuses as of 06/23/2023) Active Problems Problem Noted Date Diagnosed Date [...] as of this encounter (statuses as of 06/23/2023) Immunizations Name Administration Dates Next Due PPD 01/28/2023,,12/21/2021,2021,06/12/2020 Seasonal Influenza Virus Vac cine, Unspecified Formulation [...] Sign Reading Time Taken Comments Blood Pressure 124/64 06/23/2023 1:41 PM EDT Pulse 76 06/23/2023 1:41 PM EDT Temperature - - Respiratory Rate - - Oxygen Saturation 98% 06/23/2023 1:41 PM EDT Inhaled Oxygen Concentration - - Weight 74.8 kg (165 lb) 06/23/2023 1:41 PM EDT Height - - Body Mass Index 28.32 06/19/2023 4:20 PM EDT documented in this encounter Progress Notes * Luisito Mercado, CURLY Chew - 06/23/2023 2:00 PM EDT Paula Arzate is a 63 year old female referred by Petra De La Cruz PA-C for evaluation of pre-surgical cardiac risk stratification . She presents to today's clinic visit alone. Pertinent Past Medical History: Angiographically normal coronaries by cardiac cath (2021) Acquired Hypothyroidism on Synthroid OAB Uterovaginal prolapse HPI: Paula Arzate is a 63-year-old female with significant past medical history as listed above. Presents today for pre-surgical cardiac risk stratification. Referred for the following reason: "Pt is having surgery with Dr Hamlin at [facility] on 07/23 for a Robotic assisted supracervical hysterectomyand sacral colpopexy. Dr Hamlin would like pt to have a cardiac clearance. Please contact pt with an appt. Thanks" In speaking with Ms. Arzate today, Endorses history of 11 UTI's over the course of the past year, thought to be secondary to retrograde flow of urine in setting of uterovaginal prolapse, prompting above planned surgery. 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 No formal exercise. Walking up and down the stairs briskly at work, without chest pain or dyspnea. Denies chest pain, pressure, tightness, and/or discomfort. Denies dyspnea with exertion or at rest. Sleeping in bed at night, without pillow most nights. Denies Orthopnea, PND, and/or cough when lying flat. No notable edema, provided she is taking her Spironolactone. Denies abdominal bloating and/or sensation of early satiety. Appetite has been good. On and off palpitations, that are not significantly concerning to her or limiting her. Denies lightheadedness, pre-syncope, and/or syncopal events. Risk factors for CAD (-) Diabetes mellitus (+) HTN (+) Dyslipidemia (-) Sleep apnea. (-) Renal disease (-) Vascular disease (+) Family history of CAD (male relative < 55 year old or female relative < 65 year old with history of angina, acute [place], CABG, PCI, or SCD). Mother with history of heart attack in her 60's (-) Smokes. (rare) Drinks. (-) Recreational Drugs. (-) Stroke Pertinent Imaging/Studies: 04/2021 Cardiac Catheterization: The coronary arteries are angiographically normal. 04/19/2021 Stress Echo: nterpretation Summary The examination is adequate to evaluate the referral indication. The stress echo is positive for inducible ischemia. Findings consistent with RCA/LCx territory ischemia. Resting study: The qualitative LV ejection fraction is 55-59% (normal). The LV wall thickness is mildly increased (concentric). No resting LV segmental wall motion abnormalities. The aortic valve is congenitally bicuspid. Mild aortic valve regurgitation is present. This study has what is deemed to be a "significant abnormality" consistent with ACT 112. See additional documentation regarding notification of patient and ordering provider. Labs Reviewed: Latest Reference Range & Units 06/15/23 08:43 Triglycerides <=174 mg/dL 100 Cholesterol <200 mg/dL 186 Non-HDL Cholesterol <=159 mg/dL 133 HDL Cholesterol >49 mg/dL 53 LDL Cholesterol <=129 mg/dL 113 Sodium 135 - 146 mmol/L 137 Potassium 3.5 - 5.1 mmol/L 4.0 Chloride 98 - 107 mmol/L 100 CO2 22 - 32 mmol/L 27 BUN 6 - 20 mg/dL 15 Creatinine 0.5 - 1.0 mg/dL 0.8 Estimated Glomerular Filtration Rate >=60 mL/min 88 Anion Gap 7 - 15 mmol/L 10 Glucose 70 - 120 mg/dL 107 Calcium 8.4 - 10.2 mg/dL 9.3 Protein 6.0 - 8.3 g/dL 6.9 25-Hydroxy Vitamin D >19 ng/mL 39 25-HYDROXY VITAMIN D Rpt TSH 0.27 - 4.20 uIU/mL 1.53 TSH WITH FREE T4 IF INDICATED Rpt CBC Rpt WBC 4.00 - 10.80 K/uL 6.31 RBC 3.85 - 5.15 M/uL 4.17 HGB 12.0 - 15.3 g/dL 13.1 HCT 36.0 - 45.2 % 40.1 MCV 81.5 - 97.5 fL 96.2 MCH 27.0 - 34.0 pg 31.4 MCHC 32.0 - 36.0 g/dL 32.7 RDW 11.5 - 15.5 % 12.3 PLT 140 - 400 K/uL 327 MPV 6.6 - 11.1 fL 9.0 CBC WITH WBC DIFFERENTIAL Rpt ! Absolute Neutrophils 1.80 - 7.70 K/uL 3.43 Absolute Lymphocytes 1.00 - 4.80 K/ul 1.85 Absolute Monocytes 0.00 - 1.10 K/uL 0.77 Absolute Eosinophils 0.00 - 0.70 K/uL 0.23 Absolute Basophils 0.00 - 0.20 K/uL 0.03 Albumin 3.8 - 5.0 g/dL 4.5 AST 10 - 35 U/L 19 ALT 10 - 35 U/L 24 Alkaline Phosphatase 35 - 130 U/L 56 Bilirubin, Total <=1.2 mg/dL 0.4 Current Outpatient Medications Medication Sig Dispense Refill diphenhydrAMINE HCl 25 MG Oral Capsule Benadryl Caltrate 600+D3 Soft 600-800 MG-UNIT Oral Tablet Chewable (Calcium Carb- Cholecalciferol) Take by mouth. Patient takes 2 daily. Slow Fe 142 (45 Fe) MG Oral Tablet Extended Release (Ferrous Sulfate ER) Take by mouth 2 times a day. (Patient not taking: Reported on 04/05/2023) Rosuvastatin Calcium 10 MG Oral Tablet (Crestor) [...] ONCE DAILY NEEDED FOR PAIN 90Capsule 0 No current facility-administered medications for this visit. Review of patient's allergies indicates: Allergen Reactions Sulfa Antibiotics Rash Past Surgical History: Procedure Laterality Date BREAST BIOPSY CORONARY ANGIOGRAPHY W/LEFT HEART CATH Right 05/03/2021 CORONARY ANGIOGRAPHY W/LEFT HEART CATH performed by Robert Olson MD at [facility] – [place] REMOVE CERVIX CONE W/LOOP ELECTRODE N/A 12/13/2022 LOOP ELECTROSURGERY EXCISION PROCEDURE performed by Alan Olsen MD at OR [facility] Family History Problem Relation Age of Onset [...] (Maternal) 40s Other (RAMILA) Aunt (Maternal) 40s Social History Tobacco Use Smoking status: Never Smokeless tobacco: Never Vaping Use Vaping Use: Never used Substance Use Topics Alcohol use: Yes Comment: occ Drug use: Not Currently Wt Readings from Last 4 Encounters: 06/19/23 74.7 kg (164 lb 9.6 oz) 04/14/23 74.1 kg (163 lb 6.4 oz) 04/05/23 74.4 kg (164 lb) 03/21/23 77.1 kg (170 lb) Review of Systems: All other systems reviewed and negative aside from those mentioned above in HPI Physical exam: Today's Vital signs: BP 124/64 (BP Site: Right Arm, BP Position: Sitting, BP Cuff Size: Regular) | Pulse 76 | Wt 74.8 kg (165 lb) | SpO2 98% | BMI 28.32 kg/m | BSA 1.84 m General: Alert and pleasant woman in no acute distress. HEENT: Unremarkable. No eyelid Xanthoma, conjunctiva normal. Neck: No adenopathy, No thyromegaly, NO JVD Neuro: Alert and oriented X 3, No facial droop noted, tube dispatcher equal and strong Pulmonary: Clear to auscultation, No wheezing, no dyspnea noted Cardiac: Regular rate and rhythm, No murmur, normal S1 and S2, No S3, No S4, No rub, Carotid Right +2----Left +2----No bruit bilaterally Radial Right +2----Left +2 DP Right +2----Left +2 PT Right +2----Left +2 Abdomen: Soft, not distended, non tender, No hepatomegaly palpitated, NO abdominal bruits heard Musculoskeletal: Unremarkable. Gait is steady without assitance Extremities: no edema, no cyanosis noted Skin: Warm dry and intact, Unremarkable Impression and Plan: Paula Arzate is a 63-year-old female with significant past medical history as listed above. Presents today for pre-surgical cardiac risk stratification prior to undergoing planned robotic assisted supracervical hysterectomy and sacral colpopexy on 07/14/2023 at [facility]. Angiographically normal coronaries by cardiac cath (2021) Acquired Hypothyroidism on Synthroid OAB Uterovaginal prolapse Note: Endorses history of 11 UTI's over the course of the past year, thought to be secondary to retrograde flow of urine in setting of uterovaginal prolapse, prompting above planned surgery. 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 No formal exercise. Walking up and down the stairs briskly at work, without chest pain or dyspnea. Denies chest pain, pressure, tightness, and/or discomfort.Denies dyspnea with exertion or at rest. Sleeping in bed at night, without pillow most nights. Denies Orthopnea, PND, and/or cough when lying flat. No notable edema, provided she is taking her Spironolactone. Denies abdominal bloating and/or sensation of early satiety. Appetite has been good. On and off palpitations, that are not significantly concerning to her or limiting her. Denies lightheadedness, pre-syncope, and/or syncopal events. She is euvolemic on exam today without signs/symptomsof decompensated heart failure. Vital signs obtained in clinic today and within normal limits. Plan: -Review of prior cardiac testing. 2021 Stress Echo, showing stress imaging with findings consistentwith RCA/Lcx territory ischemia. LVEF at rest 55-59%, mildly increased concentric LV wall thickness, no resting LV segmental WMA's. Congenitally bicuspid aortic valve with Mild AI present. Abnormal prompted cardiac catheterization, which showed angiographically normal coronary arteries. -She presents today without cardiac complaint. EKG obtained in clinic today showing normal sinus rhythm with ventricular response of 79 bpm. Normal EKG. -Easily able to meet METs greater than 4, without the development of anginal symptoms. Revised Cardiac Risk Index Score of 0 points (Class I Risk) or 3.9 % 30-day risk of , [place], or cardiac arrest. No further cardiac testing recommended prior to undergoing planned Media Operator procedure. -Will update Echo, for continued surveillance of aortic valve in setting of congenitally bicuspid aortic valve and known mild AI. This does NOT need to occur prior to planned procedure. -Blood pressure well controlled in clinic today. Continue current medication regimen. Continued monitoring and management per PCP. -Most recent lipid panel reviewed with LDL within goal at 113. Continue Crestor 10 mg PO Daily. Continued monitoring and management per PCP. Patient to return to clinic in 1 year and PRN. OK to call patient with results and leave message, and/or [facility]. The plan was communicated to the patient, who verbalized understanding and agreement. All questions were answered to their satisfaction today. Patient instructed to call with any further questions or concerns. Total time spent on this date of service including non face to face was 60 minutes in preparation, delivery, and documentation of care provided to Paula Arzate, excluding time spent in performance of separately billable services. Details outlined above in impression and plan. Kaila Carmona, MSN, CATERING TRUCK DRIVER, ACN-AG Nurse Practitioner Division of Cardiology [address] [address] documented in this encounter Plan of Treatment Upcoming Encounters Date Type Department Care Team (Late st Contact Info) Description 07/21/2023 1:15 PM EDT Cardiac Studies Cardiac Studies [facility] [address] [facility] [place] [address] 07/26/2023 8:00 AM EDT Telemedicine Urogynecology [facility] [address] [place] [address] Jeffery Hamlin MD [address] [place] [address] 07/31/2023 10:15 AM EDT Appointment Radiology, [facility] [address] [place] [address] 07/31/2023 1:00 PM EDT Appointment Radiology, [id number] [place] [address] 08/23/2023 3:10 PM EDT Office Visit Urogynecology [facility] [address] [facility] [place] [address] Jeffery Hmalin MD [address] [place] [address] 06/24/2024 5:00 PM EDT Office Visit Family Practice, [facility] [address] [place] [address] Petra De La Cruz PA-C [address] [place] [address] 07/10/2024 11:30 AM EDT [facility] [address] [place] [address] Kaila Simental, CURLY [address] [place] [address] Scheduled Orders Name Type Priority Associated Diagnoses Orde r Schedule ECHO, COMPLETE (2D), TRANS-THORACIC Echocardiology Routine Aortic valve insufficiency, etiology of cardiac valve disease unspecified Expected: 06/23/2023 (Approximate), Expires: 06/22/2024 EKG COMPLETE (TRACING AND INTERP) EKG Routine Aortic valve insufficiency, etiology of cardiac valve disease unspecified Ordered: 06/23/2023 Health Maintenance Due Date Last Done Comments HIV Screening 1975 Hepatitis C Screening 01/25/1976 Colonoscopy 2003 Fecal Occult Blood Test 2003 Sigmoidoscopy 2003 Zoster Vaccines (1 of 2) 01/25/2008 COVID-19 Vaccine (1 - season) 2022 DXA Scan 2023 Pneumococcal Vaccine: [...] as of this encounter Visit Diagnoses Diagnosis Aortic valve insufficiency, etiology of cardiac valve disease unspecified- Primary Lower extremity edema Edema Dyslipidemia, goal LDL below 130 Other and unspecified hyperlipidemia documented in this encounter Advance Directives Latest Code Status on File Code Status Date Activated Date Inactivated Comments Full Code 12/13/2022 2:27 PM 12/13/2022 8:22 PM Thi s order reflects the patients wishes and were consensually agreed upon. Question Answer Comments Discussion of Advance Directives occurred with: Not Discussed due to patient's condition Care Teams Television Picture Tube Rebuilder Relationship Specialty Start Date End Date Petra De La Cruz PA-C [facility] [place] [address] PCP - General Physician Webfed Offset Press Operator 05/30/22 documented as of this encounter
--- OUTSIDE RECORDS SUMMARY | 2023-07-15 09:54 | External Medical Summary ---
Author Name Unknown Address Unknown Organization [id number]:[facility] - [address] [facility] [id number] Laboratory Report Ordering Provider Test Date Status SHANDA MARY 06/15/2023 08:43:00 Final Observation Date Value Abnormality Reference (Units ) Status BUN 06/15/2023 08:43:00 15 6-20 (mg/dL) Final Creatinine 06/15/2023 08:43:00 0.8 0.5-1.0 (mg/dL) Final Glomerular filtration rate/1.73 sq M.predicted [Volume Rate/Area] in Serum, Plasma or Blood by Creatinine-based formula (CKD-EPI) 06/15/2023 08:43:00 88 >=60 (mL/min) Final eGFR is calculated based on the CKD-EPI 2020 equation Sodium 06/15/2023 08:43:00 137 135-146 (m mol/L) Final Potassium 06/15/2023 08:43:00 4.0 3.5-5.1 (m mol/L) Final Cl 06/15/2023 08:43:00 100 98-107 (mm ol/L) Final CO2 06/15/2023 08:43:00 27 22-32 (mmo l/L) Final Anion gap 06/15/2023 08:43:00 10 7-15 (mmol /L) Final Glucose 06/15/2023 08:43:00 107 70-120 (mg /dL) Final Albumin 06/15/2023 08:43:00 4.5 3.8-5.0 (g /dL) Final AST (Aspartate aminotransferase) 06/15/2023 08:43:00 19 10-35 (U/L) Final Alk Phos 06/15/2023 08:43:00 56 35-130 (U/ L) Final Bilirubin, Total 06/15/2023 08:43:00 0.4 <=1 .2 (mg/dL) Final Calcium 06/15/2023 08:43:00 9.3 8.4-10.2 ( mg/dL) Final Protein 06/15/2023 08:43:00 6.9 6.0-8.3 (g /dL) Final ALT (Alanine aminotransferase) 06/15/2023 08:43:00 24 10-35 (U/L) Final Performing Location [facility] - [address] [facility] [id number]
--- OUTSIDE RECORDS SUMMARY | 2023-07-15 09:54 | External Medical Summary | Summary of Care ---
Author Name Unknown Organization [facility] Address [address] [place] [address] Phone [phone] Care Team Providers Care Shoe Laster Name Role Phone Petra De La Cruz PA-C Primary Care Provider Reason for Visit * Reason Onset Date Comments Surgery 03/15/2023 Encounter Details Date Type Department Care Team (Late st Contact Info) Description 03/15/2023 Telephone Urogynecology [facility] [email or web address] [place] [address] Jeffery Hamlin MD [email or web address] [place] [address] Surgery Allergies Active Allergy Reactions Criticality Noted Date Comments Sulfa Antibiotics Rash Low 08/04/2020 documented as of this encounter (statuses as of 05/08/2023) Medications Medication Sig Dispensed Refills Start Date End Date Status diphenhydrAMINE HCl 25 MG Oral Capsule Benadryl 0 Active Caltrate 600+D3 Soft 600-800 MG-UNIT Oral Tablet Chewable (Calcium Carb-Cholecalcifero l) Take by mouth. Patient takes 2 daily. 0 Active Slow Fe 142 (45 Fe) MG Oral Tablet Extended Release (Ferrous Sulfate ER) Take by mouth 2 times a day. 0 Active Spironolactone 25 MG Oral Tablet (Aldactone) TAKE 1 TO 2 TABLETS ONCE DAILY 180 Tablet 1 04/21/2022 Active Rosuvastatin Calcium 10 MG Oral Tablet (Crestor)Indication s:Other hyperlipidemia TAKE 1 TABLET BY MOUTH IN THE MORNING 30 Tablet 5 09/19/2022 Active Additional Information Patient not taking.Reported on 04/05/2023 Synthroid 125 MCG Oral TabletIndications:A cquired hypothyroidism,Abno rmal stress echocardiogram TAKE 1 TABLET BY MOUTH IN THE MORNING (AT LEAST 30 MINUTES PRIOR TO BREAKFAST OR OTHER MEDS) 90 Tablet 1 11/22/2022 Active oxyBUTYnin Chloride 5 MG Oral Tablet (Ditropan)Indicatio ns:Overactive bladder due to prolapse of female genital organ TAKE ONE-HALF (1/2) TABLET IN THE MORNING, ONE-HALF (1/2) TABLET AT NOON AND ONE-HALF (1/2) TABLET BEFORE BEDTIME 135 Tablet 3 12/19/2022 Active Estradiol 0.1 MG/GM Vaginal Cream (Estrace) Apply pea sized amount (0.5 gm) vaginally every other night. 42.5 g 3 01/11/2023 Active Gabapentin 100 MG Oral Capsule (Neurontin)Indicati ons:Nerve pain Take 1 Capsule by mouth daily as needed (pain). 30 Capsule 1 03/14/2023 Active cloNIDine HCl 0.1 MG Oral Tablet (Catapres) TAKE 1 TABLET BY MOUTH EVERY MORNING, 1 TABLET BY MOUTH AT NOON AND 1 TABLET BY MOUTH AT BEDTIME 30 Tablet 0 12/26/2022 4 Discontinu ed(Refill) documented as of this encounter (statuses as of 05/08/2023) Active Problems Problem Noted Date Diagnosed Date [...] as of this encounter (statuses as of 05/08/2023) Immunizations Name Administration Dates Next Due PPD 01/28/2023, 2,12/21/2021,07/29/19 22,06/12/2020 Seasonal Influenza, PF, 6 M & above, [...] encounter Miscellaneous Notes * Telephone Encounter - Rosangela Brink OSA - 05/08/2023 10:26 AM EDT Pt needs to be seen sooner that 07/12, her surgery is 07/13 at [facility]. Would she be able to get in for a cardiac clearance. Please call pt with an appt. Thanks * Telephone Encounter - Veronica Travis OSA - 04/25/2023 9:11 AM EST Looks like Pt is already scheduled for July 12. Maybe Pt can be seen sooner since the appointment isthe day before surgery? * Telephone Encounter - Rosangela Brink OSA - 04/25/2023 8:45 AM EST Pt needs a preop clearance for cardiology. 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 Can we get her scheduled at or [place]? Thanks * Telephone Encounter - Rosangela Brink OSA - 04/25/2023 8:[address] Hamlin, since pt is having surgery at [facility], does she need a type and screen ordered? * Telephone Encounter - Rosangela Brink OSA - 04/20/2023 12:57 PM EST Pt is having surgery on 07/13 at [facility]. Sorry there was a typo in the note. * Telephone Encounter - Sharona Bailon MED ASSIST - 04/10/2023 2:51 PM EST Schedule. .Sharona Bailon MED ASSIST * Telephone Encounter - Rosangela Brink OSA - 04/10/2023 10:12 AM EST Would you be able to help this pt get scheduled with cardiology for a preop clearance for surgery. See note below. Thank you * Telephone Encounter - Rosangela Brink OSA - 04/06/2023 1:53 PM EST Pt is having surgery with Dr Hamlin at [facility] on 07/23 for a Robotic assisted supracervical hysterectomy and sacral colpopexy. Dr Hamlin would like pt to have a cardiac clearance. Please contact pt with an appt. Thanks * Telephone Encounter - Rosangela Brink OSA - 04/06/2023 12:46 PM EST Pt has decided to go forward with her surgery. * Telephone Encounter - Rosangela Brink OSA - 04/06/2023 9:[address] Hamlin. Pt wanted to know if she could hold off a year to have surgery done. Pt has insurance but she has no paid time off. Please advise. * Telephone Encounter - Rosangela Brink OSA - 03/15/2023 11:35 AM EST LM on pt VM to call and schedule surgery with Dr Hamlin at [facility]. documented in this encounter Plan of Treatment Upcoming Encounters Date Type Department Care Team (Late st Contact Info) Description 06/19/2023 5:00 PM EDT Office Visit [facility] [address] [place] [address] Petra De La Cruz PA-C [address] [place] [address] 07/13/2023 10:15 AM EDT Office Visit Cardiology, [place] [address] [place] [address] Damion Pitt MD [address] [facility] [place] [address] 07/26/2023 8:00 AM EDT Telemedicine Urogynecology [facility] [address] [place] [address] Jeffery Hamlin MD [address] [place] [address] 07/31/2023 10:15 AM EDT Appointment Radiology, [facility] [address] [place] [address] 08/23/2023 3:10 PM EDT Office Visit Urogynecology [facility] [address] [place] [address] Jeffery Hamlin MD [address] [place] [address] Health Maintenance Due Date Last Done Comments HIV Screening 1973 Hepatitis C Screening 01/25/1976 Colonoscopy 2003 Fecal Occult Blood Test 2003 Sigmoidoscopy 2003 Zoster Vaccines (1 of 2) 01/25/2008 COVID-19 Vaccine ( - season) 2022 DXA Scan 2023 Pneumococcal Vaccine: 65+ Years (1 of 1 - PCV) 2023 Mammogram 04/11/2023 04/11/2022, 10/15/2020 GFR 05/31/2023 05/30/2022, 02/27, 04/20/2021, Additional history exists TSH 05/31/2023 05/30/2022, 02/27, 07/09/2021, Additional history exists Depression Screening 06/14/2023 06/13/2022 Albumin/Creatinine Ratio 03/14/2025 03/14/2022, 03/31 Diabetes Screening 05/30/2025 05/30/2022, 0 03/14/2022, 04/20/2021, Additional history exists Cologuard 07/06/2025 07/06/2022, 05/29, 06/25/2022 Colorectal Cancer Screening 07/06/2025 Lipid Panel 05/31/2027 05/30/2022, 02/27, 04/20/2021, Additional history exists DTaP,Tdap,and Td Vaccines (2 [...] Discussed due to patient's condition Care Teams Shoe Laster Relationship Specialty Start Date End Date Petra De La Cruz PA-C [facility] [place] [address] PCP - General Physician Stockroom Worker 05/30/22 documented as of this encounter
--- OUTSIDE RECORDS SUMMARY | 2023-07-15 09:54 | External Medical Summary ---
Author Name Unknown Address Unknown Organization [id number]:[facility] [place] [address] [facility] [address] Laboratory Report Ordering Provider Test Date Status SHANDA MARY 06/15/2023 08:43:00 Final Observation Date Value Abnormality Reference (Units ) Status Triglyceride 06/15/2023 08:43:00 100 <=174 ( mg/dL) Final Triglyceride Reference Range s (mg/dL):
<150 Acceptable
150-174 Borderline high
175-499 High
>=500 Very high Cholesterol 06/15/2023 08:43:00 186 <200 (mg /dL) Final Total Cholesterol Reference Ranges (mg/dL):
<200 Desirable
200-239 Borderline high
>=240 High HDL 06/15/2023 08:43:00 53 >49 (mg/dL ) Final HDL Cholesterol Reference Ra nges (mg/dL):
>=60 High (Desirable)
<50 Low (Undesirable) For Females
<40 Low (Undesirable) For Males NON-HDL CHOLESTEROL 06/15/2023 08:43:00 133 <=159 (mg/dL) Final Non-HDL Cholesterol Referenc e Range (mg/dL):
<100 Target level for high risk ASCVD patient
<130 Optimal for general population
130-159 Near optimal for general population
160-189 Borderline High
190-219 High
>=220 Very High LDL, (calculated) 06/15/2023 08:43:00 113 <= 129 (mg/dL) Final LDL Cholesterol Reference Ra nges (mg/dL):
<70 Target level for high risk ASCVD patient
<100 Optimal for general population
100-129 Near optimal for general population
130-159 Borderline high
160-189 High
>=190 Very high Performing Location [facility] [place] [address] [place] [address]
--- OUTSIDE RECORDS SUMMARY | 2023-07-15 09:54 | External Medical Summary | Summary of Care ---
Author Name Unknown Organization [facility] Address [address] [place] [address] Phone [phone] Care Team Providers Care Orchid Hand Name Role Phone Petra De La Cruz PA-C Primary Care Provider Reason for Visit * Reason Comments Urinary Tract Infection Symptoms Encounter Details Date Type Department Care Team (Latest Contact Info) Description 04/14/2023 5:45 PM EST [facility] Visit [address] [address] Sourav Cunningham PA-C [address] [place] [address] UTI symptoms*; Acute cystitis with hematuria Allergies Active Allergy Reactions Criticality Noted Date Comments Sulfa Antibiotics Rash Low 08/04/2020 documented as of this encounter (statuses as of 04/14/2023) Medications Medication Sig Dispensed Refills Start Date [...] taking.Reported on 04/05/2023 Synthroid 125 MCG Oral TabletIndications:Ac quired hypothyroidism,Abnor [...] 01/11/2023 Active Gabapentin 100 MG Oral Capsule (Neurontin)Indicatio ns:Nerve pain Take 1 Capsule by mouth daily as needed (pain). 30 Capsule 1 03/14/2023 Active Amoxicillin-Pot Clavulanate 875-125 MG Oral Tablet [...] AT BEDTIME 270 Tablet 0 04/14/2023 Active Ciprofloxacin HCl 500 MG Oral Tablet (Cipro)Indications:A cute cystitis with hematuria Take 1 Tablet by mouth in the morning and 1 Tablet before bedtime. Do all this for 5 days. 10 Tablet 0 04/14/2023 4 Active documented as of this encounter (statuses as of 04/14/2023) Active Problems Problem Noted Date Diagnosed Date [...] as of this encounter (statuses as of 04/14/2023) Immunizations Name Administration Dates Next Due PPD [...] Sign Reading Time Taken Comments Blood Pressure 118/76 04/14/2023 4:52 PM EST Pulse 88 04/14/2023 4:52 PM EST Temperature 36.2 C (97.2 F) 04/14/2023 4:52 PM ES T Respiratory Rate 20 04/14/2023 4:52 PM EST Oxygen Saturation 98% 04/14/2023 4:52 PM EST Inhaled Oxygen Concentration - - Weight 74.1 kg (163 lb 6.4 oz) 04/14/2023 4:52 P M EST Height - - Body Mass Index 28.05 04/05/2023 4:57 PM EST documented in this encounter Progress Notes * Sourav Cunningham PA-C - 04/14/2023 5:00 PM EST [facility] Basic Exam Paula Arzate is a 63 year old year old female who presents for evaluation of Dysuria, Urine Frequency started today. Review of Systems Constitutional: Negative. HENT: Negative. Eyes: Negative. Respiratory: Negative. Cardiovascular: Negative. Gastrointestinal: Negative. Endocrine: Negative. Genitourinary: Positive for dysuria and frequency. Musculoskeletal: Negative. Skin: Negative. Allergic/Immunologic: Negative. Neurological: Negative. Hematological: Negative. Psychiatric/Behavioral: Negative. PAST MEDICAL HISTORY: Past Medical History: Diagnosis Date Acquired hypothyroidism On synthroid OAB (overactive bladder) on oxybutynin Uterovaginal prolapse Past Surgical History: Procedure Laterality Date BREAST BIOPSY CORONARY ANGIOGRAPHY W/LEFT HEART CATH Right 05/03/2021 CORONARY ANGIOGRAPHY W/LEFT HEART CATH performed by Robert Olson MD at [facility] [place] [facility] [place] REMOVE CERVIX CONE W/LOOP ELECTRODE N/A 12/13/2022 LOOP ELECTROSURGERY EXCISION PROCEDURE performed by Alan Olsen MD at [facility] Social History Tobacco Use Smoking status: Never Smokeless tobacco: Never Substance Use Topics Alcohol use: Yes Comment: occ Vaping/E-Cigarette Use Vaping/E-Cigarette Use Never User Vaping/E-Cigarette Substances Vaping/E-Cigarette Devices Patient Active Problem List Diagnosis Code HTN, [...] initial abnormal smear Z01.42 Postoperative state Z98.890 Review of patient's allergies indicates: Allergen Reactions Sulfa Antibiotics Rash Current Outpatient Medications Medication Sig Dispense Refill diphenhydrAMINE HCl 25 MG Oral Capsule Benadryl Caltrate 600+D3 Soft 600-800 MG-UNIT Oral Tablet Chewable (Calcium Carb- Cholecalciferol) Take by mouth. Patient takes 2 daily. Spironolactone 25 MG Oral Tablet (Aldactone) TAKE 1 TO 2 TABLETS ONCE DAILY 180 Tablet 1 oxyBUTYnin Chloride 5 MG Oral Tablet (Ditropan) TAKE ONE-HALF (1/2) TABLET IN THE MORNING, ONE-HALF(1/2) TABLET AT NOON AND ONE-HALF (1/2) TABLET BEFORE BEDTIME 135 Tablet 3 Estradiol 0.1 MG/GM Vaginal Cream (Estrace) Apply pea sized amount (0.5 gm) vaginally every other night. 42.5 g 3 Gabapentin 100 MG Oral Capsule (Neurontin) Take 1 Capsule by mouth daily as needed (pain). 30 Capsule 1 oxyCODONE-Acetaminophen 5-325 MG Oral Tablet (Percocet) Take 1 Tablet by mouth every 6 hours as needed for Pain, Mild. cloNIDine HCl 0.1 MG Oral Tablet (Catapres) TAKE 1 TABLET BY MOUTH EVERY MORNING, 1 TABLET BY MOUTHAT NOON AND 1 TABLET BY MOUTH AT BEDTIME 270 Tablet 0 Ciprofloxacin HCl 500 MG Oral Tablet (Cipro) Take 1 Tablet by mouth in the morning and 1 Tablet before bedtime. Do all this for 5 days. 10 Tablet 0 Slow Fe 142 (45 Fe) MG Oral Tablet Extended Release (Ferrous Sulfate ER) Take by mouth 2 times a day. (Patient not taking: Reported on 04/05/2023) Rosuvastatin Calcium 10 MG Oral Tablet (Crestor) TAKE 1 TABLET BY MOUTH IN THE MORNING (Patient nottaking: Reported on 04/05/2023) 30 Tablet 5 Synthroid 125 MCG Oral Tablet TAKE 1 TABLET BY MOUTH IN THE MORNING (AT LEAST 30 MINUTES PRIOR TO BREAKFAST OR OTHER MEDS) 90 Tablet 1 Amoxicillin-Pot Clavulanate 875-125 MG Oral Tablet (Augmentin) Take 1 Tablet by mouth in the morning and 1 Tablet before bedtime. (Patient not taking: Reported on 04/05/2023) No current facility-administered medications for this visit. Nursing Notes and Vital Signs reviewed. BP 118/76 | Pulse 88 | Temp 36.2 C (97.2 F) (Tympanic) | Resp 20 | Wt 74.1 kg (163 lb 6.4 oz) |SpO2 98% | BMI 28.05 kg/m | BSA 1.83 m Physical Exam Constitutional: Appearance: Normal appearance. She is normal weight. HENT: Head: Normocephalic and atraumatic. Cardiovascular: Rate and Rhythm: Normal rate and regular rhythm. Pulses: Normal pulses. Heart sounds: Normal heart sounds. Pulmonary: Effort: Pulmonary effort is normal. Breath sounds: Normal breath sounds. Abdominal: General: Abdomen is flat. Bowel sounds are normal. Palpations: Abdomen is soft. Musculoskeletal: Cervical back: Normal range of motion and neck supple. Neurological: General: No focal deficit present. Mental Status: She is alert and oriented to person, place, and time. Mental status is at baseline. Psychiatric: Mood and Affect: Mood normal. Behavior: Behavior normal. Thought Content: Thought content normal. Judgment: Judgment normal. ASSESSMENT: UTI symptoms (Primary) - URINALYSIS, POINT OF CARE Mod WBC, Blood - CULTURE, URINE, QUANTITATIVE Acute cystitis with hematuria - Ciprofloxacin HCl 500 MG Oral Tablet (Cipro); Take 1 Tablet by mouth in the morning and 1 Tablet before bedtime. Do all this for 5 days. - Increase water Follow Up: Return if symptoms worsen or fail to improve, for Clinic Visit. | For: Clinic Visit Sourav Cunningham PA-C [address] [address] documented in this encounter Nursing Notes * Chayito Kimbrough LPN - 04/14/2023 4:55 PM EST Paula Arzate is a 63 year old female who presents to walk-in clinic today complaining of Chief Complaint Patient presents with Urinary Tract Infection Symptoms Main Symptoms:Patient presents today for UTI symptoms that started today. Tried: Nothing OTC Pt accompanied by: self documented in this encounter Plan of Treatment Upcoming Encounters Date Type Department Care Team (Late st Contact Info) Description 06/19/2023 5:00 PM EDT Office Visit [facility] [address] [place] [address] Petra De La Cruz PA-C [address] [place] [address] 07/13/2023 10:15 AM EDT [facility] [address] [place] [address] Damion Pitt MD [address] [place] [address] 07/26/2023 8:00 AM EDT Telemedicine Urogynecology [facility] [address] [place] [address] Jeffery Hamlin MD [address] [place] [address] 07/31/2023 10:15 AM EDT Appointment Radiology, [facility] [address] [place] [address] 08/23/2023 3:10 PM EDT Office Visit Urogynecology [facility] [address] [place] [address] Jeffery Hamlin MD [address] [place] [address] Pending Results Name Type Priority Associated Diagnoses Date /Time CULTURE, URINE, QUANTITATIVE Lab Routine UTI symptoms 04/14/2023 5:06 PM EST Health Maintenance Due Date Last Done Comments [...] Not on filedocumented as of this encounter Procedures Procedure Name Priority Date/Time Associated Diagnosis Comments URINALYSIS, POINT OF CARE (ENTER/EDIT) Routine 04/14/2023 5:13 PM EST UTI symptoms documented in this encounter Results * (ABNORMAL) URINALYSIS, POINT OF CARE (ENTER/EDIT) (04/14/2023 5:13 PM EST) Color, Urine Yellow Yellow or Light Yellow Clarity, Urine Clear Clear Glucose, Urine Negative Negative mg/dL Bilirubin, Urine Negative Negative Ketone, Urine Negative Negative mg/dL Specific [place], Urine 1.020 1.003 - 1.030 Blood, Urine Moderate(A) Negative pH, Urine 6.0 5.0 - 7.5 units Protein, Urine Negative Negative mg/dL Urobilinogen, Urine 0.2 0.2 - 1.0 mg/dL Nitrite, Urine Negative Negative Esterase, Urine Moderate(A) Negative Urine 04/14/2023 5:13 PM EST Sourav Cunningham PA-C LAB POINT OF CARE TE ST ENTER/EDIT ORDERABLES documented in this encounter Visit Diagnoses Diagnosis UTI symptoms- Primary Other symptoms involving urinary system Acute cystitis with hematuria Acute cystitis documented in this encounter Advance Directives Latest Code Status on File Code Status Date Activated Date Inactivated Comments Full Code 12/13/2022 2:27 PM 12/13/2022 8:22 PM Thi s order reflects the patients wishes and were consensually agreed upon. Question Answer Comments Discussion of Advance Directives occurred with: Not Discussed due to patient's condition Care Teams Orchid Hand Relationship Specialty Start Date End Date Petra De La Cruz PA-C [address] [place] [address] PCP - General Physician Systematic Theology Professor 05/30/22 documented as of this encounter"
--- OUTSIDE RECORDS SUMMARY | 2023-07-15 09:54 | External Medical Summary | Summary of Care ---
Author Name Unknown Organization [facility] Address [address] [place] [address] Phone [phone] Care Team Providers Care Floor Polisher Name Role Phone Petra De La Cruz PA-C Primary Care Provider Reason for Visit * Reason Onset Date Comments Surgery 03/15/2023 Encounter Details Date Type Department Care Team (Late st Contact Info) Description 03/15/2023 Telephone Urogynecology [facility] [address] [place] [address] Jeffery Hamlin MD [address] [place] [address] Surgery Allergies Active Allergy Reactions Criticality Noted Date Comments Sulfa Antibiotics Rash Low 08/04/2020 documented as of this encounter (statuses as of 05/09/2023) Medications Medication Sig Dispensed Refills Start Date [...] as of this encounter (statuses as of 05/09/2023) Active Problems Problem Noted Date Diagnosed Date [...] as of this encounter (statuses as of 05/09/2023) Immunizations Name Administration Dates Next Due PPD [...] encounter Miscellaneous Notes * Telephone Encounter - Mai Carranza MED ASSIST - 05/09/2023 12:30 PM EDT Pt is scheduled with Kaila Mercado on 06/23/2023 for a preop clearance. Pt is aware of time and dateand voiced confirmation KIMBERLEY Steel 05/09/2023 12:31 PM * Telephone Encounter - Rosangela Brink OSA - 05/08/2023 10:26 AM EDT Pt needs to be seen sooner that 07/12, her surgery is 07/13 at [facility]. Would she be able to get in [...] I have been sending message to her mason helper in [place] with no response. Can we get her scheduled at or [place]? Thanks * Telephone Encounter - Rosangela Brink OSA - 04/25/2023 8:[address] Hamlin, since pt is having surgery at [facility], does she need a type and screen ordered? * Telephone Encounter - Rosangela Brink OSA - 04/20/2023 12:57 PM EST Pt is having surgery on 07/13 at [facility]. Sorry there was a typo in the note. * Telephone Encounter - Sharona Bailon MED ASSIST - 04/10/2023 2:51 PM EST Schedule. .KIMBERLEY Burns * Telephone Encounter - Rosangela Brink OSA - 04/10/2023 10:12 AM EST Would you be able to help this pt get scheduled with cardiology for a preop clearance for surgery. See note below. Thank you * Telephone Encounter - Rosangela Brink OSA - 04/06/2023 1:53 PM EST Pt is having surgery with Dr Hamlin at [facility] on 07/23 for a Robotic [...] and schedule surgery with Dr Hamlin at [facility]. documented in this encounter Plan of Treatment Upcoming Encounters Date Type Department Care Team (Late st Contact Info) Description 06/19/2023 5:00 PM EDT Office Visit [facility] [address] [place] [address] Petra De La Cruz PA-C [address] [place] [address] 06/23/2023 2:00 PM EDT [facility] [address] [place] [address] Kaila Simental CRNP [address] [place] [address] 07/13/2023 10:15 AM EDT [facility] [address] [place] [address] Damion Pitt MD [address] [place] [address] 07/26/2023 8:00 AM EDT Telemedicine Urogynecology [facility] [address] [place] [address] Jeffery Hamlin MD [address] [place] [address] 07/31/2023 10:15 AM EDT Appointment Radiology, [facility] [address] [place] [address] 08/23/2023 3:10 PM EDT Office Visit Urogynecology [facility] [address] [place] [address] Jeffery Hamlin MD [address] [place] [address] Health Maintenance Due Date Last Done Comments [...] Additional history exists Depression Screening 06/14/2023 06/13/2022 Diabetes Screening 05/30/2025 05/30/2022, 0 03/14/2022, 04/20/2021, Additional history exists Cologuard 07/06/2025 07/06/2022, 05/29, 06/25/2022 Colorectal Cancer Screening 07/06/2025 Albumin/Creatinine Ratio 05/07/2026 024, 03/14/2022, 04/20/2021 Lipid Panel 05/31/2027 05/30/2022, 02/27, 04/20/2021, Additional [...] Discussed due to patient's condition Care Teams Floor Polisher Relationship Specialty Start Date End Date Petra De La Cruz PA-C [address] [place] [address] PCP - General Physician Machining Engineer 05/30/22 documented as of this encounter
--- OUTSIDE RECORDS SUMMARY | 2023-07-15 09:54 | External Medical Summary | Summary of Care ---
Author Name Unknown Organization [facility] Address [address] [place] [address] Phone [phone] Care Team Providers Care Lace Roller Name Role Phone Petra Land PA-C Primary Care Provider Reason for Visit * Reason Comments eRx-Medication Refill Encounter Details Date Type Department Care Team (Late st Contact Info) Description 06/09/2023 Refill [facility] [address] [place] [address] Petra Land PA-C [address] [place], [place] [id number] Nerve pain Allergies Active Allergy Reactions Criticality Noted Date Comments Sulfa Antibiotics Rash Low 08/04/2020 documented as of this encounter (statuses as of 06/13/2023) Medications Medication Sig Dispensed Refills Start Date [...] THE MORNING 30 Tablet 5 3 Active Additional Information Patient not taking.Reported on 04/05/2023 oxyBUTYnin Chloride 5 MG Oral Tablet (Ditropan)Indicatio ns:Overactive bladder due to prolapse of female genital organ TAKE ONE-HALF (1/2) TABLET IN THE MORNING, ONE-HALF (1/2) TABLET AT NOON AND ONE-HALF (1/2) TABLET BEFORE BEDTIME 135 Tablet 3 3 Active Estradiol 0.1 MG/GM Vaginal Cream (Estrace) Apply pea sized amount (0.5 gm) vaginally every other night. 42.5 g 3 3 Active Amoxicillin-Pot Clavulanate 875-125 MG Oral Tablet (Augmentin) Take 1 Tablet by mouth in the morning and 1 Tablet before bedtime. 0 Active oxyCODONE-Acetamino phen 5-325 MG Oral Tablet (Percocet) Take 1 Tablet by mouth every 6 hours as needed for Pain, Mild. 0 4 Active cloNIDine HCl 0.1 MG Oral Tablet (Catapres) TAKE 1 TABLET BY MOUTH EVERY MORNING, 1 TABLET BY MOUTH AT NOON AND 1 TABLET BY MOUTH AT BEDTIME 270 Tablet 0 4 Active Synthroid 125 MCG Oral TabletIndications:A cquired hypothyroidism,Abno [...] NEEDED FOR PAIN 7 Capsule 0 4 Active Gabapentin 100 MG Oral Capsule (Neurontin)Indicati ons:Nerve pain TAKE 1 CAPSULE BY MOUTH ONCE DAILY NEEDED FOR PAIN 30 Capsule 0 4 06/13/19 24 Discontinued documented as of this encounter (statuses as of 06/13/2023) Active Problems Problem Noted Date Diagnosed Date [...] as of this encounter (statuses as of 06/13/2023) Immunizations Name Administration Dates Next Due PPD [...] Telephone Encounter - Petra Land PA-C - 06/13/2023 1:24 PM EDT Signed Prescriptions: Disp Refills Gabapentin 100 MG Oral Capsule (Neurontin) 7 Caps*0 Sig: TAKE 1 CAPSULE BY MOUTH ONCE DAILY NEEDED FOR PAIN Authorizing Provider: PETRA LAND * Telephone Encounter - Mini Sinha LPN - 06/12/2023 10:15 AM EDTPending Prescriptions: Disp Refills Gabapentin 100 MG Oral Capsule (Neurontin) 7 Caps*0 Sig: TAKE 1 CAPSULE BY MOUTH ONCE DAILY NEEDED FOR PAIN * Telephone Encounter - Mini Sinha LPN - 06/12/2023 10:11 AM EDT Last appt: 06/13/2022 (in office), 11/11/2021 (telemedicine) Next appt: 06/19/2023 Pending Prescriptions: Disp Refills Gabapentin 100 MG Oral Capsule (Neurontin*7 Caps*0 Sig: TAKE 1 CAPSULE BY MOUTH ONCE DAILY NEEDED FOR PAIN See appt hx. * Telephone Encounter - Ena Mcmahon - 06/09/2023 8:28 PM EDTPending Prescriptions: Disp Refills Gabapentin 100 MG Oral Capsule 30 Cap*0 Sig: TAKE 1 CAPSULE BY MOUTH ONCE DAILY NEEDED FOR PAIN documented in this encounter Plan of Treatment Upcoming Encounters Date Type Department Care Team (Late st Contact Info) Description 06/19/2023 5:00 PM EDT Office Visit Family Practice, [facility] [address] [place] [address] Petra Land PA-C [address] [place] [address] 06/23/2023 2:00 PM EDT [facility] [address] [place] [address] Kaila Simental, CURLY [address] [place] [address] 07/26/2023 8:00 AM EDT Telemedicine Urogynecology [facility] [address] [facility] [place] [address] Jeffery Hamlin MD [address] [place] [address] 07/31/2023 10:15 AM EDT Appointment Radiology, [facility] [address] [place] [address] 08/23/2023 3:10 PM EDT Office Visit Urogynecology [facility] [address] [facility] [place] [address] Jeffery Hamlin MD [address] [facility] [address] Health Maintenance Due Date Last Done Comments [...] Discussed due to patient's condition Care Teams Lace Roller Relationship Specialty Start Date End Date Petra Land PA-C [address] [place] PCP - General Physician Glass Cut Off Supervisor 05/30/22 documented as of this encounter
--- OUTSIDE RECORDS SUMMARY | 2023-07-15 09:54 | External Medical Summary | Summary of Care ---
Author Name Unknown Organization [facility] Address [address] [place] [address] Phone [phone] Care Team Providers Care Hair Cutter Name Role Phone Petra De La Cruz PA-C Primary Care Provider Reason for Visit * Reason Comments Outpatient Testing Encounter Details Date Type Department Care Team (Late st Contact Info) Description 06/15/2023 8:50 AM EDT Laboratory Laboratory, [address] [address] [facility], Lab [address] [place] [address] Acquired hypothyroidism; Dyslipidemia, goal LDL below 70; HTN, goal below 150/90 Allergies Active Allergy Reactions Criticality Noted Date Comments Sulfa Antibiotics Rash Low 08/04/2020 documented as of this encounter (statuses as of 06/15/2023) Medications Medication Sig Dispensed Refills Start Date [...] as of this encounter (statuses as of 06/15/2023) Active Problems Problem Noted Date Diagnosed Date [...] as of this encounter (statuses as of 06/15/2023) Immunizations Name Administration Dates Next Due PPD [...] Description 06/19/2023 5:00 PM EDT [facility] [address] [place] [address] Petra De La Cruz PA-C [address] [place] [address] 06/23/2023 2:00 PM EDT [facility] [address] [place] [address] Kaila [facility]imental CRNP [address] [facility] [address] 07/26/2023 8:00 AM EDT Telemedicine Urogynecology [facility] [address] [place] [address] Jeffery Hamlin MD [address] [place] [address] 07/31/2023 10:15 AM EDT Appointment Radiology, [facility] [address] [place] [address] 08/23/2023 3:10 PM EDT Office Visit Urogynecology [facility] [address] [place] [address] Jeffery Hamlin MD [address] [place] [address] Pending Results Name Type Priority Associated Diagnoses Date /Time LIPID PANEL WITH DIRECT LDL IF TG IS HIGH Lab Routine Acquired hypothyroidism Dyslipidemia, goal LDL below 70 HTN, goal below 150/90 06/15/2023 8:43 AM EDT CBC WITH WBC DIFFERENTIAL Lab Routine Acquired hypothyroidism Dyslipidemia, goal LDL below 70 HTN, goal below 150/90 06/15/2023 8:43 AM EDT COMPREHENSIVE METABOLIC PANEL Lab Routine Acquired hypothyroidism Dyslipidemia, goal LDL below 70 HTN, goal below 150/90 06/15/2023 8:43 AM EDT TSH WITH FREE T4 IF INDICATED Lab Routine Acquired hypothyroidism Dyslipidemia, goal LDL below 70 HTN, goal below 150/90 06/15/2023 8:43 AM EDT 25-HYDROXY VITAMIN D Lab Routine Acquired hypothyroidism Dyslipidemia, goal LDL below 70 HTN, goal below 150/90 06/15/2023 8:43 AM EDT CBC Lab Routine Acquired hypothyroidism Dyslipidemia, goal LDL below 70 HTN, goal below 150/90 06/15/2023 8:43 AM EDT DIFFERENTIAL, AUTOMATED Lab Routine Acquired hypothyroidism Dyslipidemia, goal LDL below 70 HTN, goal below 150/90 06/15/2023 8:43 AM EDT Health Maintenance Due Date Last Done Comments [...] as of this encounter Visit Diagnoses Diagnosis Acquired hypothyroidism Unspecified hypothyroidism Dyslipidemia, goal LDL below 70 Other and unspecified hyperlipidemia HTN, goal below 150/90 documented in this encounter Advance Directives Latest Code Status on File Code Status Date Activated Date Inactivated Comments Full Code 12/13/2022 2:27 PM 12/13/2022 8:22 PM Thi s order reflects the patients wishes and were consensually agreed upon. Question Answer Comments Discussion of Advance Directives occurred with: Not Discussed due to patient's condition Care Teams Hair Cutter Relationship Specialty Start Date End Date Petra De La Cruz PA-C [address] [place] [address] PCP - General Physician Biostatistician 05/30/22 documented as of this encounter
--- OUTSIDE RECORDS SUMMARY | 2023-07-15 09:54 | External Medical Summary | Summary of Care ---
Author Name Unknown Organization [facility] Address [address] [place] [address] Phone [phone] Care Team Providers Care Incident Response Manager Name Role Phone Petra De La Cruz PA-C Primary Care Provider Reason for Visit * Reason Comments Outpatient Testing Encounter Details Date Type Department Care Team (Late st Contact Info) Description 05/08/2023 4:10 PM EDT Laboratory Laboratory, [address] [address] Gj[facility], Lab [address] [place] [id number] Acquired hypothyroidism; Dyslipidemia, goal LDL below 70; [...] AT BEDTIME 270 Tablet 0 04/14/2023 Active documented as of this encounter (statuses [...] Description 06/19/2023 5:00 PM EDT Office Visit [facility] [address] [place] [address] Petra De La Cruz PA-C [address] [place] [address] 07/13/2023 10:15 AM EDT Office Visit [facility]uan [address] [place] [address] Damion Pitt MD [address] [place] [address] 07/26/2023 8:00 AM EDT Telemedicine Urogynecology [facility] [address] [place] [address] Jeffery Hamlin MD [address] [place] [address] 07/31/2023 10:15 AM EDT Appointment Radiology, [facility] [address] [place] [address] 08/23/2023 3:10 PM EDT Office Visit Urogynecology [facility] [address] [place] [address] Jeffery Hamlin MD [address] [place] [address] Health Maintenance Due Date Last Done Comments [...] Discussed due to patient's condition Care Teams Incident Response Manager Relationship Specialty Start Date End Date Petra De La Cruz PA-C [facility] [place], [place] [id number] PCP - General Physician Nurse Supervisor 05/30/22 documented as of this encounter
--- OUTSIDE RECORDS SUMMARY | 2023-07-15 09:54 | External Medical Summary | Summary of Care ---
Author Name Unknown Organization [facility] Address [address] [place] [address] Phone [phone] Care Team Providers Care Developmental Psychologist Name Role Phone Petra De La Cruz PA-C Primary Care Provider Reason for Visit * Reason Onset Date Comments Surgery 03/15/2023 Encounter Details Date Type Department Care Team (Late st Contact Info) Description 03/15/2023 Telephone Urogynecology [facility] [address] [place] [address] Jeffery Hamlin MD [address] [place] [address] Surgery Allergies Active Allergy Reactions Criticality Noted Date Comments Sulfa Antibiotics Rash Low 08/04/2020 documented as of this encounter (statuses as of 04/25/2023) Medications Medication Sig Dispensed Refills Start Date [...] as of this encounter (statuses as of 04/25/2023) Active Problems Problem Noted Date Diagnosed Date [...] as of this encounter (statuses as of 04/25/2023) Immunizations Name Administration Dates Next Due PPD [...] the note. * Telephone Encounter - Sharona Bailon, MED ASSIST - 04/10/2023 2:51 PM EST [...] 5:00 PM EDT Office Visit Family Practice, [facility] [address] [place] [address] Petra De La Cruz PA-C [address] [place] [address] 07/13/2023 10:15 AM EDT [facility] [address] [place] [address] Damion Pitt MD [address] [place] [address] 07/26/2023 8:00 AM EDT Telemedicine Urogynecology [facility] [address] [facility] [place] [address] Jeffery Hamlin MD [address] [facility] [place] [address] 07/31/2023 10:15 AM EDT Appointment Radiology, [facility] [address] [place] [address] 08/23/2023 3:10 PM EDT Office Visit Urogynecology [facility] [address] [facility] [place] [address] eJffery Hamlin MD [address] [facility] [place] [address] Health Maintenance Due Date Last Done Comments [...] Discussed due to patient's condition Care Teams Developmental Psychologist Relationship Specialty Start Date End Date Petra De La Cruz PA-C [address] [place] [address] PCP - General Physician Housekeeper/Laundry Assistant 05/30/22 documented as of this encounter
--- OUTSIDE RECORDS SUMMARY | 2023-07-15 09:54 | External Medical Summary | Summary of Care ---
Author Name Unknown Organization [facility] Address [address] [place] [address] Phone [phone] Care Team Providers Care Public Utilities Sales Representative Name Role Phone Petra De La Cruz PA-C Primary Care Provider Reason for Visit * Reason Comments Outpatient Testing Encounter Details Date Type Department Care Team (Late st Contact Info) Description 06/15/2023 8:50 AM EDT Laboratory Laboratory, [address] [address] [facility], Lab [address] [place] [address] Acquired hypothyroidism; Dyslipidemia, goal LDL below [...] Description 06/19/2023 5:00 PM EDT Office Visit [facility] [address] [place] [address] Petra De La Cruz PA-C [address] [place] [address] 06/23/2023 2:00 PM EDT Office Visit [facility] [address] [place] [address] Kaila Simental CRNP [address] [place] [address] 07/26/2023 8:00 AM EDT Telemedicine Urogynecology [facility] [address] [facility] [place] [address] Jeffery Hamlin MD [address] [place] [address] 07/31/2023 10:15 AM EDT Appointment Radiology, [facility] [address] [place] [address] 08/23/2023 3:10 PM EDT Office Visit Urogynecology [facility] [address] [place] [address] Jeffery Hamlin MD [address] [place] [address] Scheduled Orders Name Type Priority Associated Diagnoses Orde r Schedule CBC Lab Routine Acquired hypothyroidism Dyslipidemia, goal LDL below 70 HTN, goal below 150/90 Ordered: 06/15/2023 DIFFERENTIAL, AUTOMATED Lab Routine Acquired hypothyroidism Dyslipidemia, goal LDL below 70 HTN, goal below 150/90 Ordered: 06/15/2023 Health Maintenance Due Date Last Done Comments [...] Discussed due to patient's condition Care Teams Public Utilities Sales Representative Relationship Specialty Start Date End Date Petra De La Cruz PA-C [address] [facility] [address] PCP - General Physician Test Inspection Engineer 05/30/22 documented as of this encounter
--- OUTSIDE RECORDS SUMMARY | 2023-07-15 09:54 | External Medical Summary ---
Author Name Unknown Address Unknown Organization [id number]:LABORATORY [facility] - [address] [place] [address] Laboratory Report Ordering Provider Test Date Status SHANDA MARY 05/08/2023 16:11:42 Final Normal: <30 mg/g creatinine< br/>High: 30-300 mg/g creatinine
Very High: >300 mg/g creatinine
Nephrotic: >2200 mg/g creatinine Observation Date Value Abnormality Reference (Units ) Status Albumin, Urine 05/08/2023 16:11:42 <1.20 (mg/dL) Final Creatinine, Urine 05/08/2023 16:11:42 108 (mg/dL) Final Albumin/Creatinine [Mass Ratio] in Urine 05/08/2023 16:11:42 <11 <30 (mg/g Creat) Final Performing Location LABORATORY [facility] - [address] [place] [address]
--- OUTSIDE RECORDS SUMMARY | 2023-07-15 09:54 | External Medical Summary ---
Author Name Unknown Address Unknown Organization [id number]:LABORATORY [facility] - [address] [facility] [address] [facility] [address] Laboratory Report Ordering Provider Test Date Status USMANSHANDA 06/15/2023 08:43:00 Final Observation Date Value Abnormality Reference (Units ) Status TSH 06/15/2023 08:43:00 1.53 0.27-4.20 (uIU/mL) Final Performing Location LABORATORY C - [address] [facility] [address]
--- OUTSIDE RECORDS SUMMARY | 2023-07-15 09:54 | External Medical Summary ---
Author Name Unknown Address Unknown Organization K1G:LABORATORY [facility] - [address] [facility] [address] Laboratory Report Ordering Provider Test Date Status SHANDA MARY 06/15/2023 08:43:00 Final Observation Date Value Abnormality Reference (Units ) Status SYNC LEUKOCYTES IN BLOOD BY AUTOMATED COUNT 06/15/2023 08:43:00 6.31 4.00-10.80 (K/uL) Final Segs 06/15/2023 08:43:00 54.4 40.0-75.0 (%) Final Lymphs % 06/15/2023 08:43:00 29.3 18.0-42.0 (%) Final Monos 06/15/2023 08:43:00 12.2 Above high normal 1.0-11.0 (%) Final Eosinophils 06/15/2023 08:43:00 3.6 0.0-6.0 (%) Final Basos 06/15/2023 08:43:00 0.5 0.0-2.0 (%) Final Absolute Segs 06/15/2023 08:43:00 3.43 1.80-7.70 (K/uL) Final Lymphs, absolute 06/15/2023 08:43:00 1.85 1.00-4.80 (K/ul) Final Monos, Abs 06/15/2023 08:43:00 0.77 0.00-1.10 (K/uL) Final Eos, Abs 06/15/2023 08:43:00 0.23 0.00-0.70 (K/uL) Final Basos, Abs 06/15/2023 08:43:00 0.03 0.00-0.20 (K/uL) Final Performing Location LAB[facility]ATORY [facility] [address] [facility] [address]
--- OUTSIDE RECORDS SUMMARY | 2023-07-15 09:54 | External Medical Summary | Summary of Care ---
Author Name Unknown Organization [facility] Address [address] [place] [address] Phone [phone] Care Team Providers Care Fruit Sprayer Name Role Phone Petra De La Cruz PA-C Primary Care Provider Reason for Visit * Reason Onset Date Comments Surgery 03/15/2023 Encounter Details Date Type Department Care Team (Late st Contact Info) Description 03/15/2023 Telephone Urogynecology [facility] [address] [place] [address] Jeffery Hamlin MD [address] [place] [address] Surgery Allergies Active Allergy Reactions Criticality Noted [...] 12:31 PM * Telephone Encounter - Rosangela Brnik OSA - 05/08/2023 10:26 AM EDT Pt needs to be seen sooner that 07/12, her surgery is 07/[address] [facility]. Would she be able to get [...] I have been sending message to her corrugated box machine operator in [place] with no response. Can we get her scheduled at or [place]? Thanks * Telephone Encounter - Rosangela Brink OSA - 04/25/2023 8:[address] Hamlin, since pt is having surgery at [facility], does she need a type and screen ordered? * Telephone Encounter - Rosangela Brink OSA - 04/20/2023 12:57 PM EST Pt is having surgery on 07/13 at [facility]. Sorry there was a typo in the [...] is having surgery with Dr Hamlin at [facility] on 07/23 for a Robotic assisted supracervical [...] and schedule surgery with Dr Hamlin at [facility]. documented in this encounter Plan of Treatment Upcoming Encounters Date Type Department Care Team (Late st Contact Info) Description 06/19/2023 5:00 PM EDT Office Visit [facility] [address] [place] [address] Petra De La Cruz PA-C [address] [place] [address] 06/23/2023 2:00 PM EDT [facility] [address] [place] [address] Kaila Simental CRNP [address] [place] [address] 07/13/2023 10:15 AM EDT [facility] [address] [place] [address] Damion Pitt MD [address] [place] [address] 07/26/2023 8:00 AM EDT Telemedicine Urogynecology [facility] [address] [place] [address] Jeffery Hamlin MD [address] [place] [address] 07/31/2023 10:15 AM EDT Appointment Radiology, [facility] [address] [place] [address] 08/23/2023 3:10 PM EDT Office Visit Urogynecology [facility] [address] [place] [address] Jeffery Hamlin MD [address] [place] [address] Health Maintenance Due Date Last Done Comments [...] Discussed due to patient's condition Care Teams Fruit Sprayer Relationship Specialty Start Date End Date Petra De La Cruz PA-C [address] [place] [address] PCP - General Physician Assistant Press Operator 05/30/22 documented as of this encounter
--- OUTSIDE RECORDS SUMMARY | 2023-07-15 09:54 | External Medical Summary ---
Author Name Unknown Address Unknown Organization K1G:LABORATORY [facility] [address] Laboratory Report Ordering Provider Test Date Status SHANDA MARY 06/15/2023 08:43:00 Final Observation Date Value Abnormality Reference (Units ) Status WBC, Total 06/15/2023 08:43:00 6.31 4.00-10.8 0 (K/uL) Final RBC 06/15/2023 08:43:00 4.17 3.85-5.15 (M/uL) Final Hemoglobin 06/15/2023 08:43:00 13.1 12.0-15.3 (g/dL) Final HCT 06/15/2023 08:43:00 40.1 36.0-45.2 (%) Final MCV 06/15/2023 08:43:00 96.2 81.5-97.5 (fL) Final MCH 06/15/2023 08:43:00 31.4 27.0-34.0 (pg) Final MCHC 06/15/2023 08:43:00 32.7 32.0-36.0 (g/dL) Final RDW 06/15/2023 08:43:00 12.3 11.5-15.5 (%) Final Platelets 06/15/2023 08:43:00 327 140-400 (K /uL) Final MPV 06/15/2023 08:43:00 9.0 6.6-11.1 ( fL) Final Performing Location [facility] [address] [facility] [address]
--- OUTSIDE RECORDS SUMMARY | 2023-07-15 09:54 | External Medical Summary | Summary of Care ---
Author Name Unknown Organization [facility] Address [address] [place] [address] Phone [phone] Care Team Providers Care Bicycle Assembler Name Role Phone Petra De La Cruz PA-C Primary Care Provider Reason for Visit * Reason Comments Outpatient Testing Encounter Details Date Type Department Care Team (Late st Contact Info) Description 06/15/2023 8:50 AM EDT Laboratory Laboratory, [address] [address] [facility], Lab [address] [place] [address] Acquired hypothyroidism; Dyslipidemia, goal LDL below [...] Description 06/19/2023 5:00 PM EDT Office Visit [facility] [address] [place] [address] Petra De La Cruz PA-C [address] [place] [address] 06/23/2023 2:00 PM EDT [facility] [address] [place] [address] Kaila Simental CRNP [address] [facility] [address] 07/26/2023 8:00 AM EDT Telemedicine Urogynecology [facility] [address] [place] [address] Jeffery Hamlin MD [address] [place] [address] 07/31/2023 10:15 AM EDT Appointment Radiology, [facility] [address] [place] [address] 08/23/2023 3:10 PM EDT Office Visit Urogynecology [facility] [address] [place] [address] Jeffery Hamlin MD [address] [place] [address] Pending Results Name Type Priority Associated Diagnoses [...] Discussed due to patient's condition Care Teams Bicycle Assembler Relationship Specialty Start Date End Date Petra De La Cruz PA-C [address] [place] [address] PCP - General Physician Secret Code Expert 05/30/22 documented as of this encounter
--- OUTSIDE RECORDS SUMMARY | 2023-07-15 09:54 | External Medical Summary | Summary of Care ---
Author Name Unknown Organization [facility] Address [address] [place] [address] Phone [phone] Care Team Providers Care Car Scrubber Name Role Phone Petra Land PA-C Primary Care Provider Reason for Visit * Reason Comments eRx-Medication Refill Encounter Details Date Type Department Care Team (Late st Contact Info) Description 05/09/2023 Refill [facility] [address] [place] [address] Petra Land PA-C [address] [place] [address] Acquired hypothyroidism; Abnormal stress echocardiogram; Nerve pain Allergies Active Allergy Reactions Criticality Noted Date Comments Sulfa Antibiotics Rash Low 08/04/2020 documented as of this encounter (statuses as of 05/10/2023) Medications Medication Sig Dispensed Refills Start Date [...] 2 TABLETS ONCE DAILY 180 Tablet 1 3 Active Rosuvastatin Calcium 10 MG Oral Tablet [...] OTHER MEDICATIONS 90 Tablet 0 4 Active Gabapentin 100 MG Oral Capsule (Neurontin)Indicati ons:Nerve pain TAKE 1 CAPSULE BY MOUTH ONCE DAILY NEEDED FOR PAIN 30 Capsule 0 4 Active Synthroid 125 MCG Oral TabletIndications:A cquired hypothyroidism,Abno rmal stress echocardiogram TAKE 1 TABLET BY MOUTH IN THE MORNING (AT LEAST 30 MINUTES PRIOR TO BREAKFAST OR OTHER MEDS) 90 Tablet 1 3 05/10/19 24 Discontinued Gabapentin 100 MG Oral Capsule (Neurontin)Indicati ons:Nerve pain Take 1 Capsule by mouth daily as needed (pain). 30 Capsule 1 4 05/10/19 24 Discontinued documented as of this encounter (statuses as of 05/10/2023) Active Problems Problem Noted Date Diagnosed Date [...] as of this encounter (statuses as of 05/10/2023) Immunizations Name Administration Dates Next Due PPD [...] Telephone Encounter - Petra Land PA-C - 05/10/2023 10:41 AM EDT Signed Prescriptions: Disp Refills Synthroid 125 MCG Oral Tablet 90 Tab*0 Sig: TAKE 1 TABLET BY MOUTH IN THE MORNING AT LEAST 30 MINUTES PRIOR TO BREAKFAST OR OTHER MEDICATIONS Authorizing Provider: PETRA LAND Ordering User: GAY SALEH Gabapentin 100 MG Oral Capsule (Neurontin) 30 Cap*0 Sig: TAKE 1 CAPSULE BY MOUTH ONCE D AILY NEEDED FOR PAIN Authorizing Provider: PETRA LAND * Telephone Encounter - Gay Saleh RPh - 05/10/2023 9:55 AM EDTPending Prescriptions: Disp Refills Gabapentin 100 MG Oral Capsule (Neurontin) 30 Cap*0 Sig: TAKE 1 CAPSULE BY MOUTH ONCE DAILY NEEDED FOR PAIN Signed Prescriptions: Disp Refills Synthroid 125 MCG Oral Tablet 90 Tab*0 Sig: TAKE 1 TABLET BY MOUTH IN THE MORNING AT LEAST 30 MINUTES PRIOR TO BREAKFAST OR OTHER MEDICATIONS Authorizing Provider: PETRA LAND Ordering User: GAY SALEH * Telephone Encounter - Gay Saleh RPh - 05/10/2023 9:55 AM EDT [facility] is currently not authorized to approve refills for the pended medication(s) per refill protocol. Please approve if appropriate. ThanksGay PharmD Clinical Pharmacist Centralized Clinical Pharmacy Services ([facility]) [phone] 05/10/2023, 9:55 AM * Telephone Encounter - Gay Saleh RPh - 05/10/2023 9:54 AM EDT Pending Prescriptions: Disp Refills Synthroid 125 MCG Oral Tablet 90 Tab*0 Sig: TAKE 1 TABLET BY MOUTH IN THE MORNING AT LEAST 30 MINUTES PRIOR TO BREAKFAST OR OTHER MEDICATIONS Gabapentin 100 MG Oral Capsule (Neurontin*30 Cap*0 Sig: TAKE 1 CAPSULE BY MOUTH ONCE DAILY NEEDED FOR PAIN Last Visit: 06/13/2022 (in office), 11/11/2021 (telemedicine) Next Visit: 06/19/2023 If no future appointments scheduled, and last appointment is greater than a year ago, please schedule patient for a follow-up appointment Last date the medication was ordered: 03/14/23 Pharmacy: [facility]- [place] Is this request for a controlled substance? No Urine Drug Screen:No results found for this or any previous visit. Patient Phone Numbers Labs: Lab Results Component Value Date/Time CREAT 0.7 05/30/2022 11:30 AM POTASSIUM 4.3 05/30/2022 11:30 AM TSH 0.82 05/30/2022 11:30 AM LDLCALC 81 05/30/2022 11:30 AM ALT 38 (H) 05/30/2022 11:30 AM documented in this encounter Plan of Treatment Upcoming Encounters Date Type Department Care Team (Late st Contact Info) Description 06/19/2023 5:00 PM EDT Office Visit [facility] [address] [place] [address] Petra Land PA-C [address] [place] [address] 06/23/2023 2:00 PM EDT [facility] [address] [place] [address] Kaila Simental CRNP [address] [facility] [address] 07/13/2023 10:15 AM EDT Office Visit Cardiology, [place] [address] [place] [address] Damion Pitt MD [address] [facility] [address] 07/26/2023 8:00 AM EDT Telemedicine Urogynecology [facility] [address] [facility] [place] [address] Jeffery Hamlin MD [address] [place] [address] 07/31/2023 10:15 AM EDT Appointment Radiology, [facility] [address] [place] [address] 08/23/2023 3:10 PM EDT Office Visit Urogynecology [facility] [address] [facility] [place] [address] Jeffery Hamlin MD [address] [place] [address] Health Maintenance Due Date Last Done Comments [...] Visit Diagnoses Diagnosis Acquired hypothyroidism Unspecified hypothyroidism Abnormal stress echocardiogram Other nonspecific abnormal cardiovascular system function study Nerve pain Neuralgia, neuritis, and radiculitis, unspecified documented in this encounter Advance Directives Latest Code Status on File Code Status Date Activated Date Inactivated Comments Full Code 12/13/2022 2:27 PM 12/13/2022 8:22 PM Thi s order reflects the patients wishes and were consensually agreed upon. Question Answer Comments Discussion of Advance Directives occurred with: Not Discussed due to patient's condition Care Teams Car Scrubber Relationship Specialty Start Date End Date Petra Land PA-C [address] [place] [address] PCP - General Physician National Sales Director 05/30/22 documented as of this encounter
--- OUTSIDE RECORDS SUMMARY | 2023-07-15 09:54 | External Medical Summary | Summary of Care ---
Author Name Unknown Organization [facility] Address [address] [place] [address] Phone [phone] Care Team Providers Care Extermination Supervisor Name Role Phone Petra De La Cruz PA-C Primary Care Provider Reason for Visit * Reason Onset Date Comments Surgery 03/15/2023 Encounter Details Date Type Department Care Team (Late st Contact Info) Description 03/15/2023 Telephone Urogynecology [facility] [address] [place] [address] Jeffery Hamlin MD [address] [place] [address] Surgery Allergies Active Allergy Reactions Criticality Noted [...] I have been sending message to her nutrition coordinator in [place] with no response. Can we get her scheduled at or [place]? Thanks * Telephone Encounter - Rosangela Brink OSA - 04/25/2023 8:[address] Hamlin, since pt is having surgery at [facility], does she need a type and screen ordered? * Telephone Encounter - Rosangela Brink OSA - 04/20/2023 12:57 PM EST Pt is having surgery on 07/13 at [facility]. Sorry there was a typo in the note. * Telephone Encounter - Sharona Bailon MED ASSIST - 04/10/2023 2:51 PM EST Schedule. .KIMBERLEY Burns ASSIST * Telephone Encounter - Rosangela Brink OSA - 04/10/2023 10:12 AM EST Would you be able to help this pt get scheduled with cardiology for a preop clearance for surgery. See note below. Thank you * Telephone Encounter - Rosangela Brink OSA - 04/06/2023 1:53 PM EST Pt is having surgery with Dr Hamlin at [facility] on 07/23 for a [...] Please advise. * Telephone Encounter - Rosangela Birnk OSA - 03/15/2023 11:35 AM EST LM on pt VM to call and schedule surgery with Dr Hamlin at [facility]. documented in this encounter Plan of Treatment Upcoming Encounters Date Type Department Care Team (Late st Contact Info) Description 06/19/2023 5:00 PM EDT Office Visit [facility] [address] [place] [address] Petra De La Cruz PA-C [address] [place] [address] 07/13/2023 10:15 AM EDT Office Visit [facility] [address] [place] [address] Damion Pitt MD [address] [place] [address] 07/26/2023 8:00 AM EDT Telemedicine Urogynecology [facility] [address] [facility] [place] [address] Jeffery Hamlin MD [address] [place] [address] 07/31/2023 10:15 AM EDT Appointment Radiology, [facility] [address] [place] [address] 08/23/2023 3:10 PM EDT Office Visit Urogy[facility] [address] [place] [address] Jeffery Hamlin MD [address] [place], [place] [address] Health Maintenance Due Date Last Done Comments HIV Screening 1973 Hepatitis C Screening 01/25/1976 Colonoscopy 2003 Fecal Occult Blood Test 2003 Sigmoidoscopy 2003 Zoster Vaccines (1 of 2) 01/25/2008 COVID-19 Vaccine (1 - 24 season) 2022 DXA Scan 2023 Pneumococcal Vaccine: [...] Discussed due to patient's condition Care Teams Extermination Supervisor Relationship Specialty Start Date End Date Petra De La Cruz PA-C [address] [facility] [address] PCP - General Physician Psych Assistant 05/30/22 documented as of this encounter
--- OUTSIDE RECORDS SUMMARY | 2023-07-15 09:54 | External Medical Summary | Summary of Care ---
Author Name Unknown Organization [facility] Address [address] [place] [address] Phone [phone] Care Team Providers Care District Wire Chief Name Role Phone Petra De La Cruz PA-C Primary Care Provider Reason for Visit * Reason Comments Urinary Tract Infection Symptoms Encounter Details Date Type Department Care Team (Latest Contact Info) Description 04/14/2023 5:45 PM EST Convenient Care Visit [address] [address] Sourav Cunningham PA-C [address] [place] [address] UTI symptoms*; Acute cystitis with hematuria Allergies Active Allergy Reactions Criticality Noted Date Comments Sulfa Antibiotics Rash Low 08/04/2020 documented as of this encounter (statuses as of 04/19/2023) Medications Medication Sig Dispensed Refills Start Date [...] as of this encounter (statuses as of 04/19/2023) Active Problems Problem Noted Date Diagnosed Date [...] as of this encounter (statuses as of 04/19/2023) Immunizations Name Administration Dates Next Due PPD [...] by Robert Olson MD [place] [facility] [place] CERVIX CONE W/LOOP ELECTRODE N/A 12/13/2022 LOOP ELECTROSURGERY EXCISION PROCEDURE performed by Alan Olsen MD at OR [facility] Social History Tobacco Use Smoking status: Never [...] | For: Clinic Visit Sourav Cunningham PA-C [address] [address] documented in this encounter Nursing Notes * [...] Description 06/19/2023 5:00 PM EDT Office Visit [facility] [address] [place] [address] Petra De La Cruz PA-C [address] [place] [address] 07/13/2023 10:15 AM EDT [facility] [address] [place] [address] Damion Pitt MD [address] [place] [address] 07/26/2023 8:00 AM EDT Telemedicine Urogynecology [facility] [address] [facility] [place] [address] Jeffery Hamlin MD [address] [facility] [place] [address] 07/31/2023 10:15 AM EDT Appointment Radiology, [facility] [address] [place] [address] 08/23/2023 3:10 PM EDT Office Visit Urogynecology [facility] [address] [facility] [place] [address] Jeffery Hamlin MD [address] [facility] [place] [address] Health Maintenance Due Date Last Done Comments [...] Routine 04/14/2023 5:13 PM EST UTI symptoms CULTURE, URINE, QUANTITATIVE Routine 04/14/2023 5:06 PM EST UTI symptoms documented in this encounter Results * (ABNORMAL) URINALYSIS, POINT OF CARE (ENTER/EDIT) (04/14/2023 5:13 PM EST) Color, Urine Yellow Yellow or Light Yellow Clarity, Urine Clear Clear Glucose, Urine Negative Negative mg/dL Bilirubin, Urine Negative Negative Ketone, Urine Negative Negative mg/dL Specific [place], Urine 1.020 1.003 - 1.030 Blood, Urine Moderate(A) Negative pH, Urine 6.0 5.0 - 7.5 units Protein, Urine Negative Negative mg/dL Urobilinogen, Urine 0.2 0.2 - 1.0 mg/dL Nitrite, Urine Negative Negative Esterase, Urine Moderate(A) Negative Urine 04/14/2023 5:13 PM EST Sourav Cunningham PA-C LAB POINT OF CARE TE ST ENTER/EDIT ORDERABLES * (ABNORMAL) CULTURE, URINE, QUANTITATIVE (04/14/2023 5:06 PM EST) Culture Growth >100,000 colonies/mL Enterococcus species(A) MICROBROTH DILUTIONS 04/18/2023 12:04 PM EST [facility] Urine Urine specimen obtained by clean catch procedure / Unknown Non-blood Collection / Unknown 04/14/2023 5:06 PM EST 04/14/2023 5:06 PM EST Narrative [facility] - 04/18/2023 12:04 PM EST <10,000 colonies/ml mixed normal snow Organism Antibiotic Method Susceptibility Enterococcus species Ampicillin MICROBROTH DILUTIONS <=2: Susceptible Enterococcus species Nitrofurantoin MICROBROTH DILUTIO NS <=16: Susceptible Enterococcus species Tetracycline MICROBROTH DILUTIONS >=16: Resistant Enterococcus species Vancomycin MICROBROTH DILUTIONS 1: Susceptible Sourav Cunningham PA-C LAB MICRO - GENERAL ORDERABLES [facility] [id number] documented in this encounter Visit Diagnoses Diagnosis [...] Discussed due to patient's condition Care Teams District Wire Chief Relationship Specialty Start Date End Date Petra De La Cruz PA-C [address] [place] [address] PCP - General Physician Licensed Nuclear Operator 05/30/22 documented as of this encounter"
--- OUTSIDE RECORDS SUMMARY | 2023-07-15 09:54 | External Medical Summary ---
Author Name Unknown Address Unknown Organization K01:[facility] [place] [address] [place] [address] Laboratory Report Ordering Provider Test Date Status SHANDA MARY 06/15/2023 08:43:00 Final Deficient: <20 ng/mL
Ins ufficient: 20-29 ng/mL
Recommended/Optimum:30-50 ng/mL

Vitamin D intoxication is rare. If suspicious of Vitamin D toxicity, evaluation of serum Calcium and PTH is recommended. Observation Date Value Abnormality Reference (Units ) Status 25-OH Vitamin D total 06/15/2023 08:43:00 39 >19 (ng/mL) Final Performing Location LABORATORY [facility] - [address] [place] [address]
--- OUTSIDE RECORDS SUMMARY | 2023-07-15 09:54 | External Medical Summary | Summary of Care ---
Author Name Unknown Organization [facility] Address [address] [place] [address] Phone [phone] Care Team Providers Care Teacher Physically Impaired Name Role Phone Petra De La Cruz PA-C Primary Care Provider Reason for Visit * Reason Onset Date Comments Surgery 03/15/2023 Encounter Details Date Type Department Care Team (Late st Contact Info) Description 03/15/2023 Telephone Urogynecology [facility] [address] [employer] [address] [place] [address] Jeffery Hamlin MD [address] [place] [address] Surgery Allergies Active Allergy Reactions Criticality Noted [...] encounter Miscellaneous Notes * Telephone Encounter - Veronica Travis OSA - 04/25/2023 9:11 AM EST Looks like Pt is already scheduled for July 12. Maybe Pt can be seen sooner since the appointment isthe day before surgery? * Telephone Encounter - Rosangela Brink OSA - 04/25/2023 8:45 AM EST Pt needs a preop clearance for cardiology. I have been sending message to her insulation inspector in [place] with no response. Can we get her scheduled at or [place]? Thanks * Telephone Encounter - Rosangela Brink OSA - 04/25/2023 8:[address] Hamlin, since pt is having surgery at [facility], does she need a type and screen ordered? * Telephone Encounter - Rosangela Brink OSA - 04/20/2023 12:57 PM EST Pt is having surgery on 07/13 at [facility]. Sorry there was a typo [...] is having surgery with Dr Hamlin at [facility] on 07/23 for a Robotic [...] and schedule surgery with Dr Hamlin at [facility]. documented in this encounter Plan of Treatment Upcoming Encounters Date Type Department Care Team (Late st Contact Info) Description 06/19/2023 5:00 PM EDT Office Visit [facility] [address] [place] [address] Petra De La Cruz PA-C [address] [place] [address] 07/13/2023 10:15 AM EDT [facility] [address] [place] [facility] [place] [address] Damion Pitt MD [address] [place] [address] 07/26/2023 8:00 AM EDT Telemedicine Urogynecology [facility] [address] [facility] [place] [address] [facility] [place] [address] 07/31/2023 10:15 AM EDT Appointment Radiology, [facility] [address] [place] [address] 08/23/2023 3:10 PM EDT Office Visit Urogynecology [facility] [address] [place] [address] Jeffery Hamlin MD [address] [place] [address] Health Maintenance Due Date Last Done Comments [...] Discussed due to patient's condition Care Teams Teacher Physically Impaired Relationship Specialty Start Date End Date Petra De La Cruz PA-C [address] [place] [address] PCP - General Physician Haulage Engine Operator 05/30/22 documented as of this encounter
--- OUTSIDE RECORDS SUMMARY | 2023-07-15 09:54 | External Medical Summary | Summary of Care ---
Author Name Unknown Organization [facility] Address [address] [place] [address] Phone [phone] Care Team Providers Care Undertaker Assistant Name Role Phone Petra De La Cruz PA-C Primary Care Provider Reason for Visit * Reason Onset Date Comments Surgery 03/15/2023 Encounter Details Date Type Department Care Team (Late st Contact Info) Description 03/15/[address] [facility] [address] [place] [address] Jeffery Hamlin MD [address] [place] [address] Surgery Allergies Active Allergy Reactions Criticality Noted Date Comments Sulfa Antibiotics Rash Low 08/04/2020 documented as of this encounter (statuses as of 04/20/2023) Medications Medication Sig Dispensed Refills Start Date [...] as of this encounter (statuses as of 04/20/2023) Active Problems Problem Noted Date Diagnosed Date [...] as of this encounter (statuses as of 04/20/2023) Immunizations Name Administration Dates Next Due PPD [...] Pt is having surgery on 07/13 at [facility]. Sorry there was a typo [...] is having surgery with Dr Hamlin at [facility] on 07/23 for a Robotic [...] and schedule surgery with Dr Hamlin at [facility]. documented in this encounter Plan of Treatment Upcoming Encounters Date Type Department Care Team (Late st Contact Info) Description 06/19/2023 5:00 PM EDT Office Visit [facility] [address] [place] [address] Petra De La Cruz PA-C [address] [place] [address] 07/13/2023 10:15 AM EDT [facility] [address] [place] [address] Damion Pitt MD [address] [facility] [place] [address] 07/26/2023 8:00 AM EDT Telemedicine Urogynecology [facility] [address] [facility] [place] [address] Jeffery Hamlin MD [address] [place] [address] 07/31/2023 10:15 AM EDT Appointment Radiology, [facility] [address] [place] [address] 08/23/2023 3:10 PM EDT Office Visit Urogynecology [facility] [address] [facility] [place] [address] Jeffery Hamlin MD [address] [place] [address] Health Maintenance Due Date Last Done Comments [...] Screening 06/14/2023 06/13/2022 Albumin/Creatinine Ratio 03/14/2025 03/14/2022, 02/03/2021 Diabetes Screening 05/30/2025 05/30/2022, 0 03/14/2022, 04/20/2021, [...] Discussed due to patient's condition Care Teams Undertaker Assistant Relationship Specialty Start Date End Date Petra De La Cruz PA-C [address] [facility] [address] PCP - General Physician Spiritual Minister 05/30/22 documented as of this encounter
--- OUTSIDE RECORDS SUMMARY | 2023-07-15 09:55 | External Medical Summary | Summary of Care ---
Author Name Unknown Organization [facility] Address [address] [place] [address] Phone [phone] Care Team Providers Care Bending Shed Worker Name Role Phone Petra De La Cruz PA-C Primary Care Provider Reason for Visit * Reason Comments Urinary Tract Infection Symptoms Encounter Details Date Type Department Care Team (Latest Contact Info) Description 04/14/2023 5:45 PM EST Convenient Care Visit [address] [address] Sourav Cunningham PA-C [address] [place] [address] UTI symptoms*; Acute cystitis with [...] Olson MD [place] [facility] [place] CERVIX [place]E W/LOOP ELECTRODE N/A 12/13/2022 LOOP ELECTROSURGERY EXCISION PROCEDURE performed by Alan Olsen MD at OR [facility] Social History Tobacco Use Smoking status: [...] | For: Clinic Visit Sourav Cunningham PA-C [address] [address] documented in this encounter Nursing Notes * [...] EDT Office Visit [facility] [address] [place] [address] Petra De La Cruz PA-C [address] [place] [address] 07/13/2023 10:15 AM EDT [facility] [address] [place] [address] Damion Pitt MD [address] [place] [address] 07/26/2023 8:00 AM EDT Telemedicine Urogynecology [facility] [address] [place] [address] Jeffery Hamlin MD [address] [place] [address] 07/31/2023 10:15 AM EDT Appointment Radiology, [facility] [address] [place] [address] 08/23/2023 3:10 PM EDT Office Visit Urogynecology [facility] [address] [place] [address] Jeffery Hamlin MD [address] [place] [address] Pending Results Name Type Priority Associated Diagnoses [...] Negative Ketone, Urine Negative Negative mg/dL Specific [place], Urine 1.020 1.003 - 1.030 Blood, Urine [...] Discussed due to patient's condition Care Teams Bending Shed Worker Relationship Specialty Start Date End Date Petra De La Cruz PA-C [address] [place] [address] PCP - General Physician Cancer Registrar 05/30/22 documented as of this encounter"
--- OUTSIDE RECORDS SUMMARY | 2023-07-15 09:55 | External Medical Summary ---
Author Name Unknown Address Unknown Organization K01:LABORATORY [facility] - [address] [facility] [address] Laboratory Report Ordering Provider Test Date Status ADELFO BOWDEN 02/11/2023 11:02:56 Final <10,000 colonies/ml mixed no rmal snow Observation Date Value Abnormality Reference (Units ) Status Bacteria identified in Specimen by Culture 02/11/2023 11:02:56 [id number]^ESCHE RICHIA COLI Abnormal Final >100,000 colonies/mL Escheri nicky coli Performing Location LABORATORY [facility] - [address] [facility] [address] Ordering Provider Test Date Status ADELFO BOWDEN 02/11/2023 11:02:56 Final Observation Date Value Abnormality Reference (Units ) Status Ampicillin 02/11/2023 11:02:56 <=2 Susceptible Final Cefazolin 02/11/2023 11:02:56 <=4 Susceptible Final Cefepime susceptibility 02/11/2023 11:02:56 <=1 Susceptible Final Ceftriaxone suceptibility 02/11/2023 11:02:56 <=1 Susceptible Final Ciprofloxacin 02/11/2023 11:02:56 <=0.25 Susceptible Final Due to serious side effects, the FDA has advised against using Ciprofloxacin to treat uncomplicated UTIs and respiratory tract infections unless there are no alternative treatment options. Gentamicin susceptibility 02/11/2023 11:02:56 <=1 Susc eptible Final Nitrofurantoin susceptibility 02/11/2023 11:02:56 <=16 Susceptible Final Piperacillin + Tazobactamsusceptibility 02/11/2023 11:02:56 <=4 Susceptible Final TMP-SMZ susceptibility 02/11/2023 11:02:56 <=20 Suscept ible Final Test: Culture, Urine, Quanti tative
Specimen Source: Urine, Clean Catch
Specimen Type: Urine
Specimen Date: 02/11/2023 11:02 AM
Result Date: 02/13/2023 6:59 AM
Result Status: Final result
Abnormal: Yes
Resulting Lab: LABORATORY [facility]
[address]
[place] [address]

CULTURE

>100,000 colonies/mL Escherichia coli (Abnormal)

<10,000 colonies/ml mixed normal snow

SUSCEPTIBILITY

Escherichia coli
METHOD MICROBROTH DILUTIONS

AMPICILLIN <=2 Susceptible
CEFAZOLIN <=4 Susceptible
CEFEPIME <=1 Susceptible
CEFTRIAXONE <=1 Susceptible
CIPROFLOXACIN <=0.25 Susceptible [1]
GENTAMICIN <=1 Susceptible
NITROFURANTOIN <=16 Susceptible
PIPERACILLIN TAZOBACTAM <=4 Susceptible
TRIMETH/SULFAMETHOXAZOLE <=20 Susceptible

[1] Due to serious side effects, the FDA has advised against using
Ciprofloxacin to treat uncomplicated UTIs and respiratory tract infections
unless there are no alternative treatment options.

null Performing Location LABORATORY [facility] - [address] [facility] [address]
--- OUTSIDE RECORDS SUMMARY | 2023-07-15 09:55 | External Medical Summary | Summary of Care ---
Author Name Unknown Organization [facility] Address [address] [place] [address] Phone [phone] Care Team Providers Care Gold Assayer Name Role Phone Petra De La Cruz PA-C Primary Care Provider Reason for Visit * Reason Onset Date Comments Health Maintenance 01/30/2023 Encounter Details Date Type Department Care Team (Late st Contact Info) Description 01/30/2023 Telephone Family [facility] [address] [place], [place] [phone] Petra De La Cruz PA-C [address] [place] [address] Health Maintenance Allergies Active Allergy Reactions Criticality Noted Date Comments Sulfa Antibiotics Rash Low 08/04/2020 documented as of this encounter (statuses as of 02/13/2023) Medications Medication Sig Dispensed Refills Start Date [...] THE MORNING 30 Tablet 5 09/19/2022 Active Synthroid 125 MCG Oral TabletIndications:Ac quired [...] BEFORE BEDTIME 135 Tablet 3 12/19/2022 Active cloNIDine HCl 0.1 MG Oral Tablet (Catapres) TAKE 1 TABLET BY MOUTH EVERY MORNING, 1 TABLET BY MOUTH AT NOON AND 1 TABLET BY MOUTH AT BEDTIME 30 Tablet 0 12/26/2022 Active Estradiol 0.1 MG/GM Vaginal Cream (Estrace) Apply pea sized amount (0.5 gm) vaginally every other night. 42.5 g 3 01/11/2023 Active Gabapentin 100 MG Oral Capsule (Neurontin)Indicatio ns:Nerve pain Take 1 Capsule by mouth daily as needed (pain). 30 Capsule 0 2023 Active Ciprofloxacin HCl 500 MG Oral Tablet (Cipro)Indications:U TI symptoms Take 1 Tablet by mouth in the morning and 1 Tablet before bedtime. Do all this for 10 days. 20 Tablet 0 12/08/2022 3 Discontinue d(Refill) Phenazopyridine HCl 200 MG Oral Tablet (Pyridium)Indication s:Dysuria Take 1 Tablet by mouth 3 times a day as needed for Pain, Mild. After meals for pain with urination 6 Tablet 0 12/08/2022 3 Discontinue d(End of Procedure) documented as of this encounter (statuses as of 02/13/2023) Active Problems Problem Noted Date Diagnosed Date [...] as of this encounter (statuses as of 02/13/2023) Immunizations Name Administration Dates Next Due PPD [...] encounter Miscellaneous Notes * Telephone Encounter - Marlene Hamilton LPN - 01/30/2023 2:36 PM EST Care Gaps Comprehensive Care Outreach Last Office/Telemedicine Visit: 06/13/2022 (in office), 11/11/2021 (telemedicine) Next Office Visit: 06/19/2023 Hemoglobin AIC Results: No results found for: "HEMOGLOBIN A1C" Reviewed Health Maintenance below: Health Maintenance Topic Date Due COVID-19 Vaccine (1) Never done HIV Screening Never done Hepatitis C Screening Never done Zoster Vaccines (1 of 2) Never done Influenza Vaccine (FLU shot) (1) 10/28/2022 DXA Scan Never done Pneumococcal Vaccine: 65+ Years (1 - PCV) Never done Mammogram 04/11/2023 Care Gap Outreach Action Taken: Left message and Myportal message sent documented in this encounter Plan of Treatment Upcoming Encounters Date Type Department Care Team (Late st Contact Info) Description 04/12/2023 10:00 AM EST Appointment Radiology, [facility] [address] [place] [address] 06/19/2023 5:00 PM EDT Office Visit Family Practice, [facility] [address] [place] [address] Petra De La Cruz PA-C [address] [place] [address] 07/21/2023 8:30 AM EDT Office Visit Gynecology/Obstetics [place] [address] [place] [phone] Denise Koroma PA-C [address] [place] [address] Health Maintenance Due Date Last Done Comments COVID-19 Vaccine (#1) 1960 HIV Screening 1973 Hepatitis C Screening 01/25/1976 Colonoscopy 2003 Fecal Occult Blood Test 2003 Sigmoidoscopy 2003 Zoster Vaccines (1 of 2) 01/25/2008 DXA Scan 2023 Pneumococcal Vaccine: 65+ Years (1 - PCV) 2023 Mammogram 04/11/2023 04/11/2022, 10/15/2020 [...] Discussed due to patient's condition Care Teams Gold Assayer Relationship Specialty Start Date End Date Petra De La Cruz PA-C [address] [place] [address] PCP - General Physician Valet Parking Attendant 05/30/22 documented as of this encounter
--- OUTSIDE RECORDS SUMMARY | 2023-07-15 09:55 | External Medical Summary ---
Author Name Unknown Address Unknown Organization K01:LABORATORY [facility] - [address] [place] [id number] Laboratory Report Ordering Provider Test Date Status TONY CHOE 04/05/2023 17:40:40 Final Observation Date Value Abnormality Reference (Units) Status Bacteria identified in Specimen by Culture 04/05/2023 17:40:40 No significant growth Final Test: Culture, Urine, Quanti tative
Specimen Source: Urine, Clean Catch
Specimen Type: Urine
Specimen Date: 04/05/2023 5:40 PM
Result Date: 04/07/2023 7:17 AM
Result Status: Final result
Resulting Lab: [facility]ORY [facility]
[address]
[facility] [address]

CULTURE

No significant growth

null Performing Location LABORATORY [facility] - [address] [facility] [address]
--- OUTSIDE RECORDS SUMMARY | 2023-07-15 09:55 | External Medical Summary | Summary of Care ---
Author Name Unknown Organization [facility] Address [address] [place] [address] Phone [phone] Care Team Providers Care Police Sergeant Name Role Phone Petra Land PA-C Primary Care Provider Reason for Visit * Reason Onset Date Comments Medication Refill 03/12/2023 Encounter Details Date Type Department Care Team (Late st Contact Info) Description 03/12/2023 Refill [facility] [address] [place] [address] Petra Land PA-C [address] [place], [place] [phone] Nerve pain Allergies Active Allergy Reactions Criticality Noted Date Comments Sulfa Antibiotics Rash Low 08/04/2020 documented as of this encounter (statuses as of 03/14/2023) Medications Medication Sig Dispensed Refills Start Date [...] other night. 42.5 g 3 01/11/2023 Active Amoxicillin 500 MG Oral Capsule (Amoxil)Indications: Tooth abscess Take 1 Capsule by mouth in the morning and 1 Capsule at noon and 1 Capsule before bedtime. Do all this for 10 days. 30 Capsule 0 03/11/2023 4 Active Gabapentin 100 MG Oral Capsule (Neurontin)Indicatio ns:Nerve pain Take 1 Capsule by mouth daily as needed (pain). 30 Capsule 1 03/14/2023 Active Gabapentin 100 MG Oral Capsule (Neurontin)Indicatio ns:Nerve pain Take 1 Capsule by mouth daily as needed (pain). 30 Capsule 0 2023 4 Discontinue d(Refill) documented as of this encounter (statuses as of 03/14/2023) Active Problems Problem Noted Date Diagnosed Date [...] as of this encounter (statuses as of 03/14/2023) Immunizations Name Administration Dates Next Due PPD [...] Telephone Encounter - Petra Land PA-C - 03/14/2023 8:20 AM EST Signed Prescriptions: Disp Refills Gabapentin 100 MG Oral Capsule (Neurontin) 30 Cap*1 Sig: Take 1 Capsule by mouth daily as needed (pain). Authorizing Provider: PETRA LAND * Telephone Encounter - Evon House RPh - 03/13/2023 3:37 PM EST Pending Prescriptions: Disp Refills Gabapentin 100 MG Oral Capsule (Neurontin) 30 Cap*1 Sig: Take 1Capsule by mouth daily as needed (pain). documented in this encounter Plan of Treatment Upcoming Encounters Date Type Department Care Team (Late st Contact Info) Description 04/12/2023 10:00 AM EST Appointment Radiology, [facility] [address] [place] [address] 06/19/2023 5:00 PM EDT Office Visit Family Practice, [facility] [address] [place] [address] Petra Land PA-C [address] [place] [address] 07/21/2023 8:30 AM EDT Office Visit Gynecology/Obstetics [place] [address] [place] [phone] Denise Koroma PA-C [address] [place] [address] Health Maintenance Due Date Last Done Comments [...] Discussed due to patient's condition Care Teams Police Sergeant Relationship Specialty Start Date End Date Petra Land PA-C [address] [facility] [address] PCP - General Physician Vegetable Vendor 05/30/22 documented as of this encounter
--- OUTSIDE RECORDS SUMMARY | 2023-07-15 09:55 | External Medical Summary | Summary of Care ---
Author Name Unknown Organization [facility] Address [address] [place] [address] Phone [phone] Care Team Providers Care Nurse Auditor Name Role Phone Petra De La Cruz PA-C Primary Care Provider Reason for Visit * Reason Onset Date Comments Health Maintenance 01/30/2023 Encounter Details Date Type Department Care Team (Late st Contact Info) Description 01/30/2023 Telephone Family [facility] [address] [place], [place] [phone] Petra De La Cruz PA-C [address] [place] [address] Health Maintenance Allergies Active Allergy Reactions Criticality Noted Date Comments Sulfa Antibiotics Rash Low 08/04/2020 documented as of this encounter (statuses as of 01/30/2023) Medications Medication Sig Dispensed Refills Start Date [...] OTHER MEDS) 90 Tablet 1 11/22/2022 Active Phenazopyridine HCl 200 MG Oral Tablet (Pyridium)Indication s:Dysuria Take 1 Tablet by mouth 3 times a day as needed for Pain, Mild. After meals for pain with urination 6 Tablet 0 12/08/2022 Active Additional Information Patient not taking.Reported on 01/11/2023 oxyBUTYnin Chloride 5 MG Oral Tablet (Ditropan)Indication [...] needed (pain). 30 Capsule 0 2023 Active documented as of this encounter (statuses as of 01/30/2023) Active Problems Problem Noted Date Diagnosed Date [...] as of this encounter (statuses as of 01/30/2023) Immunizations Name Administration Dates Next Due PPD 01/28/2023, 2,12/21/2021,07/29/19 22,06/12/2020 SEASONAL INFLUENZA, PF, 6 M & Above, IM , (FLULAVAL or FLUZONE) 10/30/2020 Seasonal Influenza, QUAD, wi th Preserv, [...] Description 04/12/2023 10:00 AM EST Appointment Radiology, [facility] [address] [place] [address] 06/19/2023 5:00 PM EDT Office Visit Family Practice, [facility] [address] [place] [address] Petra De La Cruz PA-C [address] [place] [address] 07/21/2023 8:30 AM EDT Office Visit Gynecology/Obstetics [place] [address] [place] [phone] Denise Koroma PA-C [address] [place] [address] Health Maintenance Due Date Last Done Comments COVID-19 Vaccine (#1) 1958 HIV Screening 1973 Hepatitis C Screening 01/25/1976 Colonoscopy 2003 Fecal Occult Blood Test 2003 Sigmoidoscopy 2003 Zoster Vaccines (1 of 2) 01/25/2008 Influenza Vaccine (FLU shot) (#1) 2022 12/28/2021, 10/30/2020 DXA Scan 2023 Pneumococcal Vaccine: 65+ Years [...] HPV/Co-Test Discontinued 07/18/2022 Pap Smear Discontinued 07/18/2022 GARDASIL-HPV IMMUNIZATION SERIES Aged Out No longer [...] Discussed due to patient's condition Care Teams Nurse Auditor Relationship Specialty Start Date End Date Petra De La Cruz PA-C [facility] [place] [address] PCP - General Physician Vascular Technologist Sonographer 05/30/22 documented as of this encounter
--- OUTSIDE RECORDS SUMMARY | 2023-07-15 09:55 | External Medical Summary | Summary of Care ---
Author Name Unknown Organization [facility] Address [address] [place] [address] Phone [phone] Care Team Providers Care Patent Solicitor Name Role Phone Petra De La Cruz PA-C Primary Care Provider Reason for Visit * Reason Onset Date Comments PPD Skin Test Pt. Here for 2nd step PPD. Pt. Had 1st step done at [facility]. Performed on 01/04/23 and read on 01/06/23 as negative. PPD Skin Test 01/28/2023 Encounter Details Date Type Department Care Team (Late st Contact Info) Description 01/28/2023 3:30 PM EST Nurse Only [facility] [address] [phone] Michelle Nurse [facility] [address] [address] PPD Skin Test (Pt. Here for 2nd step PPD. ... Allergies Active Allergy Reactions Criticality Noted Date Comments Sulfa Antibiotics Rash Low 08/04/2020 documented as of this encounter (statuses as of 01/28/2023) Medications Medication Sig Dispensed Refills Start Date [...] as of this encounter (statuses as of 01/28/2023) Active Problems Problem Noted Date Diagnosed Date [...] as of this encounter (statuses as of 01/28/2023) Immunizations Name Administration Dates Next Due PPD [...] Sign Reading Time Taken Comments Blood Pressure - - Pulse - - Temperature 36.5 C (97.7 F) 01/28/2023 3:49 PM ES T Respiratory Rate - - Oxygen Saturation - - Inhaled Oxygen Concentration - - Weight - - Height - - Body Mass Index - - documented in this encounter Patient Instructions * Patient Instructions* Tamera Womack RN - 01/28/2023 3:50 PM EST PATIENT INSTRUCTIONS FOR TUBERCULOSIS TESTING Also known as: Purified Protein Derivative (PPD) Whether you have active TB disease or simply test positive for TB infection, you must see a healthcare professional for evaluation and treatment. Tuberculosis (TB) is a disease that spreads through the air. It can cause serious health problems. TB is on the rise. To protect your health, get tested. Who Should Be Tested? Anyone can be exposed to TB. However, certain people are at higher risk for exposure, especially healthcare professionals, the homeless, and people coming from countries with high TB rates. People whose bodies are less able to fight off infections, such as the elderly and people with HIV and AIDS, are also more likely to get TB. If youre at risk for exposure, get tested regularly. The TB Skin Test The TB skin test tells you if the tuberculosis bacteria are in your body. Your healthcare professional places a small amount of solution under the skin with a needle to see if a reaction occurs. Keepin mind that although many people are infected with TB, very few develop TB disease. Getting Your TB Test Results Within 2-3 days after the test, youll be asked to return to your healthcare professional. Be sure to keep this appointment. Your test results will be evaluated during this visit. In some cases, a second test may be done to confirm results. What Do the Test Results Mean? Negative results mean you likely dont have the TB bacteria in your body. Positive results mean that you may have been infected with the TB bacteria. This doesnt necessarily mean you have active TB disease. More tests, such as chest x-rays, are needed to find out if youhave TB disease. [id number] [place] [address]. All rights reserved. This information is not intended as a substitute for professional medical care. Always follow your healthcare professional's instructions. documented in this encounter Progress Notes * Tamera Womack RN - 01/28/2023 3:50 PM EST Pt here for PPD administration. Has patient ever had a positive PPD Screening Test? No Has patient ever had the BCG tuberculosis vaccine? No If the patient responds yes to any of the questions, they are NOT eligible for a PPD. DO NOT administer the PPD Screening Test and Notify the provider. Time Out Procedure Performed: Yes Patient Identified (Ask Name/Date of ): Yes Immunization(s) verified: Yes, Immunization Name: PPD, VIS Sheet(s) given: No Verified Side and Site: Yes Verified Shot(s) with Parent(s)/Patient: Yes PPD applied at 3:49 PM and patient tolerated well. Patient to return to clinic in 48 hours for PPD Reading. documented in this encounter Plan of Treatment Upcoming Encounters Date Type Department Care Team (Late st Contact Info) Description 04/12/2023 10:00 AM EST Appointment Radiology, [facility] [address] [place] [address] 06/19/2023 5:00 PM EDT Office Visit Family Practice, [facility] [address] [place] [address] Petra De La Cruz PA-C [address] [place] [address] 07/21/2023 8:30 AM EDT Office Visit Gynecology/Obstetics [place] [address] [place] [phone] Denise Koroma PA-C [address] [place] [address] Health Maintenance Due Date Last Done Comments [...] as of this encounter Visit Diagnoses Diagnosis Screening-pulmonary TB- Primary Screening examination for pulmonary tuberculosis documented in this encounter Advance Directives Latest Code Status on File Code Status Date Activated Date Inactivated Comments Full Code 12/13/2022 2:27 PM 12/13/2022 8:22 PM Thi s order reflects the patients wishes and were consensually agreed upon. Question Answer Comments Discussion of Advance Directives occurred with: Not Discussed due to patient's condition Care Teams Patent Solicitor Relationship Specialty Start Date End Date Petra De La Cruz PA-C [address] [place] [address] PCP - General Physician De Icer Installer 05/30/22 documented as of this encounter
--- OUTSIDE RECORDS SUMMARY | 2023-07-15 09:55 | External Medical Summary ---
Author Name Unknown Address Unknown Organization K01:[facility] [address] [place] [address] Laboratory Report Ordering Provider Test Date Status TONY CHOE 04/14/2023 17:06:11 Final <10,000 colonies/ml mixed no rmal snow Observation Date Value Abnormality Reference (Units ) Status Bacteria identified in Specimen by Culture 04/14/2023 17:06:11 [id number]^ENTEROC OCCUS SPECIES Abnormal Final >100,000 colonies/mL Enteroc occus species Performing Location [facility] [place] [address] [place] [address] Ordering Provider Test Date Status TONY CHOE 04/14/2023 17:06:11 Final Observation Date Value Abnormality Reference (Units ) Status Ampicillin 04/14/2023 17:06:11 <=2 Susceptible Final Nitrofurantoin susceptibility 04/14/2023 17:06:11 <=16 Susceptible Final Tetracyclinesusceptibility 04/14/2023 17:06:11 >=16 Resistant Final Vancomycinsusceptibility 04/14/2023 17:06:11 1 Susceptible Final Test: Culture, Urine, Quanti tative
Specimen Source: Urine, Clean Catch
Specimen Type: Urine
Specimen Date: 04/14/2023 5:06 PM
Result Date: 04/18/2023 12:04 PM
Result Status: Final result
Abnormal: Yes
Resulting Lab: [facility]
[address] [facility]
[place] [address]

CULTURE

>100,000 colonies/mL Enterococcus species (Abnormal)

<10,000 colonies/ml mixed normal snow

SUSCEPTIBILITY

Enterococcus
species
METHOD MICROBROTH
DILUTIONS

AMPICILLIN <=2 Susceptible
NITROFURANTOIN <=16 Susceptible
TETRACYCLINE >=16 Resistant
VANCOMYCIN 1 Susceptible

null Performing Location [facility] - [address] [facility] [address]
--- OUTSIDE RECORDS SUMMARY | 2023-07-15 09:55 | External Medical Summary | Summary of Care ---
Author Name Unknown Organization [facility] Address [address] [place] [address] Phone [phone] Care Team Providers Care Hookman Name Role Phone Petra Land PA-C Primary Care Provider Reason for Visit * Reason Onset Date Comments Medication Refill 01/23/2023 Encounter Details Date Type Department Care Team (Late st Contact Info) Description 01/23/2023 Refill Family [facility] [address] [place] [address] Petra Land PA-C [address] [place], [place] [phone] Nerve pain Allergies Active Allergy Reactions Criticality Noted Date Comments Sulfa Antibiotics Rash Low 08/04/2020 documented as of this encounter (statuses as of 2023) Medications Medication Sig Dispensed Refills Start Date [...] 5 09/19/2022 Active Synthroid 125 MCG Oral TabletIndications:A cquired hypothyroidism,Abno rmal stress echocardiogram TAKE 1 TABLET BY MOUTH IN THE MORNING (AT LEAST 30 MINUTES PRIOR TO BREAKFAST OR OTHER MEDS) 90 Tablet 1 11/22/2022 Active Phenazopyridine HCl 200 MG Oral Tablet (Pyridium)Indicatio ns:Dysuria Take 1 Tablet by mouth 3 times a day as needed for Pain, Mild. After meals for pain with urination 6 Tablet 0 12/08/2022 Active Additional Information Patient not taking.Reported on 01/11/2023 oxyBUTYnin Chloride 5 MG Oral Tablet (Ditropan)Indicatio [...] needed (pain). 30 Capsule 0 2023 Active Gabapentin 100 MG Oral Capsule (Neurontin)Indicati ons:Nerve pain Take 1 Capsule by mouth in the morning. 30 Capsule 0 12/26/2022 3 Discontinu ed(Refill) documented as of this encounter (statuses as of 2023) Active Problems Problem Noted Date Diagnosed Date [...] as of this encounter (statuses as of 2023) Immunizations Name Administration Dates Next Due PPD 01/03/2022, 2,07/28/2021,06/13/19 21 SEASONAL INFLUENZA, PF, 6 M & Above, [...] Telephone Encounter - Petra Land PA-C - 2023 12:23 PM EST Signed Prescriptions: Disp Refills Gabapentin 100 MG Oral Capsule (Neurontin) 30 Cap*0 Sig: Take 1 Capsule by mouth daily as needed (pain). Authorizing Provider: PETRA LAND * Telephone Encounter - Palak Adler LPN - 2023 9:29 AM ESTPending Prescriptions: Disp Refills Gabapentin 100 MG Oral Capsule (Neurontin) 30 Cap*0 Sig: Take 1 Capsule by mouth in the morning. * Telephone Encounter - Palak Adler LPN - 2023 9:26 AM EST Call to patient, she had nerve "damage" from an injection in the past. Takes the Gabapentin now only as needed, it is improving. Would like new script sent to [facility] with new instructions to take only as needed. She reports the injection was in her right arm and that is where the pain occurs. * Telephone Encounter - Petra Land PA-C - 01/23/2023 6:10 PM EST Pending Prescriptions: Disp Refills Gabapentin 100 MG Oral Capsule (Neurontin) 30 Cap*0 Sig: Take 1 Capsule by mouth in the morning. * Telephone Encounter - Petra Land PA-C - 01/23/2023 6:09 PM EST Can we confirm what she takes this medication for. I have nerve pain but nothing in her chart. I have never actually seen this patient. documented in this encounter Plan of Treatment Upcoming Encounters Date Type Department Care Team (Late st Contact Info) Description 04/12/2023 10:00 AM EST Appointment Radiology, [facility] [address] [place] [address] 06/19/2023 5:00 PM EDT Office Visit Family Practice, [facility] [address] [place] [address] Petra Land PA-C [address] [place] [address] 07/21/2023 8:30 AM EDT Office Visit Gynecology/Obstetics [place] [address] [place] [phone] Denise Koroma PA-C [address] [place] [address] Health Maintenance Due Date Last Done Comments [...] Discussed due to patient's condition Care Teams Hookman Relationship Specialty Start Date End Date Petra Land PA-C [address] [place] [address] PCP - General Physician Winter Intern 05/30/22 documented as of this encounter
--- OUTSIDE RECORDS SUMMARY | 2023-07-15 09:55 | External Medical Summary | Summary of Care ---
Author Name Unknown Organization [facility] Address [address] [place] [address] Phone [phone] Care Team Providers Care Marketing Rep Name Role Phone Petra De La Cruz PA-C Primary Care Provider Reason for Visit * Reason Comments Toothache Encounter Details Date Type Department Care Team (Latest Contact Info) Description 03/11/2023 12:15 PM EST [facility] [address] [phone] Sourav Cunningham PA-C [address] [place] [address] Tooth abscess* Allergies Active Allergy Reactions Criticality Noted Date Comments Sulfa Antibiotics Rash Low 08/04/2020 documented as of this encounter (statuses as of 03/11/2023) Medications Medication Sig Dispensed Refills Start Date End Date Status diphenhydrAMINE HCl 25 MG Oral Capsule Benadryl 0 Active Caltrate 600+D3 Soft 600-800 MG-UNIT Oral Tablet Chewable (Calcium Carb-Cholecalciferol) Take by mouth. Patient takes 2 daily. 0 Active Slow Fe 142 (45 Fe) MG Oral Tablet Extended Release (Ferrous Sulfate ER) Take by mouth 2 times a day. 0 Active Spironolactone 25 MG Oral Tablet (Aldactone) TAKE 1 TO 2 TABLETS ONCE DAILY 180 Tablet 1 04/21/2022 Active Rosuvastatin Calcium 10 MG Oral Tablet (Crestor)Indications: Other hyperlipidemia TAKE 1 TABLET BY MOUTH IN THE MORNING 30 Tablet 5 09/19/2022 Active Synthroid 125 MCG Oral TabletIndications:Acq uired hypothyroidism,Abnorm al stress echocardiogram TAKE 1 TABLET BY MOUTH IN THE MORNING (AT LEAST 30 MINUTES PRIOR TO BREAKFAST OR OTHER MEDS) 90 Tablet 1 11/22/2022 Active oxyBUTYnin Chloride 5 MG Oral Tablet (Ditropan)Indications :Overactive bladder due to prolapse of female genital [...] 01/11/2023 Active Gabapentin 100 MG Oral Capsule (Neurontin)Indication s:Nerve pain Take 1 Capsule by mouth daily as needed (pain). 30 Capsule 0 2023 Active Amoxicillin 500 MG Oral Capsule (Amoxil)Indications:T ooth abscess Take 1 Capsule by mouth in the morning and 1 Capsule at noon and 1 Capsule before bedtime. Do all this for 10 days. 30 Capsule 0 03/11/2023 03/21/2023 Active documented as of this encounter (statuses as of 03/11/2023) Active Problems Problem Noted Date Diagnosed Date [...] as of this encounter (statuses as of 03/11/2023) Immunizations Name Administration Dates Next Due PPD [...] Sign Reading Time Taken Comments Blood Pressure 116/70 03/11/2023 12:15 PM EST Pulse 73 03/11/2023 12:15 PM EST Temperature 36.6 C (97.8 F) 03/11/2023 12:[address] Respiratory Rate 18 03/11/2023 12:15 PM EST Oxygen Saturation 97% 03/11/2023 12:15 PM EST Inhaled Oxygen Concentration - - Weight 77.1 kg (170 lb) 03/11/2023 12:15 PM EST Height - - Body Mass Index 29.18 02/11/2023 10:50 AM EST documented in this encounter Progress Notes * Sourav Cunningham PA-C - 03/11/2023 12:17 PM EST Images from the original note were not included. [facility] Basic Exam Paula Arzate is a 63 year old year old female who presents for evaluation of tooth pain of and on for a while. Review of Systems Constitutional: Negative. HENT: Positive for dental problem. Eyes: Negative. Respiratory: Negative. Cardiovascular: Negative. Gastrointestinal: Negative. Endocrine: Negative. Genitourinary: Negative. Musculoskeletal: Negative. Skin: Negative. Allergic/Immunologic: Negative. Neurological: Negative. Hematological: Negative. Psychiatric/Behavioral: Negative. PAST MEDICAL HISTORY: Past Medical History: Diagnosis Date Acquired hypothyroidism On synthroid OAB (overactive bladder) on oxybutynin Uterovaginal prolapse Past Surgical History: Procedure Laterality Date BREAST BIOPSY CORONARY ANGIOGRAPHY W/LEFT HEART CATH Right 05/03/2021 CORONARY ANGIOGRAPHY W/LEFT HEART CATH performed by Robert Olson MD at [facility] REMOVE CERVIX CONE W/LOOP ELECTRODE N/A 12/13/2022 LOOP ELECTROSURGERY EXCISION PROCEDURE performed by Alan Olsen MD at OR [facility] Social History Tobacco Use Smoking status: Never [...] Current Outpatient Medications Medication Sig Dispense Refill Amoxicillin 500 MG Oral Capsule (Amoxil) Take 1 Capsule by mouth in the morning and 1 Capsule at noon and 1 Capsule before bedtime. Do all this for 10 days. 30 Capsule 0 diphenhydrAMINE HCl 25 MG Oral Capsule Benadryl Caltrate 600+D3 Soft 600-800 MG-UNIT Oral Tablet Chewable (Calcium Carb- Cholecalciferol) Take by mouth. Patient takes 2 daily. Slow Fe 142 (45 Fe) MG Oral Tablet Extended Release (Ferrous Sulfate ER) Take by mouth 2 times a day. Spironolactone 25 MG Oral Tablet (Aldactone) TAKE 1 TO 2 TABLETS ONCE DAILY 180 Tablet 1 Rosuvastatin Calcium 10 MG Oral Tablet (Crestor) TAKE 1 TABLET BY MOUTH IN THE MORNING 30 Tablet 5 Synthroid 125 MCG Oral Tablet TAKE 1 TABLET BY MOUTH IN THE MORNING (AT LEAST 30 MINUTES PRIOR TO BREAKFAST OR OTHER MEDS) 90 Tablet 1 oxyBUTYnin Chloride 5 MG Oral Tablet (Ditropan) TAKE ONE-HALF (1/2) TABLET IN THE MORNING, ONE-HALF(1/2) TABLET AT NOON AND ONE-HALF (1/2) TABLET BEFORE BEDTIME 135 Tablet 3 cloNIDine HCl 0.1 MG Oral Tablet (Catapres) TAKE 1 TABLET BY MOUTH EVERY MORNING, 1 TABLET BY MOUTHAT NOON AND 1 TABLET BY MOUTH AT BEDTIME 30 Tablet 0 Estradiol 0.1 MG/GM Vaginal Cream (Estrace) Apply pea sized amount (0.5 gm) vaginally every other night. 42.5 g 3 Gabapentin 100 MG Oral Capsule (Neurontin) Take 1 Capsule by mouth daily as needed (pain). 30 Capsule 0 No current facility-administered medications for this visit. Nursing Notes and Vital Signs reviewed. BP 116/70 | Pulse 73 | Temp 36.6 C (97.8 F) (Tympanic) | Resp 18 | Wt 77.1 kg (170 lb) | SpO2 97% | BMI 29.18 kg/m | BSA 1.87 m Physical Exam Constitutional: Appearance: Normal appearance. She is normal weight. HENT: Head: Normocephalic and atraumatic. Right Ear: Tympanic membrane, ear canal and external ear normal. Left Ear: Tympanic membrane, ear canal and external ear normal. Nose: Nose normal. Mouth/Throat: Pharynx: Oropharynx is clear. Eyes: Extraocular Movements: Extraocular movements intact. Cardiovascular: Rate and Rhythm: Normal rate and regular rhythm. Pulses: Normal pulses. Heart sounds: Normal heart sounds. Pulmonary: Effort: Pulmonary effort is normal. Breath sounds: Normal breath sounds. Musculoskeletal: General: Normal range of motion. Cervical back: Normal range of motion and neck supple. Skin: General: Skin is warm. Neurological: General: No focal deficit present. Mental Status: She is alert and oriented to person, place, and time. Mental status is at baseline. Psychiatric: Mood and Affect: Mood normal. Behavior: Behavior normal. Thought Content: Thought content normal. Judgment: Judgment normal. ASSESSMENT: Tooth abscess (Primary) - Amoxicillin 500 MG Oral Capsule (Amoxil); Take 1 Capsule by mouth in the morning and 1 Capsule atnoon and 1 Capsule before bedtime. Do all this for 10 days. - see Dentist - [facility] Follow Up: Return if symptoms worsen or fail to improve, for Clinic Visit. | For: Clinic Visit Sourav Cunningham PA-C [address] [phone] documented in this encounter Nursing Notes * Kaylie Timmons CMA - 03/11/2023 12:16 PM EST Nursing Notes: CC: Chief Complaint Patient presents with Toothache Brief Hx: Patient complains of tooth pain Duration/Onset: off and on for a while OTC meds: ibuprofen Accompanied by: self documented in this encounter Plan of Treatment Upcoming Encounters Date Type Department Care Team (Late st Contact Info) Description 04/12/2023 10:00 AM EST Appointment Radiology, [facility] [address] [place] [address] 06/19/2023 5:00 PM EDT Office Visit Family Practice, [facility] [address] [place] [address] Petra De La Cruz PA-C [address] [place] [address] 07/21/2023 8:30 AM EDT Office Visit Gynecology/Obstetics [address] [phone] Denise Koroma PA-C [address] [place] [address] Health Maintenance Due Date Last Done Comments [...] as of this encounter Visit Diagnoses Diagnosis Tooth abscess- Primary Periapical abscess without sinus documented in this encounter Advance Directives Latest Code Status on File Code Status Date Activated Date Inactivated Comments Full Code 12/13/2022 2:27 PM 12/13/2022 8:22 PM Thi s order reflects the patients wishes and were consensually agreed upon. Question Answer Comments Discussion of Advance Directives occurred with: Not Discussed due to patient's condition Care Teams Marketing Rep Relationship Specialty Start Date End Date Petra De La Cruz PA-C [address] [place] [address] PCP - General Physician Stuffing Machine Operator 05/30/22 documented as of this encounter"
--- OUTSIDE RECORDS SUMMARY | 2023-07-15 09:55 | External Medical Summary | Summary of Care ---
Author Name Unknown Organization [facility] Address [address] [place] [address] Phone [phone] Care Team Providers Care Instrumentation Tech Name Role Phone Petra De La Cruz PA-C Primary Care Provider Reason for Visit * Reason Comments Fever At home 100 Generalized Body Aches Encounter Details Date Type Department Care Team (Latest Contact Info) Description 04/05/2023 5:45 PM EST [facility] Visit [facility], [address] [phone] Sourav Cunningham PA-C [address] [place] [address] Pain radiating to lower abdomen*; Fever, unspecified fever cause; Acute cough Allergies Active Allergy Reactions Criticality Noted Date Comments Sulfa Antibiotics Rash Low 08/04/2020 documented as of this encounter (statuses as of 04/05/2023) Medications Medication Sig Dispensed Refills Start Date [...] needed for Pain, Mild. 0 03/23/2023 Active documented as of this encounter (statuses as of 04/05/2023) Active Problems Problem Noted Date Diagnosed Date [...] as of this encounter (statuses as of 04/05/2023) Immunizations Name Administration Dates Next Due PPD 01/28/2023, 2,12/21/2021,07/29/19 22,06/12/2020 Seasonal Influenza, PF, 6 M & above, IM , (FluLaval or Fluzone) 10/30/2020 Seasonal Influenza, QUAD, wi th Preserv, 6 mons & Above, 0.5 mL, IM 12/28/2021 TDAP (age 10 and older)(Boostrix) 08/04/2020 documented as of this encounter Social History Tobacco Use Types Packs/Day Years Used Date Smoking Tobacco: Never Smokeless Tobacco: Never Tobacco Cessation:Counseling Given: Not Answered Alcohol Use Standard Drinks/Week Comments Yes 0 [...] Sign Reading Time Taken Comments Blood Pressure 144/84 04/05/2023 4:57 PM EST Pulse 127 04/05/2023 4:57 PM EST Temperature 37.8 C (100 F) 04/05/2023 4:57 PM EST Respiratory Rate 18 04/05/2023 4:57 PM EST Oxygen Saturation 99% 04/05/2023 4:57 PM EST Inhaled Oxygen Concentration - - Weight 74.4 kg (164 lb) 04/05/2023 4:57 PM EST Height 162.6 cm (5' 4") 04/05/2023 4:57 PM EST Body Mass Index 28.15 04/05/2023 4:57 PM EST documented in this encounter Progress Notes * Sourav Cunningham PA-C - 04/05/2023 5:27 PM EST [facility] Basic Exam Paula Arzate is a 63 year old year old female who presents for evaluation of Fever at home and Myalgia. Sx onset 04/05/23 Review of Systems Constitutional: Positive for fever. HENT: Negative. Eyes: Negative. Respiratory: Negative. Cardiovascular: Negative. Gastrointestinal: Negative. Endocrine: Negative. Genitourinary: Negative. Musculoskeletal: Positive for myalgias. Skin: Negative. Allergic/Immunologic: Negative. Neurological: Negative. Hematological: Negative. Psychiatric/Behavioral: Negative. PAST MEDICAL HISTORY: Past Medical History: Diagnosis Date Acquired hypothyroidism On synthroid OAB (overactive bladder) on oxybutynin Uterovaginal prolapse Past Surgical History: Procedure Laterality Date BREAST BIOPSY CORONARY ANGIOGRAPHY W/LEFT HEART CATH Right 05/03/2021 CORONARY ANGIOGRAPHY W/LEFT HEART CATH performed [place] [facility] [place] CERVIX CONE W/LOOP ELECTRODE N/A 12/13/2022 LOOP ELECTROSURGERY EXCISION PROCEDURE performed by Alan Olsen MD at [facility] Social History Tobacco Use Smoking status: Never [...] 2 TABLETS ONCE DAILY 180 Tablet 1 Synthroid 125 MCG Oral Tablet TAKE 1 [...] 6 hours as needed for Pain, Mild. Slow Fe 142 (45 Fe) MG Oral Tablet Extended Release (Ferrous Sulfate ER) Take by mouth 2 times a day. (Patient not taking: Reported on 04/05/2023) Rosuvastatin Calcium 10 MG Oral Tablet (Crestor) TAKE 1 TABLET BY MOUTH IN THE MORNING (Patient nottaking: Reported on 04/05/2023) 30 Tablet 5 Amoxicillin-Pot Clavulanate 875-125 MG Oral Tablet (Augmentin) Take 1 Tablet by mouth in the morning and 1 Tablet before bedtime. (Patient not taking: Reported on 04/05/2023) No current facility-administered medications for this visit. Nursing Notes and Vital Signs reviewed. BP 144/84 | Pulse 127 | Temp 37.8 C (100 F) (Tympanic) | Resp 18 | Ht 1.626 m (5' 4") | Wt 74.4kg (164 lb) | SpO2 99% | BMI 28.15 kg/m | BSA 1.83 m Physical Exam Constitutional: Appearance: Normal appearance. She is normal weight. HENT: Head: Normocephalic and atraumatic. Right Ear: Tympanic membrane, ear canal and external ear normal. Left Ear: Tympanic membrane, ear canal and external ear normal. Nose: Nose normal. Mouth/Throat: Pharynx: Oropharynx is clear. Cardiovascular: Rate and Rhythm: Normal rate and regular rhythm. Pulses: Normal pulses. Heart sounds: Normal heart sounds. Pulmonary: Effort: Pulmonary effort is normal. Breath sounds: Normal breath sounds. Abdominal: General: Abdomen is flat. Bowel sounds are normal. Palpations: Abdomen is soft. Tenderness: There is abdominal tenderness. Musculoskeletal: General: Normal range of motion. Cervical back: Normal range of motion and neck supple. Skin: General: Skin is warm. Neurological: General: No focal deficit present. Mental Status: She is alert and oriented to person, place, and time. Mental status is at baseline. Psychiatric: Mood and Affect: Mood normal. Behavior: Behavior normal. Thought Content: Thought content normal. Judgment: Judgment normal. ASSESSMENT: Pain radiating to lower abdomen (Primary) - URINALYSIS, POINT OF CARE Small WBC - CULTURE, URINE, QUANTITATIVE Fever, unspecified fever cause - RETURN TO WORK 04/10 Acute cough - INFLUENZA A/B RSV SARS-COV2,PCR Follow Up: Return if symptoms worsen or fail to improve, for Clinic Visit. | For: Clinic Visit Sourav Cunningham PA-C [address] [address] documented in this encounter Nursing Notes * Anand Hammer LPN - 04/05/2023 5:03 PM EST Paula Arzate is a 63 year old female who presents to walk-in clinic today complaining of Chief Complaint Patient presents with Fever At home 100 Generalized Body Aches How lon-7-24 Tried: Tylenol (2-6-24), Ibuprofen (2-7-24) Sudafed Pt accompanied by: Self documented in this encounter Plan of Treatment Upcoming Encounters Date Type Department Care Team (Late st Contact Info) Description 04/12/2023 4:00 PM EST Appointment Radiology, [facility] [address] [place] [address] 06/19/2023 5:00 PM EDT Office Visit Family Practice, [facility] [address] [place] [address] Petra De La Cruz PA-C [address] [place] [address] 07/26/2023 8:00 AM EDT Telemedicine Urogynecology [facility] [address] [place] [address] Jeffery Hamlin MD [address] [place] [address] 08/23/2023 3:10 PM EDT Office Visit Urogynecology [facility] [address] [place] [address] Jeffery Hamlin MD [address] [place] [address] Pending Results Name Type Priority Associated Diagnoses Date /Time CULTURE, URINE, QUANTITATIVE Lab Routine Pain radiating to lower abdomen 04/05/2023 5:40 PM EST INFLUENZA A/B RSV SARS-COV2,PCR Lab Routine Acute cough 04/05/2023 5:40 PM EST Health Maintenance Due Date Last [...] Comments URINALYSIS, POINT OF CARE (ENTER/EDIT) Routine 04/05/2023 5:35 PM EST Pain radiating to lower abdomen documented in this encounter Results * (ABNORMAL) URINALYSIS, POINT OF CARE (ENTER/EDIT) (04/05/2023 5:35 PM EST) Color, Urine Yellow Yellow or Light Yellow Clarity, Urine Slightly Cloudy(A) Clear Glucose, Urine Negative Negative mg/dL Bilirubin, Urine Negative Negative Ketone, Urine Negative Negative mg/dL Specific [place], Urine 1.020 1.003 - 1.030 Blood, Urine Negative Negative pH, Urine 7.5 5.0 - 7.5 units Protein, Urine Negative Negative mg/dL Urobilinogen, Urine 0.2 0.2 - 1.0 mg/dL Nitrite, Urine Negative Negative Esterase, Urine Small(A) Negative Urine 04/05/2023 5:35 PM EST Sourav Cunningham PA-C LAB POINT OF CARE TE ST ENTER/EDIT ORDERABLES documented in this encounter Visit Diagnoses Diagnosis Pain radiating to lower abdomen- Primary Fever, unspecified fever cause Acute cough documented in this encounter Advance Directives Latest Code Status on File Code Status Date Activated Date Inactivated Comments Full Code 12/13/2022 2:27 PM 12/13/2022 8:22 PM Thi s order reflects the patients wishes and were consensually agreed upon. Question Answer Comments Discussion of Advance Directives occurred with: Not Discussed due to patient's condition Care Teams Instrumentation Tech Relationship Specialty Start Date End Date Petra De La Cruz PA-C [facility] [place] [address] PCP - General Physician Rug Cleaning Supervisor 05/30/22 documented as of this encounter
--- OUTSIDE RECORDS SUMMARY | 2023-07-15 09:55 | External Medical Summary | Summary of Care ---
Author Name Unknown Organization [facility] Address [address] [place] [address] Phone [phone] Care Team Providers Care Swine Nutritionist Name Role Phone Petra De La Cruz PA-C Primary Care Provider Reason for Visit * Reason Onset Date Comments TB Test Reading 01/31/2023 Encounter Details Date Type Department Care Team (Late st Contact Info) Description 01/31/2023 10:45 AM EST Immunization/In jection [facility] [address] [phone] Michelle, Nurse [facility] [address] [facility] [place] [address] Arrived Allergies Active Allergy Reactions Criticality Noted Date Comments Sulfa Antibiotics Rash Low 08/04/2020 documented as of this encounter (statuses as of 01/31/2023) Medications Medication Sig Dispensed Refills Start Date [...] as of this encounter (statuses as of 01/31/2023) Active Problems Problem Noted Date Diagnosed Date [...] as of this encounter (statuses as of 01/31/2023) Immunizations Name Administration Dates Next Due PPD [...] on file documented as of this encounter Progress Notes * Kaylie Timmons CMA - 01/31/2023 10:45 AM EST Patient here for PPD reading. PPD Results: 0 mm documented in this encounter Plan of Treatment Upcoming Encounters Date Type Department Care Team (Late st Contact Info) Description 04/12/2023 10:00 AM EST Appointment Radiology, [facility] [address] [place] [address] 06/19/2023 5:00 PM EDT Office Visit Family Practice, [place] [address] [place] [address] Petra De La Cruz, QI [address] [place] [address] 07/21/2023 8:30 AM EDT Office Visit Gynecology/[facility] [place] [address] [place] [phone] Denise Koroma PA-C [address] [place] [address] Health Maintenance Due Date Last Done Comments [...] Discussed due to patient's condition Care Teams Swine Nutritionist Relationship Specialty Start Date End Date Petra De La Cruz PA-C [facility] [place] [address] PCP - General Physician Casino Change Attendant 05/30/22 documented as of this encounter
--- OUTSIDE RECORDS SUMMARY | 2023-07-15 09:55 | External Medical Summary ---
Author Name Unknown Address Unknown Organization K01:LABORATORY [facility] - [address] [facility] [address] Laboratory Report Ordering Provider Test Date Status TONY CHOE 04/05/2023 17:40:40 Final Observation Date Value Abnormality Reference (Units ) Status SARS Coronavirus 2 04/05/2023 17:40:40 Negative N egative Final No SARS-CoV2 Coronavirus RNA detected by PCR (amplified probe).
This automated test was developed and its performance characteristics determined by [facility]. It has not been cleared or approved by the U.S. Food and Drug Administration (FDA). FDA does not require this test to go thru premarket FDA review. This test is used for clinical purposes. It should not be regarded as investigational or for research. This laboratory is certified under the Clinical Laboratory Improvement Amendments (CLIA) as qualified to perform high complexity clinical laboratory testing.

This test is a nucleic acid amplification test (NAAT), a reverse transcriptase polymerase chain reaction (RT-PCR) test, or a Centers for Disease Control-acceptable equivalent. The test is performed in a high complexity Clinical Laboratory Improvement Amendments-(CLIA) certified laboratory. The test is acceptable for SARS-CoV-2 diagnosis, surveillance, and travel within the [place] and to most countries. Please check with local testing authorities about requirements before travel.

The validation of bronchial specimens, tracheal aspirates, and sputum for this assay was developed and performance characteristics determined by [facility]. The validation of alternate specimen types has not been cleared or approved by the U.S. Food and Drug Administration (FDA). It has been determined that such clearance or approval is not necessary. Influenza virus A RNA [Prese nce] in Specimen by [facility] with probe detection 04/05/2023 17:40:40 Negative Negative Final No Influenza A RNA detected by PCR (amplified probe) Influenza virus B RNA [Prese nce] in Specimen by [facility] with probe detection 04/05/2023 17:40:40 Negative Negative Final No Influenza B RNA detected by PCR (amplified probe) Respiratory syncytial virus RNA [Identifier] in Specimen by [facility] with probe detection 04/05/2023 17:40:40 Negative Negative Final No Respiratory Syncytial Vir us RNA detected by PCR (amplified probe) Performing Location LABORATORY [address] [place]ilyn [place]. [facility] [address]
--- OUTSIDE RECORDS SUMMARY | 2023-07-15 09:55 | External Medical Summary | Summary of Care ---
Author Name Unknown Organization [facility] Address [address] [place] [address] Phone [phone] Care Team Providers Care Command Post Superintendent Name Role Phone Petra De La Cruz PA-C Primary Care Provider Reason for Visit * Reason Onset Date Comments Surgery 03/15/2023 Encounter Details Date Type Department Care Team (Late st Contact Info) Description 03/15/2023 Telephone Urogynecology [facility] [address] [place] [address] Jeffery Hamlin MD [address] [place] [address] Surgery Allergies Active Allergy Reactions Criticality Noted Date Comments Sulfa Antibiotics Rash Low 08/04/2020 documented as of this encounter (statuses as of 04/10/2023) Medications Medication Sig Dispensed Refills Start Date [...] needed (pain). 30 Capsule 1 03/14/2023 Active documented as of this encounter (statuses as of 04/10/2023) Active Problems Problem Noted Date Diagnosed Date [...] as of this encounter (statuses as of 04/10/2023) Immunizations Name Administration Dates Next Due PPD [...] encounter Miscellaneous Notes * Telephone Encounter - Sharona Bailon MED [...] is having surgery with Dr Hamlin at [facility] on 07/23 for a Robotic assisted [...] and schedule surgery with Dr Hamlin at [facility]. documented in this encounter Plan of Treatment Upcoming Encounters Date Type Department Care Team (Late st Contact Info) Description 04/12/2023 4:00 PM EST Appointment Radiology, [facility] [address] [place] [address] 06/19/2023 5:00 PM EDT Office Visit [facility] [address] [place] [address] Petra De La Cruz PA-C [address] [place] [address] 07/13/2023 10:15 AM EDT [facility] [address] [place] [address] [facility] [address] [facility] [address] 07/26/2023 8:00 AM EDT Telemedicine Urogynecology [facility] [address] [place] [address] Jeffery Hamlin MD [address] [place] [address] 08/23/2023 3:10 PM EDT Office Visit Urogynecology [facility] [address] [place] [address] Jeffery Hamlin MD [address] [place] [address] Health Maintenance Due Date Last Done Comments [...] Discussed due to patient's condition Care Teams Command Post Superintendent Relationship Specialty Start Date End Date Petra De La Cruz PA-C [address] [place] [address] PCP - General Physician Agricultural Education Instructor 05/30/22 documented as of this encounter
--- OUTSIDE RECORDS SUMMARY | 2023-07-15 09:55 | External Medical Summary | Summary of Care ---
Author Name Unknown Organization [facility] Address [address] [place] [address] Phone [phone] Care Team Providers Care Marble Mason Name Role Phone Petra De La Cruz PA-C Primary Care Provider Reason for Visit * Reason Comments Urinary Tract Infection Symptoms Encounter Details Date Type Department Care Team ([facility] st Contact Info) Description 02/11/2023 11:00 AM EST [facility] Visit [address] [address] Janina Cartagena PA-C [address] [place] [address] UTI symptoms* Allergies Active Allergy Reactions Criticality Noted Date Comments Sulfa Antibiotics Rash Low 08/04/2020 documented as of this encounter (statuses as of 02/11/2023) Medications Medication Sig Dispensed Refills Start Date [...] Tablet before bedtime. Do all this for 7 days. 14 Tablet 0 02/11/2023 3 Active Ciprofloxacin HCl 500 MG Oral Tablet [...] as of this encounter (statuses as of 02/11/2023) Active Problems Problem Noted Date Diagnosed Date [...] as of this encounter (statuses as of 02/11/2023) Immunizations Name Administration Dates Next Due PPD [...] Sign Reading Time Taken Comments Blood Pressure 124/60 02/11/2023 10:50 AM EST Pulse 71 02/11/2023 10:50 AM EST Temperature 36.1 C (97 F) 02/11/2023 10: 50 AM EST Respiratory Rate 20 02/11/2023 10:5 0 AM EST Oxygen Saturation 97% 02/11/2023 10: 50 AM EST Inhaled Oxygen Concentration - - Weight 77.5 kg (170 lb 12.8 oz) 023 10:50 AM EST Height 162.6 cm (5' 4") 02/11/2023 10:5 0 AM EST Body Mass Index 29.32 02/11/2023 10:50 AM EST documented in this encounter Progress Notes * Janina Cartagena PA-C - 02/11/2023 11:15 AM EST Images from the original note were not included. History of Present Illness Paula Arzate is a 63 year old female that presents for Urinary Tract Infection Symptoms UTI sxs since yesterday. Sxs incl urinary frequency, burning with urination, pain with urination, and chills. No N/V. NormalBMs. Appetite is unchanged. History of recurrent UTIs and prolapsed bladder. 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 Physical Exam Vitals: 02/11/23 1050 Temp: 36.1 C (97 F) Pulse: 71 Resp: 20 SpO2: 97% BP: 124/60 BMI: 29.3 BP Readings from Last 3 Encounters: 02/11/23 124/60 01/23/23 144/82 01/11/23 132/80 Wt Readings from Last 3 Encounters: 02/11/23 77.5 kg (170 lb 12.8 oz) 01/11/23 76.5 kg (168 lb 9.6 oz) 12/19/22 73.8 kg (162 lb 9.6 oz) Physical Exam Vitals and nursing note reviewed. Constitutional: Appearance: Normal appearance. HENT: Head: Normocephalic and atraumatic. Mouth/Throat: Mouth: Mucous membranes are moist. Cardiovascular: Heart sounds: Normal heart sounds. Pulmonary: Breath sounds: Normal breath sounds. Abdominal: General: Bowel sounds are normal. There is distension. Palpations: There is no mass. Tenderness: There is no abdominal tenderness. There is no right CVA tenderness or left CVA tenderness. Neurological: Mental Status: She is alert and oriented to person, place, and time. I have reviewed the following results: Urinalysis, POC Assessment and Plan 1. UTI symptoms - URINALYSIS, POINT OF CARE (ENTER/EDIT) - CULTURE, URINE, QUANTITATIVE - Ciprofloxacin HCl 500 MG Oral Tablet (Cipro); Take 1 Tablet by mouth in the morning and 1 Tablet before bedtime. Do all this for 7 days. Dispense: 14 Tablet; Refill: 0 Continue to push fluids Can use prn Tylenol per package directions for pain/fevers Follow-up results of urine culture once available - starting empiric treatment Follow-up with PCP if not improving within 2-3 days, sooner if worsening (i.e. Fevers, shaking chills, vomiting, back pain) despite above treatment plan Wrap-Up Follow Up: Return if symptoms worsen or fail to improve. Time: I spent a total of 20-29 minutes (exact time 20 mins) on the date of service in preparation, delivery, and documentation of the care provided to Paula Arzate excluding any time spent in the performance of separately billed services. The above was discussed and understanding was expressed. Janina Cartagena PA-C [address] [phone] documented in this encounter Nursing Notes * Stephanie De La Cruz LPN - 02/11/2023 10:49 AM EST Paula Arzate is a 63 year old female who presents to walk-in clinic today complaining of Chief Complaint Patient presents with Urinary Tract Infection Symptoms Main Symptoms:urinary sx, frequency, urgency, cramps,chills Cause: unknown How long: yesterday Tried: ditropan Pt accompanied by: self documented in this encounter Plan of Treatment Upcoming Encounters Date Type Department Care Team ([facility] st Contact Info) Description 04/12/2023 10:00 AM EST Appointment Radiology, [place] [address] [place] [address] 06/19/2023 5:00 PM EDT Office Visit [facility] [address] [place] [address] Petra De La Cruz PA-C [address] [place] [address] 07/21/2023 8:30 AM EDT Office Visit Gynecology/Obstetics [place] [address] [place] [phone] Denies Koroma PA-C [address] [place] [address] Pending Results Name Type Priority Associated Diagnoses Date /Time CULTURE, URINE, QUANTITATIVE Lab Routine UTI symptoms 02/11/2023 11:02 AM EST Health Maintenance Due Date Last Done [...] Comments URINALYSIS, POINT OF CARE (ENTER/EDIT) Routine 02/11/2023 11:01 AM EST UTI symptoms documented in this encounter Results * (ABNORMAL) URINALYSIS, POINT OF CARE (ENTER/EDIT) (02/11/2023 11:01 AM EST) Color, Urine Yellow Yellow or Light Yellow Clarity, Urine Cloudy(A) Clear Glucose, Urine Negative Negative mg/dL Bilirubin, Urine Negative Negative Ketone, Urine Negative Negative mg/dL Specific [place], Urine 1.025 1.003 - 1.030 Blood, Urine Large(A) Negative pH, Urine 5.5 5.0 - 7.5 units Protein, Urine 100(A) Negative mg/dL Urobilinogen, Urine 0.2 0.2 - 1.0 mg/dL Nitrite, Urine Positive(A) Negative Esterase, Urine Large(A) Negative Urine 02/11/2023 11:0 1 AM EST Janina Cartagena PA-C LAB POINT OF CAR E TEST ENTER/EDIT ORDERABLES documented in this encounter Visit Diagnoses Diagnosis UTI symptoms- Primary Other symptoms involving urinary system documented in this encounter Advance Directives Latest Code Status on File Code Status Date Activated Date Inactivated Comments Full Code 12/13/2022 2:27 PM 12/13/2022 8:22 PM Thi s order reflects the patients wishes and were consensually agreed upon. Question Answer Comments Discussion of Advance Directives occurred with: Not Discussed due to patient's condition Care Teams Marble Mason Relationship Specialty Start Date End Date Petra De La Cruz PA-C [address] [place] [address] PCP - General Physician Ammonia Refrigeration Technician 05/30/22 documented as of this encounter
--- OUTSIDE RECORDS SUMMARY | 2023-07-15 09:55 | External Medical Summary | Summary of Care ---
Author Name Unknown Organization [facility] Address [address] [place] [address] Phone [phone] Care Team Providers Care Bowling Ball Finisher Name Role Phone Petra De La Cruz PA-C Primary Care Provider Reason for Visit * Reason Comments Other Tooth pain Encounter Details Date Type Department Care Team (Late st Contact Info) Description 03/21/2023 4:00 PM EST Convenient Care Visit [facility] [address] [place] [address] [place] [phone] Marialuisa Pena PA-C [address] [place] [phone] Pain, dental* Allergies Active Allergy Reactions Criticality Noted Date Comments Sulfa Antibiotics Rash Low 08/04/2020 documented as of this encounter (statuses as of 03/21/2023) Medications Medication Sig Dispensed Refills Start Date [...] and 1 Tablet before bedtime. 0 Active predniSONE 20 MG Oral Tablet (Deltasone)Indicatio ns:Pain, dental Take 2 Tablets by mouth in the morning for 5 days. 10 Tablet 0 03/21/2023 4 Active Amoxicillin 500 MG Oral Capsule (Amoxil)Indications: Tooth abscess Take 1 Capsule by mouth in the morning and 1 Capsule at noon and 1 Capsule before bedtime. Do all this for 10 days. 30 Capsule 0 03/11/2023 4 Discontinue d(End of Procedure) documented as of this encounter (statuses as of 03/21/2023) Active Problems Problem Noted Date Diagnosed Date [...] as of this encounter (statuses as of 03/21/2023) Immunizations Name Administration Dates Next Due PPD [...] Sign Reading Time Taken Comments Blood Pressure 130/60 03/21/2023 3:46 PM EST Pulse 74 03/21/2023 3:46 PM EST Temperature 36.2 C (97.2 F) 03/21/2023 3:46 PM ES T Respiratory Rate 20 03/21/2023 3:46 PM EST Oxygen Saturation 96% 03/21/2023 3:46 PM EST Inhaled Oxygen Concentration - - Weight 77.1 kg (170 lb) 03/21/2023 3:46 PM EST Height 162.6 cm (5' 4") 03/21/2023 3:46 PM EST Body Mass Index 29.18 03/21/2023 3:46 PM EST documented in this encounter Progress Notes * Marialuisa Pena PA-C - 03/21/2023 5:36 PM EST Images from the original note were not included. Subjective: Paula Arzate is a 63 year old female. Chief Complaint Patient presents with Other Tooth pain HPI: Here today with dental pain. Seen last week for a broken tooth and was started on amoxil. Since then she had no improvement in her pain. Seen by her dentist today who switched her to augmentin and scheduled her for a root canal in 3 days. She is concerned as she is still having pain. She is taking tylenol and motrin during the day and gabapentin at night. Patient Active Problem List Diagnosis Code HTN, [...] Current Outpatient Medications Medication Sig Dispense Refill Amoxicillin-Pot Clavulanate 875-125 MG Oral Tablet (Augmentin) Take 1 Tablet by mouth in the morning and 1 Tablet before bedtime. Caltrate 600+D3 Soft 600-800 MG-UNIT Oral Tablet Chewable (Calcium Carb- Cholecalciferol) Take by mouth. Patient takes 2 daily. cloNIDine HCl 0.1 MG Oral Tablet (Catapres) TAKE 1 TABLET BY MOUTH EVERY MORNING, 1 TABLET BY MOUTHAT NOON AND 1 TABLET BY MOUTH AT BEDTIME 30 Tablet 0 diphenhydrAMINE HCl 25 MG Oral Capsule Benadryl Estradiol 0.1 MG/GM Vaginal Cream (Estrace) Apply pea sized amount (0.5 gm) vaginally every other night. 42.5 g 3 Gabapentin 100 MG Oral Capsule (Neurontin) Take 1 Capsule by mouth daily as needed (pain). 30 Capsule 1 oxyBUTYnin Chloride 5 MG Oral Tablet (Ditropan) TAKE ONE-HALF (1/2) TABLET IN THE MORNING, ONE-HALF(1/2) TABLET AT NOON AND ONE-HALF (1/2) TABLET BEFORE BEDTIME 135 Tablet 3 predniSONE 20 MG Oral Tablet (Deltasone) Take 2 Tablets by mouth in the morning for 5 days. 10 Tablet 0 Rosuvastatin Calcium 10 MG Oral Tablet (Crestor) TAKE 1 TABLET BY MOUTH IN THE MORNING 30 Tablet 5 Slow Fe 142 (45 Fe) MG Oral Tablet Extended Release (Ferrous Sulfate ER) Take by mouth 2 times a day. Spironolactone 25 MG Oral Tablet (Aldactone) TAKE 1 TO 2 TABLETS ONCE DAILY 180 Tablet 1 Synthroid 125 MCG Oral Tablet TAKE 1 TABLET BY MOUTH IN THE MORNING (AT LEAST 30 MINUTES PRIOR TO BREAKFAST OR OTHER MEDS) 90 Tablet 1 No current facility-administered medications for this visit. Review of patient's allergies indicates: Allergen Reactions Sulfa Antibiotics Rash ROS: all areas negative except as mentioned under HPI Physical Exam: BP 130/60 | Pulse 74 | Temp 36.2 C (97.2 F) (Tympanic) | Resp 20 | Ht 1.626 m (5' 4") | Wt 77.1kg (170 lb) | SpO2 96% | BMI 29.18 kg/m | BSA 1.87 m Physical Exam Vitals and nursing note reviewed. Constitutional: General: She is not in acute distress. Appearance: Normal appearance. She is not ill-appearing. HENT: Head: Normocephalic and atraumatic. Right Ear: External ear normal. Left Ear: External ear normal. Nose: Nose normal. No congestion or rhinorrhea. Mouth/Throat: Mouth: Mucous membranes are moist. Dentition: Dental tenderness and dental caries present. Pharynx: Oropharynx is clear. Eyes: Extraocular Movements: Extraocular movements intact. Conjunctiva/sclera: Conjunctivae normal. Pupils: Pupils are equal, round, and reactive to light. Cardiovascular: Rate and Rhythm: Normal rate. Pulmonary: Effort: Pulmonary effort is normal. No respiratory distress. Skin: General: Skin is warm and dry. Neurological: Mental Status: She is alert and oriented to person, place, and time. Psychiatric: Mood and Affect: Mood normal. Behavior: Behavior normal. Assessment/Plan: Paula was seen today for other. Diagnoses and all orders for this visit: Pain, dental - predniSONE 20 MG Oral Tablet (Deltasone); Take 2 Tablets by mouth in the morning for 5 days. Should continue the Augmentin and follow up with her dentist in 3 days as scheduled. Supportive care discussed. Strict return/ED precautions given, pt agreeable to plan. Marialuisa Pena PA-C [facility] [address] [place] [id number] documented in this encounter Nursing Notes * Stephanie De La Cruz LPN - 03/21/2023 3:44 PM EST Paula Arzate is a 63 year old female who presents to walk-in clinic today complaining of Chief Complaint Patient presents with Other Tooth pain Main Symptoms:tooth pain Cause: tooth needs crown, was to dentist today and given augmentin but still has pain How lon weeks Tried: amoxicillin, gabapentin Pt accompanied by: self documented in this encounter Plan of Treatment Upcoming Encounters Date Type Department Care Team (Late st Contact Info) Description 04/12/2023 10:00 AM EST Appointment Radiology, [facility] [address] [place] [address] 06/19/2023 5:00 PM EDT Office Visit Family [facility] [address] [place] [address] Petra De La Cruz PA-C [address] [place] [address] 07/21/2023 8:30 AM EDT Office Visit Gynecology/Obstetics [place] [address] [place] [phone] Denise Koroma PA-C [address] [place] [address] Health Maintenance Due Date Last Done Comments [...] as of this encounter Visit Diagnoses Diagnosis Pain, dental- Primary Unspecified disorder of the teeth and supporting structures documented in this encounter Advance Directives Latest Code Status on File Code Status Date Activated Date Inactivated Comments Full Code 12/13/2022 2:27 PM 12/13/2022 8:22 PM Thi s order reflects the patients wishes and were consensually agreed upon. Question Answer Comments Discussion of Advance Directives occurred with: Not Discussed due to patient's condition Care Teams Bowling Ball Finisher Relationship Specialty Start Date End Date Petra De La Cruz PA-C [address] [place] [address] PCP - General Physician Traffic Administrator 05/30/22 documented as of this encounter
--- OUTSIDE RECORDS SUMMARY | 2023-07-15 09:55 | External Medical Summary | Summary of Care ---
Author Name Unknown Organization [facility] Address [address] [place] [address] Phone [phone] Care Team Providers Care Sales Enablement Lead Name Role Phone Petra Land PA-C Primary Care Provider Reason for Visit * Reason Onset Date Comments Medication Refill 04/14/2023 Encounter Details Date Type Department Care Team (Late st Contact Info) Description 04/14/2023 Refill [facility] [address] [place] [address] Petra Land PA-C [address] [place], [place] [id number] Allergies Active Allergy Reactions Criticality Noted Date [...] AT BEDTIME 270 Tablet 0 04/14/2023 Active cloNIDine HCl 0.1 MG Oral Tablet [...] Telephone Encounter - Petra Land PA-C - 04/14/2023 12:43 PM EST Signed Prescriptions: Disp Refills cloNIDine HCl 0.1 MG Oral Tablet (Catapres)270 Ta*0 Sig: TAKE 1 TABLET BY MOUTH EVERY MORNING, 1 TABLET BY MOUTH AT NOON AND 1 TABLET BY MOUTH AT BEDTIME Authorizing Provider: PETRA LAND * Telephone Encounter - Adriana Skelton, MED ASSIST - 04/14/2023 11:02 AM EST Pending Prescriptions: Disp Refills cloNIDine HCl 0.1 MG Oral Tablet (Catapre*30 Tab*0 Sig: TAKE 1 TABLET BY MOUTH EVERY MORNING, 1 TABLET BY MOUTH AT NOON AND 1 TABLET BY MOUTH AT BEDTIME Last Visit: 06/13/2022 (in office), 11/11/2021 (telemedicine) Next Visit: 06/19/2023 Last date the medication was ordered: 12/26/2022 Patient Active Problem List Diagnosis Code HTN, [...] Results Component Value Date/Time CREATININE - [facility] 0.7 05/30/2022 11:30 AM CREATININE, RANDOM URINE - [facility] 27 03/14/2022 12:34 PM Lab Results Component Value Date/Time POTASSIUM - [facility] 4.3 05/30/2022 11:30 AM Lab Results Component Value Date/Time TSH - [facility] 0.82 05/30/2022 11:30 AM Lab Results Component Value Date/Time LDL CHOLESTEROL (CALCULATED) - [facility] 81 05/30/2022 11:30 AM LDL CHOLESTEROL (CALCULATED) - [facility] 169 (H) 03/14/2022 12:34 PM Lab Results Component Value Date/Time ALT - [facility] 38 (H) 05/30/2022 11:30 AM Hemoglobin AIC Results: No results found for: "HEMOGLOBIN A1C" documented in this encounter Plan of Treatment Upcoming Encounters Date Type Department Care Team (Late st Contact Info) Description 06/19/2023 5:00 PM EDT Office Visit [facility] [address] [place] [address] Petra Land PA-C [address] [place] [address] 07/13/2023 10:15 AM EDT [facility] [address] [place] [address] Damion Pitt MD [address] [place] [facility] [place] [address] 07/26/2023 8:00 AM EDT Telemedicine Urogynecology [facility] [address] [facility] [place] [address] Jeffery Hamlin MD [address] [facility] [place] [address] 07/31/2023 10:15 AM EDT Appointment Radiology, [facility] [address] [place] [address] 08/23/2023 3:10 PM EDT Office Visit Urogynecology [facility] [address] [place] [address] Jeffery Hamlin MD [address] [place] [address] Health Maintenance Due Date Last Done Comments HIV Screening 1975 Hepatitis C Screening 01/25/1976 Colonoscopy 2003 Fecal Occult Blood Test 2003 Sigmoidoscopy 2003 Zoster Vaccines (1 of 2) 01/25/2008 COVID-19 Vaccine (2022-24 season) 2022 DXA Scan 2023 Pneumococcal Vaccine: [...] Code 12/13/2022 2:27 PM 12/13/2022 8:22 PM Th is order reflects the patients wishes and were consensually agreed upon. Question Answer Comments Discussion of Advance Directives occurred with: Not Discussed due to patient's condition Care Teams Sales Enablement Lead Relationship Specialty Start Date End Date Petra Land PA-C [address] [place] [address] PCP - General Physician Quality Assurance Coach 05/30/22 documented as of this encounter
--- OUTSIDE RECORDS SUMMARY | 2023-07-15 09:55 | External Medical Summary | Summary of Care ---
Author Name Unknown Organization [facility] Address [address] [place] [address] Phone [phone] Care Team Providers Care Chief Unit Forester Name Role Phone Petra De La Cruz PA-C Primary Care Provider Reason for Visit * Reason Comments Post-Op Encounter Details Date Type Department Care Team (Latest Contact Info) Description 01/23/2023 1:30 PM EST Office Visit Gynecology/Obstetic s [facility] [address] [place] [phone] Alan Olsen MD [address] [place] [address] Postoperative state*; YONIS III (cervical intraepithelial neoplasia III) Allergies Active Allergy Reactions Criticality Noted Date Comments Sulfa Antibiotics Rash Low 08/04/2020 documented as of this encounter (statuses as of 01/23/2023) Medications Medication Sig Dispensed Refills Start Date [...] BEFORE BEDTIME 135 Tablet 3 12/19/2022 Active Gabapentin 100 MG Oral Capsule (Neurontin)Indicatio ns:Nerve pain Take 1 Capsule by mouth in the morning. 30 Capsule 0 12/26/2022 Active cloNIDine HCl 0.1 MG Oral Tablet (Catapres) TAKE 1 TABLET BY MOUTH EVERY MORNING, 1 TABLET BY MOUTH AT NOON AND 1 TABLET BY MOUTH AT BEDTIME 30 Tablet 0 12/26/2022 Active Estradiol 0.1 MG/GM Vaginal Cream (Estrace) Apply pea sized amount (0.5 gm) vaginally every other night. 42.5 g 3 01/11/2023 Active documented as of this encounter (statuses as of 01/23/2023) Active Problems Problem Noted Date Diagnosed Date [...] as of this encounter (statuses as of 01/23/2023) Immunizations Name Administration Dates Next Due PPD [...] Sign Reading Time Taken Comments Blood Pressure 144/82 01/23/2023 1:26 PM EST Pulse - - Temperature - - Respiratory Rate - - Oxygen Saturation - - Inhaled Oxygen Concentration - - Weight - - Height - - Body Mass Index - - documented in this encounter Progress Notes * Alan Olsen MD - 01/23/2023 1:47 PM EST Paula Arzate 01/23/2023 CC: Here for 6 weeks post op check HPI: The pt is a 62 year old female presents 6 weeks post op from a LEEP C/o pelvic pressure still waiting for call back from urogyn States doing well with no concerns today admits to mild soreness Passing flatus and having normal bowel movements Voiding spontaneously with minimal difficulty Pain well controlled . 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 Name of diagnostic sales specialist: Parul glover student A/P: 62 year old yo female 6 wks post op from LEEP Advised healing well Advised benign path and may resume all activities without restriction Advised rtc for routine annual next year advised call with any questions or concerns Advised if spotting after intercourse pelvic rest x 1-2 wks to allow healing Advised pap x 2 consecutive years if neg then repeat 3 years after and then every 5 years to complete 20 years Alan Olsen MD documented in this encounter Nursing Notes * Ilsa Burns RN - 01/23/2023 1:25 PM EST Patient presents for 6 week post op following LEEP. documented in this encounter Plan of Treatment Upcoming Encounters Date Type Department Care Team (Late st Contact Info) Description 04/12/2023 10:00 AM EST Appointment Radiology, [facility] [address] [place] [address] 06/19/2023 5:00 PM EDT Office Visit Family Practice, [facility] [address] [place] [address] Petra De La Cruz PA-C [address] [place] [address] 07/21/2023 8:30 AM EDT Office Visit Gynecology/Obstetics [facility] [address] [place] [phone] Denise Koroma PA-C [address] [place] [address] Health Maintenance Due Date Last Done Comments COVID-19 Vaccine (#1) 1960 HIV Screening 1975 Hepatitis C Screening 01/25/1976 Colonoscopy 2003 Fecal Occult Blood Test 2003 Sigmoidoscopy 2003 Zoster Vaccines (1 of 2) 01/25/2008 Influenza Vaccine (FLU shot) (#1) 2022 12/28/2021, 10/30/2020 Mammogram 04/11/2023 04/11/2022, 10/15/2020 GFR 05/31/2023 05/30/2022, 02/27, 04/20/2021, Additional history exists TSH 05/31/2023 05/30/2022, 02/27, 07/09/2021, Additional history exists Depression Screening 06/14/2023 06/13/2022 Albumin/Creatinine Ratio 03/14/2025 03/14/2022, 03/31 Diabetes Screening 05/30/2025 05/30/2022, 0 03/14/2022, 04/20/2021, Additional history exists Cologuard 07/06/2025 07/06/2022, 05/29, 06/25/2022 Colorectal Cancer Screening 07/06/2025 Pap Smear 07/18/2025 07/18/2022 Lipid Panel 05/31/2027 05/30/2022, 02/27, 04/20/2021, Additional history exists Cervical Cancer Screening 07/19/2027 HPV/Co-Test 07/19/2027 07/18/2022 DTaP,Tdap,and Td Vaccines (2 - Td or Tdap) 08/04/2030 08/04/2020 GARDASIL-HPV IMMUNIZATION SERIES Aged Out No longer eligible based on patient's age to complete this topic Hepatitis B Aged Out No longer eligi ble based on patient's age to complete this topic MENINGOCOCCAL (MENACTRA/MENVEO) Aged Out No longer eligible based on patient's age to complete this topic Pneumococcal Vaccine: Pediatrics (0 to 5 Years) and At-Risk Patients (6 to 64 Years) Aged Out No longer eligible based on patient's age to complete this topic documented as of this encounter Medical Devices Not on filedocumented as of this encounter Visit Diagnoses Diagnosis Postoperative state- Primary Other postprocedural status YONIS III (cervical intraepithelial neoplasia III) Carcinoma in situ of cervix uteri documented in this encounter Advance Directives Latest Code Status on File Code Status Date Activated Date Inactivated Comments Full Code 12/13/2022 2:27 PM 12/13/2022 8:22 PM Thi s order reflects the patients wishes and were consensually agreed upon. Question Answer Comments Discussion of Advance Directives occurred with: Not Discussed due to patient's condition Care Teams Chief Unit Forester Relationship Specialty Start Date End Date Petra De La Cruz PA-C [address] [place] [address] PCP - General Physician Business Taxes Specialist 05/30/22 documented as of this encounter
--- OUTSIDE RECORDS SUMMARY | 2023-07-15 22:08 | External Medical Summary | Summary of Care ---
Author Name Unknown Organization [facility] Address [address] [place] [address] Phone [phone] Care Team Providers Care Senior Business Development Manager Name Role Phone Petra De La Cruz PA-C Primary Care Provider Encounter Details Date Type Department Care Team (Late st Contact Info) Description 07/14/2023 Result Scan Unspecified Department <No scans attached> Allergies Active Allergy Reactions Criticality Noted Date Comments Sulfa Antibiotics Rash Low 08/04/2020 documented as of this encounter (statuses as of 07/14/2023) Medications Medication Sig Dispensed Refills Start Date [...] taking.Reported on 06/23/2023 Synthroid 125 MCG Oral TabletIndications:Ac [...] FOR PAIN 90 Capsule 0 06/19/2023 Active Nitrofurantoin Monohyd Macro 100 MG Oral Capsule (Macrobid) Take 1 Capsule by mouth in the morning and 1 Capsule before bedtime. Do all this for 7 days. With food until gone. 14 Capsule 0 07/11/2023 Active cloNIDine HCl 0.1 MG Oral Tablet (Catapres) TAKE 1 TABLET EVERY MORNING, 1 TABLET AT NOON AND 1 TABLET AT BEDTIME (NEED OFFICE VISIT) 270 Tablet 1 07/12/2023 Active documented as of this encounter (statuses as of 07/14/2023) Active Problems Problem Noted Date Diagnosed Date [...] as of this encounter (statuses as of 07/14/2023) Immunizations Name Administration Dates Next Due PPD [...] 1:15 PM EDT Cardiac Studies Cardiac Studies [facility] [address] [facility] [place] [address] 07/26/2023 8:00 AM EDT Telemedicine [facility] [address] [facility] [place] [address] Jeffery Hamlin MD [address] [place] [address] 07/31/2023 10:15 AM EDT Appointment Radiology, [facility] [address] [place], [place] [id number] 07/31/2023 1:00 PM EDT Appointment Radiology, [place] [address] [place] [address] 08/23/2023 3:10 PM EDT Office Visit Urogynecology [facility] [address] [place] [address] Jeffery Hamlin MD [address] [place] [address] 06/24/2024 5:00 PM EDT [facility] [address] [place] [address] Petra De La Cruz PA-C [address] [place] [address] 07/10/2024 11:30 AM EDT [facility] [address] [place] [address] Kaila Simental, CURLY [address] [place], [place] [id number] Health Maintenance Due Date Last Done Comments [...] Procedure Name Priority Date/Time Associated Diagnosis Comments OUTSIDE LAB RESULTS 07/14/2023 documented in this encounter Results * OUTSIDE LAB RESULTS (07/14/2023) 07/14/2023 No Physician Data Unknown LABORATORY documented in this encounter Additional Health Concerns Infection Onset Date Last Indicated Resolved Time MRSA 07/10/2023 07/10/2023 documented as of this encounter Advance Directives Latest Code Status on File Code Status Date Activated Date Inactivated Comments Full Code 12/13/2022 2:27 PM 12/13/2022 8:22 PM Thi s order reflects the patients wishes and were consensually agreed upon. Question Answer Comments Discussion of Advance Directives occurred with: Not Discussed due to patient's condition Care Teams Senior Business Development Manager Relationship Specialty Start Date End Date Petra De La Cruz PA-C [facility] [place] [address] PCP - General Physician Retirement Sales Consultant 05/30/22 documented as of this encounter
== END 2023-07-15 09:18 | disposition home or self-care (01) ==
LOC: 4E1 07:49 → ASU 07:49